=== PATIENT | female | born 1980 | race Caucasian/White ===

== ENCOUNTER 2020-04-16 12:03 | Outpatient (REF) | payer OTHER, SELFPAY ==
[2020-04-16 12:24] LABS: COVID-19 Test Negative (Negative)
== END 2020-04-16 12:04 | disposition home or self-care (01) ==
LOC: HO.LAB 12:03
PROVIDERS: Visit Provider Internal Medicine
DX: Z20.828 Contact with and (suspected) exposure to other viral communicable diseases (principal)
CPT/HCPCS: 87635; C9803

== ENCOUNTER 2020-04-22 08:41 | Outpatient (REF) | payer MEDICAID, SELFPAY ==
[2020-04-22 09:35] LABS: COVID-19 Test Negative (Negative)
== END 2020-04-22 08:42 | disposition home or self-care (01) ==
LOC: HO.LAB 08:41
PROVIDERS: Visit Provider Internal Medicine
DX: Z20.828 Contact with and (suspected) exposure to other viral communicable diseases (principal)
CPT/HCPCS: 87635; C9803

== ENCOUNTER 2020-05-10 17:14 | Outpatient (REF) | payer MEDICAID, SELFPAY ==
[2020-05-10 17:49] LABS: COVID-19 Test Negative (Negative); IDNOW Serial# 55D5AD1C
== END 2020-05-10 17:15 | disposition home or self-care (01) ==
LOC: HO.LAB 17:14
PROVIDERS: Visit Provider Internal Medicine
DX: Z20.828 Contact with and (suspected) exposure to other viral communicable diseases (principal)
CPT/HCPCS: 87635; C9803

== ENCOUNTER 2020-05-13 12:05 | Outpatient (REF) | payer MEDICAID, SELFPAY ==
[2020-05-13 12:57] LABS: COVID-19 Test Negative (Negative)
== END 2020-05-13 12:06 | disposition home or self-care (01) ==
LOC: HO.LAB 12:05
PROVIDERS: Visit Provider Internal Medicine
DX: Z20.828 Contact with and (suspected) exposure to other viral communicable diseases (principal)
CPT/HCPCS: 87635; C9803

== ENCOUNTER 2020-05-17 10:25 | Outpatient (REF) | payer OTHER, SELFPAY ==
[2020-05-17 10:46] LABS: COVID-19 Test Negative (Negative)
== END 2020-05-17 10:26 | disposition home or self-care (01) ==
LOC: HO.EMPCOV 10:25
PROVIDERS: PCP Internal Medicine; Visit Provider Internal Medicine
DX: Z20.828 Contact with and (suspected) exposure to other viral communicable diseases (principal)
CPT/HCPCS: 87635; C9803

== ENCOUNTER 2020-06-25 11:04 | Outpatient (REF) | payer OTHER, SELFPAY ==
[2020-06-25 11:21] LABS: COVID-19 Test Negative (Negative)
== END 2020-06-25 11:05 | disposition home or self-care (01) ==
LOC: HO.LAB 11:04
PROVIDERS: Visit Provider Internal Medicine
DX: Z20.822 Contact with and (suspected) exposure to COVID-19 (principal)
CPT/HCPCS: 36415; 87635; C9803

== ENCOUNTER → 2020-08-07 16:01 | Outpatient (BNVA) | payer OTHER, SELFPAY | PROVIDERS: PCP Internal Medicine; Visit Provider Student in an Organized Health Care Education/Training Program | DX: M22.2X9 Patellofemoral disorders, unspecified knee (principal) | CPT/HCPCS: 20610; 99212 ==

== ENCOUNTER → 2020-08-14 13:14 | Outpatient (BNVA) | payer OTHER, SELFPAY | PROVIDERS: PCP Internal Medicine; Visit Provider Student in an Organized Health Care Education/Training Program | DX: M22.2X9 Patellofemoral disorders, unspecified knee (principal); Z79.899 Other long term (current) drug therapy | CPT/HCPCS: 99212 ==

== ENCOUNTER 2020-11-12 15:05 | Outpatient (REF) | payer MEDICAID, SELFPAY ==
[2020-11-12 15:36] LABS: MANUAL DIFF FLAG NO
[2020-11-12 15:54] LABS: Basophils Percent Auto 0.3 % (0-2); Eosinophils Percent Auto 0.6 % (0-4); Hematocrit 40.6 % (37-47); Hemoglobin 13.3 g/dl (12.0-16.0); Imm Gran Abs Auto 0.01 X10*3/uL (0.00-0.03); Imm Gran Pct Auto 0.2 % (0.0-0.4); Lymphocytes Percent Auto 31.7 % (20-40); Mean Corpuscular HGB Conc 32.8 g/dl (31.0-35.0); Mean Corpuscular Hemoglobin 28.7 pg (27.0-33.0); Mean Corpuscular Volume 87.5 fL (80-98); Mean Platelet Volume 9.4 fL (9.4-12.3); Monocytes Absolute Auto 0.6 X10*3/uL (0.1-1.2); Monocytes Percent Auto 8.7 % (2-11); Neutrophils Absolute Auto 3.7 X10*3/uL (2.0-8.3); Neutrophils Percent Auto 58.5 % (45-73); Platelet Count 240 X10*3/uL (160-400); Red Blood Count 4.64 X10*6/uL (4.20-5.50); Red Cell Distribution Width 12.7 % (11.0-16.0); White Blood Count 6.3 X10*3/uL (4.8-10.8)
[2020-11-12 16:04] LABS: Anion Gap 11 (12-20); Blood Urea Nitrogen 13 mg/dL (9-16); Calcium 9.7 mg/dL (8.4-10.2); Carbon Dioxide 27 mmol/L (22-29); Chloride 106 mmol/L (96-108); Estimated Glomerular Filt Rate > 60; Glucose Random 75 mg/dL (60-115); Potassium 3.8 mmol/L (3.3-5.1); Sodium 140 mmol/L (135-145)
[2020-11-12 16:26] LABS: TSH reflex Free T4 1.45 uIU/mL (0.32-4.0)
== END 2020-11-12 15:06 | disposition home or self-care (01) ==
LOC: HO.LAB 15:05
PROVIDERS: Absent Provider Internal Medicine; PCP Internal Medicine; Visit Provider General Practice
DX: M22.2X1 Patellofemoral disorders, right knee (principal); R53.83 Other fatigue; R68.89 Other general symptoms and signs
CPT/HCPCS: 20610; 36415; 80048; 84443; 85025; 99212

== ENCOUNTER 2021-02-25 11:24 | Outpatient (REF) | payer MEDICAID, SELFPAY ==
[2021-02-25 12:41] LABS: COVID-19 Test Negative (Negative)
== END 2021-02-25 11:25 | disposition home or self-care (01) ==
LOC: HO.LAB 11:24
PROVIDERS: PCP Internal Medicine; Visit Provider Internal Medicine
DX: Z20.822 Contact with and (suspected) exposure to COVID-19 (principal)
CPT/HCPCS: 36415; 87635; C9803

== ENCOUNTER 2021-03-10 07:49 | Outpatient (REF) | payer MEDICAID, SELFPAY ==
[2021-03-10 08:54] LABS: COVID-19 Test Negative (Negative)
== END 2021-03-10 07:50 | disposition home or self-care (01) ==
LOC: HO.LAB 07:49
PROVIDERS: PCP Internal Medicine; Visit Provider Internal Medicine
DX: Z20.822 Contact with and (suspected) exposure to COVID-19 (principal)
CPT/HCPCS: 36415; 87635

== ENCOUNTER 2021-04-15 13:11 | Outpatient (REF) | payer MEDICAID, SELFPAY ==
[2021-04-15 15:12] LABS: COVID-19 Test Positive (Negative)
== END 2021-04-15 13:12 | disposition home or self-care (01) ==
LOC: HO.LAB 13:11
PROVIDERS: Visit Provider Internal Medicine
DX: Z20.822 Contact with and (suspected) exposure to COVID-19 (principal)
CPT/HCPCS: 36415; 87635; C9803

== ENCOUNTER 2021-04-17 12:55 | Emergency (ER) | payer MEDICAID, SELFPAY ==
--- NOTE | ~2021-04-17 | XR_ITS ---
EXAMINATION: XR CHEST CLINICAL INFORMATION: Upper respiratory symptoms. COMPARISON: Chest radiographs 01/23/2020, 05/06/2019 TECHNIQUE: Frontal view of the chest was obtained. FINDINGS: There is no lobar or segmental airspace consolidation or definite groundglass opacity. The costophrenic sulci are clear. The heart is normal in size. The vascularity is normal. The hilar and mediastinal contours are unremarkable. No acute bony abnormality. XR/XR chest 1V IMPRESSION: Unremarkable examination.
[2021-04-17 13:30] VITALS: BP 111/69; PULSE 90; RESP 17; TEMP 36.9; O2SAT 98; BMI 24.0
[2021-04-17 15:58] LABS: MANUAL DIFF FLAG NO
[2021-04-17 16:00] LABS: Hematocrit 45.3 % (37.0-47.0); Hemoglobin 15.4 g/dl (12.0-16.0); Lymphocytes Absolute Auto 1.2 X10*3/uL (1.2-4.9); Lymphocytes Percent Auto 39.8 % (20-40); Mean Corpuscular Hemoglobin 29.2 pg (27.0-33.0); Mean Platelet Volume 9.4 fL (9.4-12.3); Monocytes Absolute Auto 0.2 X10*3/uL (0.1-1.2); Monocytes Percent Auto 7.3 % (2-11); Neutrophils Absolute Auto 1.5 x10*3/uL (2.0-8.3); Neutrophils Percent Auto 52.9 % (45-73); Platelet Count 138 X10*3/uL (160-400); Red Blood Count 5.27 X10*6/uL (4.20-5.50); Red Cell Distribution Width 12.1 % (11.0-16.0); White Blood Count 2.9 X10*3/uL (4.8-10.8)
[2021-04-17 16:14] LABS: Anion Gap 15 (12-20); Blood Urea Nitrogen 7 mg/dL (9-16); Calcium 8.6 mg/dL (8.4-10.2); Carbon Dioxide 26 mmol/L (22-29); Chloride 101 mmol/L (96-108); Creatinine Clr Calc Pharmacy 81.5; Estimated Glomerular Filt Rate > 60; Glucose Random 96 mg/dL (60-115); Potassium 3.5 mmol/L (3.3-5.1); Sodium 138 mmol/L (135-145)
[2021-04-17 16:15] VITALS: BP 117/68; PULSE 79; RESP 18; TEMP 36.9; O2SAT 98
[2021-04-17] MEDS: 0.9 % Sodium Chloride 1,000 ML 999 ML IVCONT ×2 (16:20→17:44)
[2021-04-17] MEDS: ondansetron HCL 4 MG/2 ML VIAL IVPUSH (16:21)
[2021-04-17 16:23] LABS: Alanine Aminotransferase 71 U/L (0-31); Albumin Level 4.3 g/dL (3.5-5.0); Alkaline Phosphatase 46 U/L (39-117); Aspartate Amino Transferase 31 U/L (5-31); Bilirubin Direct 0.3 mg/dL (0.0-0.5); Bilirubin Total 0.9 mg/dL (0.0-1.0); Magnesium 2.3 mg/dL (1.6-2.6); Total Protein 7.3 g/dL (6.5-8.0)
[2021-04-17] MEDS: Ketorolac Tromethamine 15 MG/ML VIAL 30 MG IVPUSH (16:24)
--- NOTE | 2021-04-17 16:26 | ED.URI ---
HPI - URI/Sore Throat General Chief Complaint: Upper Respiratory Symptoms Stated Complaint: +covid, dehydrated Time Seen by Provider: 04/17/21 16:01 Source: patient Mode of arrival: ambulatory Limitations: no limitations History of Present Illness HPI Narrative: 41 y/o female with no medical history presents to the ER with low back pain, body aches, nausea, decreased PO intake, and chills in the setting of being diagnosed with COVID-19 two days ago. She reports her son tested positive 1 week ago. She started to develop symptoms on 04/13. She reports aches and pains in her entire back, both of her legs. She has been taking Tylenol with no relief. Patient also reports pain when she urinates. No burning or blood in her urine. Pain is mostly located in her low back, but admits it is constant. She denies SOB, [place], or chest pain. She has not had any fevers at home but has had chills every day. She has not eaten or drank much in the last 2 days. She thinks she is dehydrated. She reports dry heaving this morning but no vomitus came up. She has no abdominal pain. Denies chance of . MD elicited complaint: other (chills, body aches, ) Pertinent past history: other (COVID-19 positive ) Onset (ago): day(s) (5) Consistency: constant Severity: moderate Description of mucous: clear Able to tolerate fluids by mouth: Yes Exacerbating factors: exertion Relieving factors: rest Context: sick contacts Associated symptoms: chills, myalgias, nasal congestion, nausea and vomiting Treatments prior to arrival: acetaminophen Related Data Home Medications Medication Instructions Recorded Confirmed famotidine 20 mg tablet (Pepcid) 20 mg PO DAILY 08/07/20 11/12/20 fluoxetine 40 mg capsule 40 mg PO DAILY 08/07/20 11/12/20 Previous Rx's Medication Instructions Recorded ondansetron 4 mg disintegrating 4 mg PO Q8H PRN #7 tab 04/17/21 tablet Allergies Allergy/AdvReac Type Severity Reaction Status Date / Time No Known Allergies Allergy Verified 04/17/21 13:30 [No Known Allergies*] Review of Systems Review of Systems: Constitutional: No Fever, + Chills ENT/Mouth: No sore throat, No Rhinorrhea, No Swallowing Difficulty Eyes: No Eye Pain, No Swelling, No Redness Cardiovascular: No Chest Pain, No SOB, No Orthopnea, No Edema Respiratory: No Cough, No Sputum, No Wheezing, No dyspnea Gastrointestinal: + Nausea, + Vomiting, No Diarrhea, No abdominal Pain, No Hematochezia, No Melena Genitourinary: No Dysuria, No Urinary Frequency, No Hematuria Musculoskeletal: + joint pain, + Myalgias Skin: No Skin Lesions, No rash Neuro: + Weakness, No Numbness, No Dizziness, + Headache Psych: No Anxiety/Panic, No Depression Heme/Lymph: No Bruising, No Lymphadenopathy Endocrine: No Polyuria, No Polydipsia [facility] Past Medical History Attestation statement: The following information was validated with the patient. Medical History Anxiety Depression GERD (gastroesophageal reflux disease) Migraine Surgical History Hx of appendectomy Hx of cholecystectomy Family History Family History (Updated 08/07/20 @ 16:11 by Nini Islas CMA) Father Diabetes Mother Colon cancer Social History Social History (Updated 11/12/20 @ 15:30 by Royal Vences LPN) Alcohol intake: never Patient Tobacco Use Status: Former Tobacco user Cigarettes Per Day: 10 Years Smoked: 12 e-Cigarette/Vaping Use: Never Used Advance Directives: No Advance Directives Information Provided: No Patient : No Physical Exam Vital Signs: Vital Signs: Last Vital Signs Temp 98.1 F 04/17/21 19:18 Pulse 71 04/17/21 19:18 Resp 16 04/17/21 19:18 BP 96/54 L 04/17/21 19:18 Pulse Ox 98 04/17/21 19:18 Body Mass Index 24.0 Appearance: Alert. Oriented X3. No acute distress. Eyes: Pupils equal, round and reactive to light. ENT: Pharynx normal. Neck: Normal inspection. Neck supple, no LAD. CVS: Normal heart rate and rhythm. Pulses normal. Respiratory: No respiratory distress. Breath sounds normal. Abdomen: Soft and nontender. +BS x4 Back: mild tenderness throughout bilateral soft tissues of thoracic and lumbar areas Skin: Skin warm and dry. Normal skin color. Normal skin turgor. No rashes. Extremities: No lower extremity edema. No calf tenderness. Neuro: Oriented X 3. Grossly normal, nonfocal. Course Course Course Narrative: 41 y/o female who was recently diagnosed with COVID-19 presents to the ER with myalgias, N/V and chills x2 days along with decreased PO intake. She is nontoxic appearing and VS are normal. No abdominal tenderness. Basic labs ordered, will give IVF, Zofran and Toradol and reassess. Will also check UA and Upreg given pain with urination. Reevaluation(s) Reevaluation #1: Lab workup is largely unremarkable. UA still pending. IVF infusing. Reevaluation #2: Urinalysis negative for infection. Patient feeling better after Toradol. Vital signs remained stable, she is resting comfortably. At this time she is stable for discharge home with supportive care. Patient agrees with plan. MDM - URI/Sore Throat Lab Data Result diagrams: 04/17/21 15:53 04/17/21 15:53 Labs: Lab Results 04/17/21 04/17/21 04/17/21 Range/Units 15:53 15:53 18:32 WBC 2.9 L (4.8-10.8) X10*3/uL RBC 5.27 (4.20-5.50) X10*6/uL Hgb 15.4 (12.0-16.0) g/dl Hct 45.3 (37.0-47.0) % MCV 86.0 (80.0-98.0) fL MCH 29.2 (27.0-33.0) pg MCHC 34.0 (31.0-35.0) g/dl RDW 12.1 (11.0-16.0) % Plt Count 138 L (160-400) X10*3/uL MPV 9.4 (9.4-12.3) fL Immature Gran % (Auto) 0.0 (0.0-0.4) % Neut % (Auto) 52.9 (45-73) % Lymph % (Auto) 39.8 (20-40) % [place] % (Auto) 7.3 (2-11) % Eos % (Auto) 0.0 (0-4) % Baso % (Auto) 0.0 (0-2) % Lymph # (Auto) 1.2 (1.2-4.9) X10*3/uL [place] # (Auto) 0.2 (0.1-1.2) X10*3/uL Eos # (Auto) 0.0 (0.0-0.4) X10*3/uL Baso # (Auto) 0.0 (0.0-0.2) X10*3/uL Abs Immat Gran (auto) 0.00 (0.00-0.03) X10*3/uL Absolute Neuts (auto) 1.5 L (2.0-8.3) x10*3/uL Absolute Nucleated RBC 0.000 (0.0-0.012) X10*3/uL Nucleated RBC % (auto) 0.0 (0.0-0.2) /100WBC Sodium 138 (135-145) mmol/L Potassium 3.5 (3.3-5.1) mmol/L Chloride 101 (96-108) mmol/L Carbon Dioxide 26 (22-29) mmol/L Anion Gap 15 (12-20) BUN 7 L (9-16) mg/dL Creatinine 0.80 (0.5-1.4) mg/dL Estim Creat Clear Calc 81.5 Estimated GFR > 60 Random Glucose 96 (60-115) mg/dL Calcium 8.6 D (8.4-10.2) mg/dL Magnesium 2.3 (1.6-2.6) mg/dL Total Bilirubin 0.9 (0.0-1.0) mg/dL Direct Bilirubin 0.3 (0.0-0.5) mg/dL AST 31 (5-31) U/L ALT 71 H (0-31) U/L Alkaline Phosphatase 46 (39-117) U/L Total Protein 7.3 (6.5-8.0) g/dL Albumin 4.3 (3.5-5.0) g/dL Urine Color YELLOW Urine Appearance CLEAR Urine pH 6.0 (5.0-8.0) Ur Specific [place] 1.020 (1.005-1.025) Urine Protein NEG (NEG-TRACE) MG/DL Urine Glucose (UA) NEG (NEG) MG/DL Urine Ketones NEG (NEG) MG/DL Urine Blood 1+ H (NEG) Urine Nitrite NEG (NEG) Ur Leukocyte Esterase NEG (NEG) Urine RBC 1-4 (0) /HPF Urine WBC 0 (0-4) /HPF Ur Squamous Epith Cells 1+ /LPF Urine Bacteria 1+ /LPF Urine Test (NEGATIVE) 04/17/21 Range/Units 18:32 WBC (4.8-10.8) X10*3/uL RBC (4.20-5.50) X10*6/uL Hgb (12.0-16.0) g/dl Hct (37.0-47.0) % MCV (80.0-98.0) fL MCH (27.0-33.0) pg MCHC (31.0-35.0) g/dl RDW (11.0-16.0) % Plt Count (160-400) X10*3/uL MPV (9.4-12.3) fL Immature Gran % (Auto) (0.0-0.4) % Neut % (Auto) (45-73) % Lymph % (Auto) (20-40) % [place] % (Auto) (2-11) % Eos % (Auto) (0-4) % Baso % (Auto) (0-2) % Lymph # (Auto) (1.2-4.9) X10*3/uL [place] # (Auto) (0.1-1.2) X10*3/uL Eos # (Auto) (0.0-0.4) X10*3/uL Baso # (Auto) (0.0-0.2) X10*3/uL Abs Immat Gran (auto) (0.00-0.03) X10*3/uL Absolute Neuts (auto) (2.0-8.3) x10*3/uL Absolute Nucleated RBC (0.0-0.012) X10*3/uL Nucleated RBC % (auto) (0.0-0.2) /100WBC Sodium (135-145) mmol/L Potassium (3.3-5.1) mmol/L Chloride (96-108) mmol/L Carbon Dioxide (22-29) mmol/L Anion Gap (12-20) BUN (9-16) mg/dL Creatinine (0.5-1.4) mg/dL Estim Creat Clear Calc Estimated GFR Random Glucose (60-115) mg/dL Calcium (8.4-10.2) mg/dL Magnesium (1.6-2.6) mg/dL Total Bilirubin (0.0-1.0) mg/dL Direct Bilirubin (0.0-0.5) mg/dL AST (5-31) U/L ALT (0-31) U/L Alkaline Phosphatase (39-117) U/L Total Protein (6.5-8.0) g/dL Albumin (3.5-5.0) g/dL Urine Color Urine Appearance Urine pH (5.0-8.0) Ur Specific [place] (1.005-1.025) Urine Protein (NEG-TRACE) MG/DL Urine Glucose (UA) (NEG) MG/DL Urine Ketones (NEG) MG/DL Urine Blood (NEG) Urine Nitrite (NEG) Ur Leukocyte Esterase (NEG) Urine RBC (0) /HPF Urine WBC (0-4) /HPF Ur Squamous Epith Cells /LPF Urine Bacteria /LPF Urine Test NEGATIVE (NEGATIVE) Critical Care Time Critical Care Time Critical Care Time: No Discharge Plan Discharge Clinical Impression: COVID-19 Patient Disposition: Home, Self-Care Instructions: Covid-19 Viral Syndrome and Novel Coronavirus (ED) Hey/Ath Additional Instructions: Your lab workup today was unremarkable. Your chest x-ray and oxygen levels were normal. Rest. Drink plenty of fluids. Do not go out in public 10 days from your diagnosis on 04/15. Take over the counter cold/flu medications as needed for your symptoms. Take Tylenol and/or Motrin as needed for fevers and body aches. Follow up with your doctor this week. If you develop new or worsening symptoms call 911 or come back to the ER for further evaluation. Prescriptions: New ondansetron 4 mg tablet,disintegrating 4 mg PO Q8H PRN (Reason: nausea and vomiting) Qty: 7 RF: 0 No Action fluoxetine 40 mg capsule 40 mg PO DAILY RF: 0 famotidine [Pepcid] 20 mg tablet 20 mg PO DAILY RF: 0
[2021-04-17 18:38] LABS: Appearance Urine CLEAR; Color Urine YELLOW; Glucose Urine UA NEG (NEG); Leukocyte Esterase Urine NEG (NEG); Nitrite Urine NEG (NEG); UACC Culture Trigger NO; Urine Blood 1+ (NEG); Urine Ketones NEG (NEG); Urine Protein NEG (NEG-TRACE)
[2021-04-17 18:39] LABS: UPreg QC Valid YES; Urine Pregnancy NEGATIVE (NEGATIVE)
[2021-04-17 18:43] LABS: Bacteria Urine 1+ /LPF; Squamous Epithelial Cell Urine 1+ /LPF; WBC Urine 0 /HPF (0-4)
[2021-04-17 19:18] VITALS: BP 96/54; PULSE 71; RESP 16; TEMP 36.7; O2SAT 98
[2021-04-17 19:46] VITALS: BP 104/66; PULSE 58; RESP 16; TEMP 36.7
== END 2021-04-17 19:53 | disposition home or self-care (01) ==
PROVIDERS: Physician Assistant; Emergency Provider Emergency Medicine Emergency Medical Services; PCP Internal Medicine
DX: U07.1 COVID-19 (principal)
CPT/HCPCS: 36415; 71045; 80048; 80076; 81001; 81025; 83735; 85025; 96361; 96374; 96375; 99284; J1885; J2405

== ENCOUNTER 2021-07-23 15:27 | Outpatient (REF) | payer MEDICAID, SELFPAY ==
[2021-07-23 15:42] LABS: MANUAL DIFF FLAG NO
[2021-07-23 15:47] LABS: Basophils Percent Auto 0.3 % (0-2); Eosinophils Percent Auto 0.7 % (0-4); Hematocrit 40.9 % (37.0-47.0); Hemoglobin 13.6 g/dl (12.0-16.0); Lymphocytes Absolute Auto 2.2 X10*3/uL (1.2-4.9); Lymphocytes Percent Auto 37.6 % (20-40); Mean Corpuscular HGB Conc 33.3 g/dl (31.0-35.0); Mean Corpuscular Hemoglobin 29.3 pg (27.0-33.0); Mean Corpuscular Volume 88.1 fL (80.0-98.0); Mean Platelet Volume 9.2 fL (9.4-12.3); Monocytes Absolute Auto 0.3 X10*3/uL (0.1-1.2); Monocytes Percent Auto 5.9 % (2-11); Neutrophils Absolute Auto 3.2 x10*3/uL (2.0-8.3); Neutrophils Percent Auto 55.5 % (45-73); Platelet Count 260 X10*3/uL (160-400); Red Blood Count 4.64 X10*6/uL (4.20-5.50); Red Cell Distribution Width 13.2 % (11.0-16.0); White Blood Count 5.8 X10*3/uL (4.8-10.8)
[2021-07-23 16:11] LABS: Estimated Average Glucose 103 mg/dL; Hemoglobin A1c % 5.2 %
[2021-07-23 16:19] LABS: Alanine Aminotransferase 18 U/L (0-31); Albumin Level 4.3 g/dL (3.5-5.0); Alkaline Phosphatase 48 U/L (39-117); Anion Gap 10 (12-20); Aspartate Amino Transferase 19 U/L (5-31); Bilirubin Total 1.7 mg/dL (0.0-1.0); Blood Urea Nitrogen 9 mg/dL (9-16); Calcium 9.6 mg/dL (8.4-10.2); Carbon Dioxide 29 mmol/L (22-29); Chloride 104 mmol/L (96-108); Estimated Glomerular Filt Rate > 60; Glucose Random 94 mg/dL (60-115); Potassium 4.4 mmol/L (3.3-5.1); Sodium 139 mmol/L (135-145); Total Protein 7.3 g/dL (6.5-8.0)
[2021-07-23 16:39] LABS: Thyroid Stimulating Hormone 0.63 uIU/mL (0.32-4.0)
== END 2021-07-23 15:28 | disposition home or self-care (01) ==
LOC: HO.LAB 15:27
PROVIDERS: PCP Internal Medicine; Visit Provider Internal Medicine
DX: F41.9 Anxiety disorder, unspecified (principal); L65.9 Nonscarring hair loss, unspecified
CPT/HCPCS: 36415; 80053; 83036; 84443; 85025

== ENCOUNTER 2021-09-26 14:00 | Outpatient (REF) | payer MEDICAID, SELFPAY ==
--- NOTE | ~2021-09-26 | XR_ITS ---
EXAMINATION: BILATERAL KNEE X-RAY CLINICAL INFORMATION: Bilateral knee pain COMPARISON: Previous exam August 2018 TECHNIQUE: 2 views of each knee FINDINGS: Right: Bone alignment is normal. No fracture or dislocation is seen. The joint spaces are normal. There is no joint effusion. Left knee: Bone alignment is normal. No fracture or dislocation is seen. The joint spaces are normal. There is no joint effusion. XR/XR knee LT 2V IMPRESSION: Normal exam.
--- NOTE | ~2021-09-26 | XR_ITS ---
EXAMINATION: BILATERAL KNEE X-RAY CLINICAL INFORMATION: Bilateral knee pain COMPARISON: Previous exam August 2018 TECHNIQUE: 2 views of each knee FINDINGS: Right: Bone alignment is normal. No fracture or dislocation is seen. The joint spaces are normal. There is no joint effusion. Left knee: Bone alignment is normal. No fracture or dislocation is seen. The joint spaces are normal. There is no joint effusion. XR/XR knee RT 2V IMPRESSION: Normal exam.
== END 2021-09-26 14:01 | disposition home or self-care (01) ==
LOC: HO.XRAY 14:00
PROVIDERS: PCP Internal Medicine; Visit Provider Internal Medicine
DX: M25.561 Pain in right knee (principal); M25.562 Pain in left knee
CPT/HCPCS: 73560

== ENCOUNTER 2021-10-02 09:56 | Outpatient (REF) | payer MEDICAID, SELFPAY ==
[2021-10-02 10:45] LABS: COVID-19 Test Negative (Negative)
== END 2021-10-02 09:57 | disposition home or self-care (01) ==
LOC: HO.LAB 09:56
PROVIDERS: Visit Provider Internal Medicine
DX: Z20.822 Contact with and (suspected) exposure to COVID-19 (principal)
CPT/HCPCS: 87635; C9803

== ENCOUNTER 2021-11-04 13:05 | Outpatient (REF) | payer MEDICAID, SELFPAY ==
[2021-11-04 14:05] LABS: COVID-19 Test Negative (Negative); IDNOW Serial# 08D9AD1C
== END 2021-11-04 13:06 | disposition home or self-care (01) ==
LOC: HO.LAB 13:05
PROVIDERS: Visit Provider Internal Medicine
DX: Z20.822 Contact with and (suspected) exposure to COVID-19 (principal)
CPT/HCPCS: 87635; C9803

== ENCOUNTER 2021-11-06 08:06 | Outpatient (REF) | payer MEDICAID, SELFPAY ==
[2021-11-06 08:35] LABS: COVID-19 Test Negative (Negative)
== END 2021-11-06 08:07 | disposition home or self-care (01) ==
LOC: HO.LAB 08:06
PROVIDERS: Visit Provider Internal Medicine
DX: Z20.822 Contact with and (suspected) exposure to COVID-19 (principal)
CPT/HCPCS: 87635; C9803

== ENCOUNTER 2022-01-01 14:53 | Outpatient (REF) | payer MEDICAID, SELFPAY ==
[2022-01-01 15:37] LABS: COVID-19 Test Negative (Negative)
== END 2022-01-01 14:54 | disposition home or self-care (01) ==
LOC: HO.LAB 14:53
PROVIDERS: Visit Provider Internal Medicine
DX: Z20.822 Contact with and (suspected) exposure to COVID-19 (principal)
CPT/HCPCS: 87635; C9803

== ENCOUNTER 2022-01-06 13:29 | Emergency (ER) | payer MEDICAID, SELFPAY ==
--- NOTE | ~2022-01-06 | XR_ITS ---
EXAMINATION: XR CHEST CLINICAL INFORMATION: Chest pain COMPARISON: Previous chest x-ray most recent April 2021 TECHNIQUE: Frontal view of the chest was obtained. FINDINGS: No significant abnormality is noted involving the heart, lungs, mediastinum, bony thorax or soft tissues. XR/XR chest 1V IMPRESSION: Unremarkable examination.
[2022-01-06 13:35] VITALS: BP 118/65; PULSE 82; RESP 18; TEMP 36.2; O2SAT 97; BMI 21.6
--- NOTE | 2022-01-06 13:37 | ECG_ITS ---
Test Reason : cp Blood Pressure : / mmHG Vent. Rate : 070 BPM Atrial Rate : 070 BPM P-R Int : 126 ms QRS Dur : 084 ms QT Int : 392 ms P-R-T Axes : 073 067 071 degrees QTc Int : 423 ms Normal sinus rhythm Normal ECG When compared with ECG of 06-MAY-2019 21:53, No significant change was found Referred By: Generic ED Physician Electronically Signed By:LORI RAO MD
[2022-01-06 14:14] LABS: MANUAL DIFF FLAG NO
[2022-01-06 14:17] LABS: Basophils Percent Auto 0.5 % (0-2); Eosinophils Absolute Auto 0.1 X10*3/uL (0.0-0.4); Eosinophils Percent Auto 0.8 % (0-4); Hematocrit 41.9 % (37.0-47.0); Hemoglobin 13.8 g/dl (12.0-16.0); Imm Gran Abs Auto 0.02 X10*3/uL (0.00-0.03); Imm Gran Pct Auto 0.3 % (0.0-0.4); Lymphocytes Absolute Auto 2.3 X10*3/uL (1.2-4.9); Lymphocytes Percent Auto 36.6 % (20-40); Mean Corpuscular HGB Conc 32.9 g/dl (31.0-35.0); Mean Corpuscular Hemoglobin 29.8 pg (27.0-33.0); Mean Corpuscular Volume 90.5 fL (80.0-98.0); Mean Platelet Volume 8.7 fL (9.4-12.3); Monocytes Absolute Auto 0.4 X10*3/uL (0.1-1.2); Neutrophils Absolute Auto 3.5 x10*3/uL (2.0-8.3); Neutrophils Percent Auto 55.8 % (45-73); Platelet Count 254 X10*3/uL (160-400); Red Blood Count 4.63 X10*6/uL (4.20-5.50); Red Cell Distribution Width 11.9 % (11.0-16.0); White Blood Count 6.3 X10*3/uL (4.8-10.8)
[2022-01-06 14:28] LABS: Anion Gap 14 (12-20); Blood Urea Nitrogen 10 mg/dL (9-16); Calcium 8.9 mg/dL (8.4-10.2); Carbon Dioxide 27 mmol/L (22-29); Chloride 101 mmol/L (96-108); Estimated Glomerular Filt Rate > 60; Glucose Random 99 mg/dL (60-115); Potassium 3.8 mmol/L (3.3-5.1); Sodium 138 mmol/L (135-145)
[2022-01-06 14:35] LABS: Troponin-I High Sensitivity < 3.5 ng/L (<3.5-17.0)
--- NOTE | 2022-01-06 17:18 | ED_ITS ---
HPI - Chest Pain General Chief Complaint: Chest Pain Stated Complaint: Chest pain Time Seen by Provider: 01/06/22 15:01 Source: patient Mode of arrival: ambulatory History of Present Illness HPI narrative: 41-year-old female with a past medical history of anxiety, depression, GERD, migraines, presenting to the ED complaining of episode of chest discomfort, increased anxiety, palpitations and mild SOB lasting 2 hours [employer]. Reports symptoms are improved/resolved at present. States mild worsening of pain with deep inspiration. Denies fever, chills, cough, pedal edema, calf pain, recent travel, history of clots, OCPs MD complaint: chest discomfort Onset (ago): hour(s) Related Data Home Medications Medication Instructions Recorded Confirmed famotidine 20 mg tablet (Pepcid) 20 mg PO DAILY 08/07/20 11/12/20 fluoxetine 40 mg capsule 40 mg PO DAILY 08/07/20 11/12/20 Previous Rx's Medication Instructions Recorded ondansetron 4 mg disintegrating 4 mg PO Q8H PRN nausea and 04/17/21 tablet vomiting #7 tabs Allergies Allergy/AdvReac Type Severity Reaction Status Date / Time No Known Allergies Allergy Verified 01/06/22 13:35 [No Known Allergies*] Review of Systems Review of Systems: Constitutional: No Fever, No Chills, No Fatigue, No Malaise ENT/Mouth: No Ear Pain, No Nasal Congestion, No sore throat, No Rhinorrhea, No Swallowing Difficulty Eyes: No Eye Pain, No Swelling, No Redness, No Vision Changes Cardiovascular: + Chest Pain, No SOB, No Dyspnea on Exertion, No Orthopnea, No Edema, + Palpitations Respiratory: No Cough, No Sputum, No Dyspnea Gastrointestinal: No Nausea, No Vomiting, No Diarrhea, No Constipation, No Abdominal pain Genitourinary: No Dysuria, No Urinary Frequency, No Hematuria, No Flank Pain, No Urinary Flow Changes, No Hesitancy Musculoskeletal: No joint pain, No Myalgias, No Joint Swelling Skin: No Skin Lesions, No rash Neuro: No Weakness, No Dizziness, No Headache Psych: +increased anxiety Yes all other systems are reviewed and are negative Constitutional: Constitutional: Reports as per [facility] Past Medical History Attestation statement: The following information was validated with the patient. Medical History Anxiety Depression GERD (gastroesophageal reflux disease) Migraine Surgical History Hx of appendectomy Hx of cholecystectomy Family History Family History Father Diabetes Mother Colon cancer Social History Social History Alcohol intake: never Patient Tobacco Use Status: Former Tobacco user Cigarettes Per Day: 10 Years Smoked: 12 e-Cigarette/Vaping Use: Never Used Advance Directives: No Advance Directives Information Provided: No Patient : No Physical Exam Vital Signs: Vital Signs: Last Vital Signs Temp 97.2 F 01/06/22 13:35 Pulse 82 01/06/22 13:35 Resp 18 01/06/22 13:35 BP 118/65 01/06/22 13:35 Pulse Ox 97 01/06/22 13:35 O2 Del Method 01/06/22 13:35 BMI result Body Mass Index 21.6 Const: General: cooperative, healthy appearing, no acute distress, alert, awake and Physically active Orientation/consciousness: patient oriented x3 Limitations: no limitations HEENT: Head: Yes normal to inspection and Yes atraumatic Ears: hearing grossly normal bilaterally General nose exam: Normal external nose present Face and sinus: Yes normal facial exam Eyes: General: appearance normal, both eyes and all related structures EOM: EOMs intact bilaterally Neck: Neck: Yes normal visual inspection and Yes no meningeal signs Resp: Effort & Inspection: normal respiratory effort and no respiratory distress Auscultation: clear to auscultation bilaterally, no crackles, no rales and no rhonchi Cardio: Rate: regular rate Heart sounds: S1 normal heart sound present and S2 normal heart sound present Skin: Rashes: no rashes Wounds: no wounds Neuro: General: patient oriented x3, tone normal and no meningeal signs Gait exam (Neuro): Normal gait present Extrem: General: Yes normal to inspection, Yes no pedal edema and Yes no calf tenderness Course Course Course Narrative: -labs unremarkable. Initial troponin negative > will obtain 3 hour repeat XR chest 1V IMPRESSION: Unremarkable examination. -TSH WNL -[id number]--patient would like to leave prior to repeat troponin results. Will call patient if result is abnormal MDM - Chest Pain MDM Narrative Medical decision making narrative: 41-year-old female with a past medical history of anxiety, depression, GERD, migraines, presenting to the ED complaining of episode of chest discomfort, increased anxiety, palpitations and mild SOB lasting 2 hours [employer]. On exam vital signs stable, in the ED, reports symptomatic improvement present, lungs CTA, no pedal edema or calf tenderness on exam. Concern for anxiety reaction vs ACS. Symptoms atypical for PE, pneumonia or viral illness Plan: EKG, labs, CXR Differential Diagnosis Differential diagnosis: Likely atypical chest pain and chest pain Medical Records Data Attestation: I reviewed the patient's medical records. Lab Data Attestation: I reviewed the patient's lab results. Result diagrams: 01/06/22 14:08 01/06/22 14:08 Labs: Lab Results 01/06/22 01/06/22 01/06/22 Range/Units 14:08 14:08 14:08 WBC 6.3 (4.8-10.8) X10*3/uL RBC 4.63 (4.20-5.50) X10*6/uL Hgb 13.8 (12.0-16.0) g/dl Hct 41.9 (37.0-47.0) % MCV 90.5 (80.0-98.0) fL MCH 29.8 (27.0-33.0) pg MCHC 32.9 (31.0-35.0) g/dl RDW 11.9 (11.0-16.0) % Plt Count 254 (160-400) X10*3/uL MPV 8.7 L (9.4-12.3) fL Immature Gran % (Auto) 0.3 (0.0-0.4) % Neut % (Auto) 55.8 (45-73) % Lymph % (Auto) 36.6 (20-40) % [place] % (Auto) 6.0 (2-11) % Eos % (Auto) 0.8 (0-4) % Baso % (Auto) 0.5 (0-2) % Lymph # (Auto) 2.3 (1.2-4.9) X10*3/uL [place] # (Auto) 0.4 (0.1-1.2) X10*3/uL Eos # (Auto) 0.1 (0.0-0.4) X10*3/uL Baso # (Auto) 0.0 (0.0-0.2) X10*3/uL Abs Immat Gran (auto) 0.02 (0.00-0.03) X10*3/uL Absolute Neuts (auto) 3.5 (2.0-8.3) x10*3/uL Absolute Nucleated RBC 0.000 (0.0-0.012) X10*3/uL Nucleated RBC % (auto) 0.0 (0.0-0.2) /100WBC Sodium 138 (135-145) mmol/L Potassium 3.8 (3.3-5.1) mmol/L Chloride 101 (96-108) mmol/L Carbon Dioxide 27 (22-29) mmol/L Anion Gap 14 (12-20) BUN 10 (9-16) mg/dL Creatinine 0.86 (0.5-1.4) mg/dL Estim Creat Clear Calc 79.0 Estimated GFR > 60 Random Glucose 99 (60-115) mg/dL Calcium 8.9 D (8.4-10.2) mg/dL Troponin I High Sens < 3.5 (<3.5-17.0) ng/L TSH 1.95 (0.32-4.0) uIU/mL Discharge Plan Discharge Clinical Impression: Atypical chest pain Patient Disposition: Home, Self-Care Instructions: Noncardiac Chest Pain (ED) Additional Instructions: your blood work was reassuring you will be contacted if your results are abnormal your x-ray was within normal limits If pain persists or worsens/becomes unbearable, fever or shortness of breath return to the emergency department Prescriptions: No Action ondansetron 4 mg tablet,disintegrating 4 mg PO Q8H PRN (Reason: nausea and vomiting) Qty: 7 0RF fluoxetine 40 mg capsule 40 mg PO DAILY famotidine [Pepcid] 20 mg tablet 20 mg PO DAILY Referrals: Kristina Anne MD [Primary Care Provider] - 3 days
[2022-01-06 17:52] LABS: TSH reflex Free T4 1.95 uIU/mL (0.32-4.0)
== END 2022-01-06 18:07 | disposition home or self-care (01) ==
PROVIDERS: Physician Assistant; Emergency Provider Emergency Medicine; PCP Internal Medicine
DX: R07.89 Other chest pain (principal)
CPT/HCPCS: 36415; 71045; 80048; 84443; 84484; 85025; 93005; 99283; 99284

== ENCOUNTER 2022-07-13 08:39 | Outpatient (REF) | payer MEDICAID, SELFPAY ==
--- NOTE | ~2022-07-13 | CT_ITS ---
EXAMINATION: CT LUMBAR SPINE WITHOUT CONTRAST CLINICAL INFORMATION: Low back pain. COMPARISON: None TECHNIQUE: Multidetector helical imaging acquired in the axial plane with generation of reformatted acquisitions. This CT examination was performed using dose optimization techniques as appropriate, variously including the following: *Automated exposure control *Adjustment of mA and/or kV according to patient size (this includes techniques or standardized protocols for targeted exams where dose is matched to indication/reason for exam; i.e. extremities or head) *Use of iterative reconstruction technique DLP; 348 mGy-cm FINDINGS: There is a mild leftward curvature of the lumbar spine. The patient is status post previous anterior lumbar interbody fusion with a solid arthrodesis demonstrated at the L5-S1 level. No hardware fracture or periprosthetic lucency is seen. No acute fracture is seen. There is no central canal stenosis or foraminal narrowing. The disc spaces are well preserved. The paraspinal soft tissues and imaged bony pelvis appear normal. Postsurgical changes noted in the right lower quadrant of the abdomen with surgical clips partially visualized. The patient has also had a prior cholecystectomy. CT/CT lumbar spine wo IV con IMPRESSION: No acute abnormality. Prior anterior lumbar interbody fusion with a solid arthrodesis at the L5-S1 level. Mild leftward curvature of the lumbar spine.
== END 2022-07-13 08:40 | disposition home or self-care (01) ==
LOC: HO.CT 08:39
PROVIDERS: PCP Family Medicine; Visit Provider Family Medicine
DX: M54.41 Lumbago with sciatica, right side (principal)
CPT/HCPCS: 72131

== ENCOUNTER 2022-11-24 15:00 | Outpatient (RCR) | payer MEDICAID, SELFPAY | END 2022-11-24 15:40 | disposition home or self-care (01) | LOC: HO.PT 15:00 | PROVIDERS: PCP Internal Medicine; Visit Provider Family Medicine | DX: M54.41 Lumbago with sciatica, right side (principal) | CPT/HCPCS: 97110; 97112; 97140; 97162; 97530 ==

== ENCOUNTER 2023-05-17 13:03 | Outpatient (REF) | payer MEDICAID, SELFPAY ==
--- NOTE | ~2023-05-17 | MM_ITS ---
EXAMINATION: MM SCREENING DIGITAL BREAST TOMOSYNTHESIS, BILATERAL CLINICAL INFORMATION: Screening. Asymptomatic. COMPARISON: Mammography: This study is compared with prior exams dating back to 2018. TECHNIQUE: Digital breast tomosynthesis is performed in both the craniocaudal and mediolateral oblique views along with computer-aided detection (CAD). Synthesized 2D images are generated from the tomosynthesis. FINDINGS: There are scattered areas of fibroglandular density (ACR BI-RADS breast composition Category b). Just inferolateral to the posterior nipple line of the left breast, there is a focal asymmetry which warrants additional mammographic and targeted sonographic evaluation In the right breast, there are no significant masses, abnormal calcifications, or other abnormalities. There are bilateral nipple rings. MM/MM tomosynthesis screening BI IMPRESSION: Focal asymmetry of the left breast warrants additional mammographic and targeted sonographic evaluation. No mammographic signs of malignancy right breast. ASSESSMENT: BI-RADS BI-RADS 0 - Incomplete: Needs additional Imaging. RECOMMENDATION: 1. Additional views of the left breast 2. Targeted ultrasound if warranted after review of the additional views. 3. Radiology department staff will contact the patient for additional imaging. Additional Imaging required This examination should not preclude the clinical evaluation of a suspicious palpable abnormality. This patient's information was entered into a reminder system with a target due date for their next mammogram.
== END 2023-05-17 13:04 | disposition home or self-care (01) ==
LOC: HO.MAMMO 13:03
PROVIDERS: PCP Internal Medicine; Visit Provider Internal Medicine
DX: Z12.31 Encounter for screening mammogram for malignant neoplasm of breast (principal)
CPT/HCPCS: 77063; 77067

== ENCOUNTER → 2023-05-17 13:15 | Outpatient (BNV) | payer MEDICAID, SELFPAY | PROVIDERS: PCP Internal Medicine; Visit Provider Radiology Diagnostic Radiology | DX: Z12.31 Encounter for screening mammogram for malignant neoplasm of breast (principal) | CPT/HCPCS: 77063; 77067 ==

== ENCOUNTER → 2023-05-21 20:30 | Outpatient (REF) | payer MEDICAID, SELFPAY | LOC: HO.SL 20:30 | PROVIDERS: PCP Internal Medicine; Visit Provider Internal Medicine | DX: Z13.89 Encounter for screening for other disorder (principal) ==

== ENCOUNTER 2023-07-28 08:49 | Outpatient (REF) | payer OTHER, SELFPAY ==
[2023-07-28 09:17] LABS: MANUAL DIFF FLAG NO
[2023-07-28 09:35] LABS: Appearance Urine Cloudy; Color Urine Yellow; Glucose Urine UA Negative (Negative); Leukocyte Esterase Urine Moderate (2+) (Negative); Nitrite Urine Negative (Negative); PH 5.5 (5.0-9.0); UMIC TRIGGER UA YES; Urine Blood Negative (Negative); Urine Ketones Negative (Negative); Urine Protein Negative (Neg-Trace)
[2023-07-28 09:37] LABS: Basophils Percent Auto 0.5 % (0-2); Eosinophils Percent Auto 0.6 % (0-4); Hematocrit 42.9 % (37.0-47.0); Hemoglobin 14.5 g/dl (12.0-16.0); Imm Gran Abs Auto 0.02 X10*3/uL (0.00-0.03); Imm Gran Pct Auto 0.3 % (0.0-0.4); Lymphocytes Absolute Auto 1.9 X10*3/uL (1.2-4.9); Lymphocytes Percent Auto 28.9 % (20-40); Mean Corpuscular HGB Conc 33.8 g/dl (31.0-35.0); Mean Corpuscular Volume 88.6 fL (80.0-98.0); Monocytes Absolute Auto 0.5 X10*3/uL (0.1-1.2); Monocytes Percent Auto 7.6 % (2-11); Neutrophils Percent Auto 62.1 % (45-73); Platelet Count 247 X10*3/uL (160-400); Red Blood Count 4.84 X10*6/uL (4.20-5.50); Red Cell Distribution Width 11.9 % (11.0-16.0); White Blood Count 6.5 X10*3/uL (4.8-10.8)
[2023-07-28 09:38] LABS: Bacteria Urine 2+ (None Seen); Hyaline Casts Urine 0-2 /LPF (0-2); RBC Urine 0-2 /HPF (0-2); WBC Urine 21-50 /HPF (0-5)
[2023-07-28 09:54] LABS: Alanine Aminotransferase 14 U/L (0-31); Albumin Level 4.4 g/dL (3.5-5.0); Alkaline Phosphatase 43 U/L (39-117); Anion Gap 15 (12-20); Aspartate Amino Transferase 23 U/L (5-31); Bilirubin Total 1.8 mg/dL (0.0-1.0); Blood Urea Nitrogen 8 mg/dL (9-16); Calcium 9.1 mg/dL (8.4-10.2); Carbon Dioxide 25 mmol/L (22-29); Chloride 105 mmol/L (96-108); Cholesterol 185 mg/dL (<200); Estimated Glomerular Filt Rate > 60; Glucose Random 90 mg/dL (60-115); HDL Cholesterol 64 mg/dL (>40); LDL Cholesterol Calculated 103 mg/dL (<100); Potassium 4.1 mmol/L (3.3-5.1); Sodium 141 mmol/L (135-145); Total Protein 7.7 g/dL (6.5-8.0); Triglycerides 93 mg/dL (<150)
== END 2023-07-28 08:50 | disposition home or self-care (01) ==
LOC: HO.LAB 08:49
PROVIDERS: PCP Internal Medicine; Visit Provider Internal Medicine
DX: N64.89 Other specified disorders of breast (principal); R06.83 Snoring; D36.9 Benign neoplasm, unspecified site; R10.2 Pelvic and perineal pain; G47.19 Other hypersomnia
CPT/HCPCS: 36415; 80053; 80061; 81001; 85025

== ENCOUNTER 2023-08-04 14:54 | Outpatient (REF) | payer OTHER, SELFPAY ==
--- NOTE | ~2023-08-04 | MM_ITS ---
EXAMINATION: MM DIAGNOSTIC DIGITAL BREAST TOMOSYNTHESIS, LEFT CLINICAL INFORMATION: Diagnostic left mammography for follow-up focal asymmetry left breast just inferior lateral to the posterior nipple line. COMPARISON: Mammography: Screening mammography 05/17/2023, 09/27/2015, TECHNIQUE: Digital breast tomosynthesis is performed in the following views, full-field 3-D digital left mediolateral view, and 3-D spot compression left ML and left CC views. FINDINGS: There are scattered areas of fibroglandular density (ACR BI-RADS breast composition Category b). Diagnostic views demonstrate the focal asymmetry in the 6:00 axis left breast, middle one third, does not persist and is consistent with summation artifact/superimposition of normal breast tissues. There is no persistent mass, region of architectural distortion, or suspicious calcifications. No skin or axillary abnormality. MM/MM tomosynthesis diagnostic LT IMPRESSION: There are no persistent findings suspicious for malignancy left breast. Recommend the patient return to routine annual screening mammography. ASSESSMENT: BI-RADS BI-RADS 1 - Negative RECOMMENDATION: 1 year F/U Results were provided to the patient at time of visit by the technologist. This patient's information was entered into a reminder system with a target due date for their next mammogram.
== END 2023-08-04 14:55 | disposition home or self-care (01) ==
LOC: HO.MAMMO 14:54
PROVIDERS: PCP Internal Medicine; Visit Provider Internal Medicine
DX: N64.89 Other specified disorders of breast (principal)
CPT/HCPCS: 77061; 77065

== ENCOUNTER → 2023-08-04 15:00 | Outpatient (BNV) | payer OTHER, SELFPAY | PROVIDERS: PCP Internal Medicine; Visit Provider Radiology Diagnostic Radiology | DX: R92.8 Other abnormal and inconclusive findings on diagnostic imaging of breast (principal) | CPT/HCPCS: 77061; 77065 ==

== ENCOUNTER 2024-06-09 14:28 | Outpatient (AMB) | payer OTHER, SELFPAY ==
[2024-06-09 14:34] VITALS: BP 104/54; PULSE 73; BMI 26.4
--- NOTE | 2024-06-09 14:34 | A.OFFVIS_ITS ---
Vital Signs 3 06/09/24 14:34 Height 5 ft 5 in Weight 158 lb 11.725 oz BMI 26.4 BP 104/54 L Blood Pressure Location Lt brachial Position Sitting Pulse 73 Intake Visit Reasons: Dysphagia/ colonoscopy screening Intake Note: Ashley presents in office today as a new patient for colonoscopy screening. CC: Patient c/o having a lot of acid reflux and throwing up since for ever . Patient states that she needs to have colonoscopy done because her mom has colon cancer, and last time she had hers done pre cancerous polyps were found. Per patient she has diarrhea all the time. City Supervisor Required: No Accompanied by: Self / Same As Patient Allergies No Known Allergies [No Known Allergies*] Allergy (Verified 06/09/24 14:56) HPI HPI Dysphagia/ colonoscopy screening: Details: 44-YEAR-OLD FEMALE here for preprocedural meeting to discuss a screening colonoscopy and for an evaluation of dysphagia. She is referred by [facility]. PMX Migraines GERD Depression with anxiety Arthritis of the knee History of tubular adenoma? ? * SURGICAL HISTORY Appendectomy Cholecystectomy EGD/colonoscopy-[id number] EGD equal chronic gastric erosions, colonoscopy= 1 tubular adenoma with negative random biopsies * ALLERGIES: NKDA * [facility] LABS: Laboratory Tests 07/28/23 09:17 WBC 6.5 Hgb 14.5 Hct 42.9 Plt Count 247 Estimated GFR > 60 Total Bilirubin 1.8 H AST 23 ALT 14 Alkaline Phosphatase 43 TODAY'S VISIT Severe GERD and feeling of pressure and vomiting, not as much nausea. Since age 21. Also since cholecystectomy age 22ish severe multiple times a day diarrhea. Most likely bile gastritis, gerd and diarrhea. Never on cholestyramine or Carafate, also only taking pepcid prn (was unaware of the erosioins!!). Will start pantoprazole qd and she can continue pepcid as needed for breakthrough. She was educated about her past findings and that she really should be on something every day until we can discover the underlying cause. If it is in fact bile mediated gastritis and if there seems to be good healing we can consider discontinuing the pantoprazole once the cholestyramine finds up the bile. There are no prior problems with anesthesia or sedation. She denies any cardiac or respiratory problems. There are no infectious disease problems. She had a TA in 2019 and her mother had CRC age 60's. [facility] Medical History COVID-19 Migraine GERD (gastroesophageal reflux disease) Surgical History H/O esophagogastroduodenoscopy H/O colonoscopy Hx of appendectomy Hx of cholecystectomy Family History Father Diabetes Mother Colon cancer Social History Alcohol intake: never Patient Tobacco Use Status: Former Tobacco user Cigarettes Per Day: 10 Years Smoked: 12 e-Cigarette/Vaping Use: Never Used Review of Systems Const Denies fatigue, Denies fever(s), Denies night sweats, Denies poor appetite and Denies weight loss ENT Reports Normal hearing present, Denies dental pain, Denies dysphagia, Denies hearing loss, Denies mouth pain, Denies odynophagia, Denies throat swelling, Denies tongue swelling and Reports other (Dentition adequate) Card Reports no additional complaints Resp Reports no additional complaints GI Details: Reports abdominal pain, Denies melena, Denies bloating, Denies hematochezia, Denies constipation, Denies GI cramping, Denies dysphagia, Denies excessive flatus, Denies early satiety, Reports heartburn, Reports diarrhea, Reports nausea, Denies odynophagia, Reports vomiting and Denies hematemesis Skin/Breast Denies pruritus, Denies lesions, Denies rash and Denies jaundice Neuro Reports Normal hearing present and Denies Abnormal speech present Endo Denies fatigue Aller/Immun Denies throat swelling and Denies tongue swelling Physical Exam Vital Signs: Last Vital Signs Pulse 73 06/09/24 14:34 BP 104/54 L 06/09/24 14:34 BMI result Body Mass Index 26.4 Const General: cooperative, no acute distress, well developed and well groomed Nutritional Appearance: average body habitus and well nourished Orientation/consciousness: oriented to person, oriented to place and oriented to time Limitations: No language barrier HEENT Head: Yes normocephalic and Yes atraumatic Eyes General: appearance normal, both eyes and all related structures Pupils: Equal, round and reactive pupils present Neck Neck: Yes normal visual inspection and Yes no lymphadenopathy Thyroid: Thyroid normal Resp Effort & Inspection: normal respiratory effort and able to speak in complete sentences Auscultation: clear to auscultation bilaterally Cardio Rate: regular rate Rhythm: regular rhythm Heart sounds: Normal, physiologic split S2 sound present Peripheral pulses: radial pulses present and posterior tibial pulses present GI Inspection: No distended and No Abdominal panniculus present Palpation (GI): Soft to palpation, Tenderness to palpation present (GI) in the epigastrum, no guarding, not rigid and No hepatosplenomegaly present Percussion: Yes normal to percussion Auscultation: Hyperactive bowel sounds present Rectal Exam - Female: deferred Abdomen image: 2 1. surgical scars Skin General skin exam: no rashes or lesions noted, turgor normal, skin not dry, no jaundice, No spider nevi and no striae Rashes: no rashes Nails: normal Neuro General: oriented to person, oriented to place and oriented to time Cranial nerves: Yes Equal, round and reactive pupils present and Yes Normal hearing present Speech: No Abnormal speech present Extrem General: Yes normal to inspection, No clubbing, No cyanosis and No edema Psych Appearance: grossly normal and well kempt Mental Status: mental status grossly normal Speech and movement: Normal speech and movement present Affect: normal affect Attitude: cooperative Thought process: Normal thought process present and not confabulating Thought content: Normal thought content present Insight: Fair insight present (Psych) Judgement: Fair judgement present (Psych) Assessment & Plan Assessment & Plan (1) Pre-op examination: Code(s): Z01.818 - Encounter for other preprocedural examination Category: Medical (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 Since age 21. Also since cholecystectomy age 22ish severe multiple times a day diarrhea. Most likely bile gastritis, gerd and diarrhea. Never on cholestyramine or Carafate, also only taking pepcid prn (was unaware of the erosioins!!). Will start pantoprazole qd and she can continue pepcid as needed for breakthrough. She was educated about her past findings and that she really should be on something every day until we can discover the underlying cause. If it is in fact bile mediated gastritis and if there seems to be good healing we can consider discontinuing the pantoprazole once the cholestyramine finds up the bile. There are no prior problems with anesthesia or sedation. She denies any cardiac or respiratory problems. There are no infectious disease problems. She had a TA in 2019 and her mother had CRC age 60's. Orders: Orders 2 EGD/[place] Combo - GI Use Only Today D12.6 - Benign neoplasm of colon, unspecified, K25.9 - Gastric ulcer, unspecified as acute or chronic, without hemorrhage or perforation Medications: New 2 sodium,potassium,mag sulfates 17.5-3.13-1.6 gram (Suprep Bowel Prep Kit) 480 mL orally; FOR COLONOSCOPY PREP 354 mL 0RF bisacodyl (Dulcolax (bisacodyl)) 10 mg (2 x 5 mg) PO BEDTIME 4 tabs 0RF 2 days pantoprazole (Protonix) 40 mg PO DAILY 30 tabs 3RF 30 days K25.9 - Gastric ulcer, unspecified as acute or chronic, without hemorrhage or perforation cholestyramine-aspartame 4 gram no meds 1 hr before/4-6 hr after dose 4 grams PO BID 60 ea 6RF K91.5 - Postcholecystectomy syndrome, R19.7 - Diarrhea, unspecified Coding Level of Care Code New Pt Level 3 (14898) Diagnoses Pre-op examination Z01.818 Post-cholecystectomy syndrome K91.5 Gastric erosions K25.9 Tubular adenoma of colon D12.6 GERD (gastroesophageal reflux disease) K21.9 Diarrhea R19.7
== END 2024-06-09 15:44 | disposition home or self-care (01) ==
PROVIDERS: PCP Internal Medicine; Visit Provider Nurse Practitioner
DX: K21.9 Gastro-esophageal reflux disease without esophagitis (principal); R19.7 Diarrhea, unspecified; K91.5 Postcholecystectomy syndrome; Z12.11 Encounter for screening for malignant neoplasm of colon
CPT/HCPCS: 99203

== ENCOUNTER → 2024-06-09 14:28 | Outpatient (BNVA) | payer OTHER, SELFPAY | PROVIDERS: PCP Internal Medicine; Visit Provider Nurse Practitioner | DX: Z01.818 Encounter for other preprocedural examination (principal); K91.5 Postcholecystectomy syndrome; K25.9 Gastric ulcer, unspecified as acute or chronic, without hemorrhage or perforation; K21.9 Gastro-esophageal reflux disease without esophagitis; D12.6 Benign neoplasm of colon, unspecified; R19.7 Diarrhea, unspecified | CPT/HCPCS: 99202 ==

== ENCOUNTER 2024-10-19 11:58 | Outpatient (AMB) | payer OTHER, SELFPAY ==
[2024-10-19 12:03] VITALS: BP 118/50; PULSE 94; O2SAT 100; BMI 26.6
--- NOTE | 2024-10-19 12:03 | A.OFFVIS_ITS ---
Vital Signs 10/19/24 12:03 Height 5 ft 5 in Weight 160 lb BMI 26.6 BP 118/50 L Blood Pressure Location Lt brachial Position Sitting Pulse 94 Pulse Source Pulse Oximeter Pulse Oximetry (%) 100 Oxygen Delivery Method Room Air Intake Visit Reasons: Follow up dysphagia Intake Note: ESTABLISHED PATIENT for mgmt of post yuliet, dysphagia, gerd CC; C/O N+V, reflux, and IBS exacerbation. Pt has stopped cholestyramine as it was making her nauseous. Pt also reports that the PPI was not covered by insurance and the pharmacy never reached out to seek alt or PA. Pt was not contacted regarding colo/egd. Pt would like to have this CALLUM per FMHx of CRC (mother). 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 Since age 21. Also since cholecystectomy age 22ish severe multiple times a day diarrhea. Most likely bile gastritis, gerd and diarrhea. Never on cholestyramine or Carafate, also only taking pepcid prn (was unaware of the erosioins!!). Will start pantoprazole qd and she can continue pepcid as needed for breakthrough. She was educated about her past findings and that she really should be on something every day until we can discover the underlying cause. If it is in fact bile mediated gastritis and if there seems to be good healing we can consider discontinuing the pantoprazole once the cholestyramine binds up the bile. There are no prior problems with anesthesia or sedation. She denies any cardiac or respiratory problems. There are no infectious disease problems. She had a TA in 2019 and her mother had CRC age 60's. Orders: Orders EGD/[place] Combo - GI Use Only Today D12.6 - Benign neoplasm of colon, unspecified, K25.9 - Gastric ulcer, unspecified as acute or chronic, without hemorrhage or perforation Medications: New sodium,potassium,mag sulfates 17.5-3.13-1.6 gram (Suprep Bowel Prep Kit) 480 mL orally; FOR COLONOSCOPY PREP 354 mL 0RF bisacodyl (Dulcolax (bisacodyl)) 10 mg (2 x 5 mg) PO BEDTIME 4 tabs 0RF 2 days pantoprazole (Protonix) 40 mg PO DAILY 30 tabs 3RF 30 days K25.9 - Gastric ulcer, unspecified as acute or chronic, without hemorrhage or perforation cholestyramine-aspartame 4 gram no meds 1 hr before/4-6 hr after dose 4 grams PO BID 60 ea 6RF K91.5 - Postcholecystectomy syndrome, R19.7 - Diarrhea, unspecified EGD/COLONOSCOPY BIOPSY TODAYS VISIT She is currently on pantoprazole, pepecid and cholestyramine. The cholestyramine made her nauseated, and she never received the pantoprazole r/t insurance problems. She had her insurance canceled r/t lack of payments; yet she was able to show proof of payment and she is unsure if it has been re instated. She is working on this. She has not yet heard re: EGD/colonoscopy. She would like it sooner, but we have a big scheduling backlog so I will ask to put her on a cancellation list. She never received PEG, but will send Suprep instead. Her diarrhea continues. ROV 6 week. [facility] Medical History COVID-19 Migraine GERD (gastroesophageal reflux disease) Surgical History H/O esophagogastroduodenoscopy H/O colonoscopy Hx of appendectomy Hx of cholecystectomy Family History Father Diabetes Mother Colon cancer Social History Alcohol intake: never Patient Tobacco Use Status: Former Tobacco user Cigarettes Per Day: 10 Years Smoked: 12 e-Cigarette/Vaping Use: Never Used Review of Systems Const Denies fatigue, Denies fever(s), Denies night sweats, Denies poor appetite and Denies weight loss Eyes Reports requires corrective lenses ENT Reports Normal hearing present, Denies dental pain, Denies dysphagia, Denies hearing loss, Denies mouth pain, Denies odynophagia, Denies throat swelling, Denies tongue swelling and Reports other (Dentition adequate) GI Details: Denies abdominal pain, Denies melena, Denies bloating, Denies hematochezia, Denies constipation, Denies GI cramping, Denies dysphagia, Denies excessive flatus, Denies early satiety, Denies heartburn, Denies diarrhea, Denies nausea, Denies odynophagia, Denies vomiting and Denies hematemesis Skin/Breast Denies pruritus, Denies lesions, Denies rash and Denies jaundice Neuro Reports Normal hearing present and Denies Abnormal speech present Endo Denies fatigue Aller/Immun Denies throat swelling and Denies tongue swelling Physical Exam Vital Signs: Last Vital Signs Pulse 94 10/19/24 12:03 BP 118/50 L 10/19/24 12:03 Pulse Ox 100 10/19/24 12:03 Oxygen Delivery Method Room Air 10/19/24 12:03 BMI result Body Mass Index 26.6 Const General: cooperative, no acute distress, well developed and well groomed Nutritional Appearance: well nourished, obese and overweight Orientation/consciousness: oriented to person, oriented to place and oriented to time Limitations: No language barrier, ambulation with cane, ambulation with walker and wheelchair HEENT Head: Yes normocephalic and Yes atraumatic Eyes General: appearance normal, both eyes and all related structures Pupils: Equal, round and reactive pupils present Neck Neck: Yes normal visual inspection and Yes no lymphadenopathy Thyroid: Thyroid normal Resp Effort & Inspection: normal respiratory effort and able to speak in complete sentences Auscultation: clear to auscultation bilaterally Cardio Rate: regular rate Rhythm: regular rhythm Heart sounds: Normal, physiologic split S2 sound present Peripheral pulses: radial pulses present and posterior tibial pulses present GI Inspection: No distended and No Abdominal panniculus present Palpation (GI): Soft to palpation, nontender, no guarding, not rigid, No hepatosplenomegaly present and Hepatosplenomegaly present Percussion: Yes normal to percussion Auscultation: normal bowel sounds Rectal Exam - Female: deferred Skin General skin exam: no rashes or lesions noted, turgor normal, skin not dry, no jaundice, No spider nevi and no striae Rashes: no rashes Nails: normal Neuro General: oriented to person, oriented to place and oriented to time Cranial nerves: Yes Equal, round and reactive pupils present and Yes Normal hearing present Speech: No Abnormal speech present Extrem General: Yes normal to inspection, No clubbing, No cyanosis and No edema Psych Thought process: Normal thought process present and not confabulating Thought content: Normal thought content present Insight: Good insight present (Psych) Judgement: Good judgement present (Psych) Assessment & Plan Assessment & Plan (1) Post-cholecystectomy syndrome: Code(s): K91.5 - Postcholecystectomy syndrome Category: Medical (2) Gastric erosions: Code(s): K25.9 - Gastric ulcer, unspecified as acute or chronic, without hemorrhage or perforation Category: Medical (3) GERD (gastroesophageal reflux disease): Code(s): K21.9 - Gastro-esophageal reflux disease without esophagitis Category: Medical (4) Diarrhea: Code(s): R19.7 - Diarrhea, unspecified Category: Medical Plan She is currently on pantoprazole, pepecid and cholestyramine. The cholestyramine made her nauseated, and she never received the pantoprazole r/t insurance problems. She had her insurance canceled r/t lack of payments; yet she was able to show proof of payment and she is unsure if it has been re instated. She is working on this. She has not yet heard re: EGD/colonoscopy. She would like it sooner, but we have a big scheduling backlog so I will ask to put her on a cancellation list. She never received PEG, but will send Suprep instead. Her diarrhea continues. ROV 6 week. EGD/COLONOSCOPY BIOPSY Medications: New sodium,potassium,mag sulfates 17.5-3.13-1.6 gram (Suprep Bowel Prep Kit) 480 mL orally; FOR COLONOSCOPY PREP 354 mL 0RF sucralfate (Carafate) 2 grams (2 x 1 gram) PO BID 60 tabs 6RF K25.9 - Gastric ulcer, unspecified as acute or chronic, without hemorrhage or perforation, K91.5 - Postcholecystectomy syndrome, R19.7 - Diarrhea, unspecified Refilled pantoprazole 40 mg PO DAILY 90 tabs 1RF K25.9 - Gastric ulcer, unspecified as acute or chronic, without hemorrhage or perforation Coding Level of Care Code Est Pt Level 3 (53009) Diagnoses Post-cholecystectomy syndrome K91.5 Gastric erosions K25.9 GERD (gastroesophageal reflux disease) K21.9 Diarrhea R19.7
--- OUTSIDE RECORDS SUMMARY | 2024-10-19 12:58 | XMS_ITS | Clinical Summary ---
Author Organization [facility] ity Address [address] [place] [address] Care Team Providers Care Director Of Pulmonary Unit Name Role Phone Kristina Anne MD Primary Care Provider [phone] Surgical History Surgery Date Site/Laterality Comments APPENDECTOMY 2004 PROCEDURE: LA APPENDECTOMY CHOLECYSTECTOMY 2009 PROCEDURE: LAPAROSCOPY, CHOLECYSTECTOMY WISDOM TOOTH EXTRACTION Left PROCEDURE: HISTORICAL WISDOM TEETH EXTRACTION; COMMENT: only 1 removed, top left Medical History Medical History Date Comments History of chronic back pain DX: History of chronic back pain; COMMENT: takes oxycodone 5mg two tabs daily - stopped with +Hcg History of delivery 2002, 2007 DX:H istory of delivery Anxiety and depression 2004 DX:Anxiet y and depression Stomach ulcer DX:Stomach ulcer Family History Medical History Relation Name Comments Depression Brother 1 No Known Problems Brother 2 Depression Father Diabetes Father Hypertension Father Liver disease Father Lung cancer Maternal Grandmother Other: Other Maternal Grandmother Dialysi s for kidney disease Colon cancer Mother Lung cancer Paternal Grandfather COPD Sister smoker Breast cancer Neg Hx Cervical cancer Neg Hx Ovarian cancer Neg Hx Uterine cancer Neg Hx Relation Name Status Comments Brother 1 Alive Brother 2 Alive Father Maternal Grandfather Maternal Grandmother Mother Alive Paternal Grandfather Paternal Grandmother Sister Alive Social History Tobacco Use Types Packs/Day Years Used Date Smoking Tobacco: Former Cigarettes Q uit: 12/05/2017 Smokeless Tobacco: Never Alcohol Use Standard Drinks/Week Comments Yes 0 (1 standard drink = 0.6 oz pur e alcohol) Comments Unknown Sex and Gender Information Value Date Recorded Sex Assigned at Not on file Legal Sex Female 9:54 PM EST Gender Identity Not on file Sexual Orientation Not on file Obstetrics History Last Filed Vital Signs Vital Sign Reading Time Taken Comments Blood Pressure - - Pulse - - Temperature - - Respiratory Rate - - Oxygen Saturation - - Inhaled Oxygen Concentration - - Weight 61.2 kg (135 lb) 04/28/2022 1:58 PM EST Height 162.6 cm (5' 4 ) 03/20/2022 2:04 PM EDT Body Mass Index 23.17 03/20/2022 2:04 PM EDT Plan of Treatment Health Maintenance Due Date Last Done Comments Breast Cancer Screening 1982 Hepatitis B Vaccines (1 of 3 - 19+ 3-dose series) 2001 Cervical Cancer Screening: P ap Smear 2003 Depression Screening 05/09/2022 HIV Screening 05/09/2022 Hepatitis C Screening 05/09/2022 Social Influencers of Health Screening 05/09/2022 COVID-19 Vaccine ( - 2023-2 5 season) 2024 Influenza Vaccine (Season Ended) 2025 02/13/2020, 03/15/2019 DTaP,Tdap,and Td Vaccines (2 - Td or Tdap) 05/29/2030 05/29/2020 HIB Vaccines Aged Out No longer eligi ble based on patient's age to complete this topic HPV Vaccines Aged Out No longer eligi ble based on patient's age to complete this topic Hepatitis A Vaccines Aged Out No long er eligible based on patient's age to complete this topic IPV Vaccines Aged Out No longer eligi ble based on patient's age to complete this topic MMR Vaccines Aged Out No longer eligi ble based on patient's age to complete this topic Meningococcal ACWY Vaccine Aged Out N o longer eligible based on patient's age to complete this topic Meningococcal B Vaccine Aged Out No l onger eligible based on patient's age to complete this topic Pneumococcal Vaccine: Pediatrics (0 to 5 Years) and At-Risk Patients (6 to 64 Years) Aged Out No longer eligible b ased on patient's age to complete this topic RSV Immunization Patients Under 20 months Aged Out No longer eligible b ased on patient's age to complete this topic Varicella Vaccines Aged Out No longer eligible based on patient's age to complete this topic Care Teams Director Of Pulmonary Unit Relationship Specialty Start Date End Date Kristina Anne MD [address] [place], [place] PCP - General Internal Medicine 10/20/21
--- OUTSIDE RECORDS SUMMARY | 2024-10-19 12:58 | XMS_ITS | Encounter Summary ---
Author Organization [employer] Address [address] [place] [address] Care Team Providers Care Automobile Service Writer Name Role Phone Kristina Anne MD Primary Care Provider [phone] Reason for Visit * Reason Onset Date Comments Med Refill 09/29/2022 Encounter Details Date Type Department Care Team ([facility] st Contact Info) Description 09/29/2022 Telephone [facility] [address] [place] [address] Kristina Anne MD [address] [place] [address] Med Refill Social History Tobacco Use Types Packs/Day Years Used Date Smoking Tobacco: Former Cigarettes Passive Smoke Exposure: Never Smokeless Tobacco: Never Alcohol Use Standard Drinks/Week Comments Yes 0 (1 standard drink = 0.6 oz pur e alcohol) once or twice a year Depression Answer Date Recorded Patient Health Questionnaire-9 Score 2 07/10/2022 Depression Answer Date Recorded Patient Health Questionnaire-2 Score 1 07/10/2022 Comments Unknown Sex and Gender Information Value Date Recorded Sex Assigned at Female 04/06/2022 10:24 AM EDT Legal Sex Female 10:24 AM EDT Gender Identity Female 04/06/2022 10:24 AM EDT Sexual Orientation Straight 04/06/2022 10 :24 AM EDT COVID-19 Exposure Response Date Recorded In the last 10 days, have yo u been in contact with someone who was confirmed or suspected to have Coronavirus/COVID-19? No / Unsure 09/11/2022 10:50 AM EDT documented as of this encounter Miscellaneous Notes * Telephone Encounter - Fredy Camargo - 09/29/2022 10:16 AM EDT Tc from pt requesting med refill Oxycodone 5 mg documented in this encounter Plan of Treatment Upcoming Encounters Date Type Department Care Team (Late st Contact Info) Description 11/01/2024 9:00 AM EDT Clinical Support [facility] [address] [place] [address] Alayna Ambrosio, KARLI [address] [place] [address] 11/29/2024 10:00 AM EDT Office Visit [facility] [address] [place] [address] Kristina Anne MD [address] [place] [address] documented as of this encounter Visit Diagnoses Not on filedocumented in this encounter Additional Health Concerns Assessment Noted Time PHQ-9 Depression Total Score: 2 07/10/19 23 11:06 AM EST documented as of this encounter Care Teams Automobile Service Writer Relationship Specialty Start Date End Date Kristina Anne MD [address] [place] [address] PCP - General Internal Medicine 06/26/15 documented as of this encounter
--- OUTSIDE RECORDS SUMMARY | 2024-10-19 12:59 | XMS_ITS | Clinical Summary ---
Author Organization [employer] Address [address] [facility] 7t [place] [address] Care Team Providers Care Flight Security Specialist Name Role Phone Kristina Anne MD Primary Care Provider Allergies No known active allergies Medications valACYclovir (Valtrex) 500 MG tablet Take 1 tablet by mouth in the morning. 11/18/19 22 Active traZODone (Desyrel) 50 MG tablet TAKE 1 TABLET BY MOUTH EVERY DAY AT BEDTIME AFTER MEAL 09/29/19 22 Active omeprazole (PriLOSEC) [address] capsule Take 20 mg by mouth. 11/26/19 22 Active naloxone (Narcan) 4 mg/0.1 mL nasal spray Administer 0.1 mL into affected nostril(s). 09/07/19 21 Active lidocaine (Lidoderm) 5 % patch Place 1 patch on the skin at bed time. 03/31/20 19 Active hydrOXYzine HCl (Atarax) 25 MG tablet Take 50 mg by mouth. 08/27/19 22 Active famotidine (Pepcid) 20 MG tablet Take 20 mg by mouth. 04/14/20 20 Active etonogestrel-e thinyl estradiol (Nuvaring) 0.12-0.015 MG/24HR vaginal ring Insert 1 each into the vagina. Active Docusate Sodium (DSS) 100 MG capsule Take 1 capsule by mouth 2 times daily. 03/11/20 22 Active acetaminophen (Tylenol) 325 MG tablet Take 650 mg by mouth every 6 (six) hours if needed. Active cyclobenzaprin e (Flexeril) 10 MG tabletIndicati ons:Acute right-sided low back pain with right-sided sciatica Take 1 tablet (10 mg) by mouth 3 times daily for 10 days. 30 tablet 07/10/19 23 Active metoclopramide (Reglan) 10 MG tablet Take 1 tablet (10 mg) by mouth 4 times daily for 5 days. 20 tablet 03/19/20 23 Active topiramate (Topamax) 25 MG tabletIndicati ons:Intractabl e headache, unspecified chronicity pattern, unspecified headache type Take 1 tablet (25 mg) by mouth every 12 (twelve) hours. 60 tablet 11 08/16/19 24 Active gabapentin (Neurontin) 100 MG capsuleIndicat ions:Chronic bilateral low back pain with bilateral sciatica TAKE 1 TO 2 CAPSULES BY MOUTH AT BEDTIME 60 capsule 08/01/19 25 Active FLUoxetine (PROzac) 40 MG capsuleIndicat ions:Depressiv e disorder Take 1 capsule (40 mg) by mouth Once per day. 90 capsule 2 08/18/19 25 Active oxyCODONE-acet aminophen (Percocet) 5-325 MG tabletIndicati ons:Chronic pain syndrome Take 1 tablet by mouth if needed in the morning and at bedtime for moderate pain for up to 14 days. 28 tablet 10/13/19 25 025 Active SUMAtriptan (Imitrex) 100 MG tablet Take 1 tablet (100 mg) by mouth 1 (one) time if needed for migraine. 9 tablet 10/13/19 25 Active SUMAtriptan (Imitrex) 100 MG tablet Take 1 tablet (100 mg) by mouth 1 (one) time if needed for migraine. 9 tablet 01/25/20 24 025 Discontinued(Re order (will not trigger notification to Pharmacy)) oxyCODONE-acet aminophen (Percocet) 5-325 MG tabletIndicati ons:Chronic pain syndrome Take 1 tablet by mouth if needed in the morning and at bedtime for moderate pain for up to 14 days. 28 tablet 09/13/19 25 025 Discontinued(Re order (will not trigger notification to Pharmacy)) oxyCODONE-acet aminophen (Percocet) 5-325 MG tabletIndicati ons:Chronic pain syndrome Take 1 tablet by mouth if needed in the morning and at bedtime for moderate pain for up to 14 days. 28 tablet 09/27/19 25 025 Discontinued(Re order (will not trigger notification to Pharmacy)) Active Problems Problem Noted Date Diagnosed Date Long-term current use of opiate analgesic 2024 Intractable headache 03/19/2023 Assessment & Plan (03/19/2023 11:18 AM EDT): -Patient with concerns of intractable headaches will be prescribed Reglan and Imitrex to treat pain. -Advised patient to visit ED if symptoms persist or exacerbate. Acute right-sided low back pain with right-sided sciatica 07/13/2022 Assessment & Plan (07/13/2022 5:53 PM EST): Acute on chronic LBP, concern of displacement of hardware with her falls, send STAT imaging. Will send flexeril. She does have problems with ambulation on examination. She never actually got PT after surgery will benefit of assessment and treatment, referral placed. Chronic low back pain 06/24/2022 Degeneration of lumbar intervertebral disc 02/17 Fatigue 11/12/2017 Generalized abdominal pain 09/28/2016 Migraine 10/26/2014 Depressive disorder 09/04/2014 Diarrhea 09/04/2014 Gastroesophageal reflux disease 09/04/2014 Sinusitis 09/04/2014 Anxiety 09/04/2014 Encounters Date Type Department Care Team Description 10/12/2024 Telephone [facility] [address] [place] [address] Alayna Ambrosio, RN business banking sales assistant 10/11/2024 Refill [facility] PEDS [address] [place] [address] Kristina Anne MD 10/10/2024 Refill [facility] [address] [place] [address] Kristina Anne MD Chronic pain syndrome 09/26/2024 Refill [facility] [address] [place] [address] Kristina Anne MD Chronic pain syndrome 09/12/2024 Refill [facility] [address] [place] [address] Kristina Anne MD Chronic pain syndrome 08/29/2024 Refill [facility] [address] [place] [address] Kristina Anne MD Chronic pain syndrome 08/17/2024 9:30 AM EDT Clinical Support [facility] [address] [place] [address] Alayna Ambrosio RN Long-term current use of opiate analgesic; Chronic low back pain, unspecified back pain laterality, unspecified whether sciatica present 08/17/2024 Travel 08/16/2024 Travel 08/14/2024 Refill [facility] [address] [place] [address] Kristina Anne MD Depressive disorder; Chronic pain syndrome 08/07/2024 Travel 08/07/2024 Telephone [facility] [address] [place] [address] Alayna Ambrosio, RN business banking sales assistant 08/04/2024 Telephone [facility] MEDICINE [address] [place] [address] Kristina Anne MD Appointment Request 07/31/2024 Refill [facility] [address] [place] [address] Kristina Anne MD Chronic bilateral low back pain with bilateral sciatica; Chronic pain syndrome from Last 3 Months Immunizations Immunization Administration Dates Next Due Influenza Injectable Quadriv alant Preservative Free IIV4 MDCK 02/13/2020 Influenza injectable quadrivalent preservative f ree 03/15/2019 Tdap 05/29/2020 Social History Tobacco Use Types Packs/Day Years Used Date Smoking Tobacco: Former Cigarettes Passive Smoke Exposure: Never Smokeless Tobacco: Never Tobacco Cessation:Counseling Given: Not Answered Alcohol Use Standard Drinks/Week Comments Yes 0 [...] Orientation Straight 04/06/2022 10 :24 AM EDT Last Filed Vital Signs Vital Sign Reading Time Taken Comments Blood Pressure 108/70 07/18/2024 6:17 PM EST Pulse 103 07/18/2024 6:17 PM EST Temperature 36.8 ??C (98.2 ??F) 07/18/2024 6:17 PM ES T Respiratory Rate 18 07/18/2024 6:17 PM EST Oxygen Saturation 98% 07/18/2024 6:17 PM EST Inhaled Oxygen Concentration - - Weight 67.2 kg (148 lb 2 oz) 07/18/2024 6:17 PM EST Height 162.6 cm (5' 4 ) 07/18/2024 6:17 PM EST Body Mass Index 25.43 07/18/2024 6:17 PM EST Plan of Treatment Upcoming Encounters Date Type Department Care Team (Late st Contact Info) Description 11/01/2024 9:00 AM EDT Clinical Support [facility] [address] [place] [address] Alayna Ambrosio, KARLI [address] [place] [address] 11/29/2024 10:00 AM EDT Office Visit [facility] [address] [place] [address] Kristina Anne MD [address] [place] [address] Health Maintenance Due Date Last Done Comments HIV Screening 1982 SDOH Screening 1982 Alcohol/Substance Use Screening 1994 Family Planning (PISQ) 1997 Hepatitis C Screening 2000 Hepatitis B Vaccines (1 of 3 - 19+ 3-dose series) 2001 Pap Smear 2003 Cervical Cancer Screening 04/05/2023 HPV/Cotest 04/05/2023 04/05/2018 Depression Screening 07/10/2023 07/10/2022, 07/10/2022 COVID-19 Vaccine (1 - 2023-2 5 season) 2024 Influenza Vaccine (#1) 2024 0, 03/15/2019 Tobacco Screening 07/27/2024 07/27/2023 Mammogram 08/04/2025 08/04/2023, 05/17/2023 DTaP/Tdap/Td Vaccines (2 - T d or Tdap) 05/29/2030 05/29/2020 Zoster Vaccines (1 of 2) 2032 RSV Patients and Patients Aged 60 years or older (1 - 1-dose 75+ series) 2057 HIB Vaccines Aged Out No longer eligi [...] patient's age to complete this topic Meningococcal Vaccine Aged Out No lesly jhoana eligible based on patient's age to complete this topic Pneumococcal Vaccine: Pediatrics (0 to 5 Years) and At-Risk Patients (6 to 49) Years) Aged Out No longer eligible b ased on patient's age to complete this topic RSV under 20 months Aged Out No longe r eligible based on patient's age to complete this topic Rotavirus Vaccines Aged Out No longer eligible based on patient's age to complete this topic Procedures Procedure Name Priority Date/Time Associated Diagnosis Comments POCT PK-14 URINE DRUG SCREEN Routine 08/17/2024 9:12 AM EDT Long-term current use of opiate analgesic Chronic low back pain, unspecified back pain laterality, unspecified whether sciatica present BI MAMMOGRAM DIAGNOSTIC TOMOSYNTHESIS LEFT Routine 08/04/2023 3:30 PM EST ZZZ HISTORICAL HPV MRNA E6/E7 Routine 04/05/2018 4:37 PM EDT from Last 3 Months or Most Recently Relevant to Health Maintenance Results * POCT PK-14 Urine Drug Screen (08/17/2024 9:12 AM EDT) Urine Urine specimen obtained by clean catch procedure / Unknown 08/17/2024 9:12 AM EDT Narrative Alayna Ambrosio RN - 08/17/2024 9:12 AM EDT negative AMP, BAR, BUP, BZO, BLAKE, FTY, MDMA, MET, MOP, MTD, OXY, PCP, TCA, THC. Lot# [id number] Exp: 01-24-26 us Kristina Anne MD POINT OF CARE TEST ENTER/ED IT ORDERABLES Final Result * BI Mammogram Diagnostic Tomosynthesis Left (08/04/2023 3:30 PM EST) Anatomical Region Laterality Modality Breast Left Mammography 08/04/2023 3:30 PM EST Narrative 08/18/2023 9:48 AM EDT ? [facility] ? [address] ?[place] [address] ? Mammography Report ? Signed ? Patient: Nic,Ashley ?MR#: [id number] ?? [id number] ? : 1980 ?Acct:[id number] ? Age/Sex: 43 / F ?ADM Date: 08/04/24 ? Loc: HO.MAMMO ? Attending Dr: Kristina Anne MD ? Ordering Physician: Kristina Anne MD ?Results: 1 ?? Negative ? Date of Service: 08/04/24 ?Follow Up: 1 Year From Orig ?? inal Mammogram ? Procedure(s): MM tomosynthesis diagnostic LT ?? Accession Number(s): [id number] ? cc: Kristina Anne MD ? EXAMINATION: ?? MM DIAGNOSTIC DIGITAL BREAST TOMOSYNTHESIS, LEFT ? CLINICAL INFORMATION: ? Diagnostic left mammography for follow-up focal asymmetry left breast ?? just inferior lateral to the posterior nipple line. ? COMPARISON: ?? Mammography: Screening mammography 05/17/2023, 09/27/2015, ? TECHNIQUE: ?? Digital breast tomosynthesis is performed in the following views, ?? full-field 3-D digital left mediolateral view, and 3-D spot compression ?? left ML and left CC views. ? FINDINGS: ?? There are scattered areas of fibroglandular density (ACR BI-RADS breast ?? composition Category b). ? Diagnostic views demonstrate the focal asymmetry in the 6:00 axis left ?? breast, middle one third, does not persist and is consistent with ?? summation artifact/superimposition of normal breast tissues. There is ?? no persistent mass, region of architectural distortion, or suspicious ?? calcifications. No skin or axillary abnormality. ? MM/MM tomosynthesis diagnostic LT ?? IMPRESSION: ?? There are no persistent findings suspicious for malignancy left breast. ? Recommend the patient return to routine annual screening mammography. ? ASSESSMENT: ? BI-RADS BI-RADS 1 - Negative ? RECOMMENDATION: ?? 1 year F/U ? Results were provided to the patient at time of visit by the ?? technologist. ? This patient's information was entered into a reminder system with a ?? target due date for their next mammogram. ? Dictated By: ?Yeison Smith MD ? Signed By: ?<Electronically signed by Yeison Smith MD in OV> ?08/18/23 09 ? DD/ 29 ? TD/TT: ? Parking Ramp Attendant: ? Procedure Note Trista, Image - 08/18/2023 [facility] [address] [place], [place] [address] Mammography Report Signed Patient: Ashley LuceroMR#: [id number] : 1980Acct:[id number] Age/Sex: 43 / FADM Date: 08/04/23 Loc: HO.MAMMO Attending Dr: Kristina Anne MD Ordering Physician: Kristina Anne MDResults: 1 Negative Date of Service: 08/04/23Follow Up: 1 Year From Orig ina Mammogram Procedure(s): MM tomosynthesis diagnostic LT Accession Number(s): [id number] cc: Kristina Anne MD EXAMINATION: MM DIAGNOSTIC DIGITAL BREAST TOMOSYNTHESIS, LEFT CLINICAL INFORMATION: Diagnostic left mammography for follow-up focal asymmetry left breast just inferior lateral to the posterior nipple line. COMPARISON: Mammography: Screening mammography 05/17/2023, 09/27/2015, TECHNIQUE: Digital breast tomosynthesis is performed in the following views, full-field 3-D digital left mediolateral view, and 3-D spot compression left ML and left CC views. FINDINGS: There are scattered areas of fibroglandular density (ACR BI-RADS breast composition Category b). Diagnostic views demonstrate the focal asymmetry in the 6:00 axis left breast, middle one third, does not persist and is consistent with summation artifact/superimposition of normal breast tissues. There is no persistent mass, region of architectural distortion, or suspicious calcifications. No skin or axillary abnormality. MM/MM tomosynthesis diagnostic LT IMPRESSION: There are no persistent findings suspicious for malignancy left breast. Recommend the patient return to routine annual screening mammography. ASSESSMENT: BI-RADS BI-RADS 1 - Negative RECOMMENDATION: 1 year F/U Results were provided to the patient at time of visit by the technologist. This patient's information was entered into a reminder system with a target due date for their next mammogram. Dictated By: Yeison Smith MD Signed By: <Electronically signed by Yeison Smith MD in OV> 08/18/23 0944 DD/ 1530 TD/TT: Parking Ramp Attendant: us Thevenin Beauzile MD IMG BI PROCEDURES Final Res ult * HPV mRNA E6/E7 (04/05/2018 4:37 PM EDT) HPV mRNA E6/E7 Not Detected NOT DETECTED [facility] Comment: This test was performed using the APTIMA(R) HPV Assay ([employer] This assay detects E6/E7 viral messenger RNA (mRNA) from 14 high-risk HPV types (16,18,31,33,35,39,45,51, 52,56,58,59,66,68). For additional information please refer to: http://education.[employer]/faq/EYM819r4 (This link is being provided for informational/ educational purposes only.) The analytical performance characteristics of this assay have been determined by [employer] [place], [place]. The modifications have not been cleared or approved by the FDA. This assay has been validated pursuant to the CLIA regulations and is used for clinical purposes. Test Performed by [employer] [facility], [address] [place] [address] Marcus Farmer M.D., Ph.D., Director of Laboratories , CLIA [id number] Please note: ??Effective 02/17/2016, HPV testing will be performed using [employer]'s APTIMA test which targets mRNA. Detecting mRNA instead of DNA, as in older methods, offers significant improvements in specificity. 04/05/2018 4:37 PM EDT us Gely Feliciano CNM HISTORICAL/NON ORDERABLE LABS Final Result [facility] [address] from Last 3 Months or Most Recently Relevant to Health Maintenance Insurance [employer] Care Teams Flight Security Specialist Relationship Specialty Start Date End Date Kristina Anne MD [address] [place] [id number] PCP - General Internal Medicine 06/26/15
--- OUTSIDE RECORDS SUMMARY | 2024-10-19 12:59 | XMS_ITS | Encounter Summary ---
Author Organization [employer] Address [address] [address] Care Team Providers Care Senior Hr Manager Name Role Phone Kristina Anne MD Primary Care Provider [phone]- [phone] Reason for Visit * Reason Onset Date Comments Med Refill 12/07/2023 Encounter Details Date Type Department Care Team (Late st Contact Info) Description 12/07/2023 Telephone [facility] MED[facility] [address] [place] [address] Kristina Anne MD [address] [place] [address] Med Refill Social History Tobacco Use Types [...] Orientation Straight 04/06/2022 10 :24 AM EDT documented as of this encounter Miscellaneous Notes * Telephone Encounter - Willy Golden - 12/07/2023 1:09 PM EDT TC from pt requesting medication refill. Medications needing refill: oxyCODONE-acetaminophen (Percocet) 5-325 MG tablet To be sent to: [facility]/pharmacy #[id number] [place] - [address] [facility] documented in this encounter Plan of Treatment Upcoming Encounters Date Type Department Care Team ([facility] st Contact Info) Description 11/01/2024 9:00 AM EDT Clinical Support [facility] [address] [place] [address] Alayna Ambrosio, RN [address] [place] [address] 11/29/2024 10:00 AM EDT Office Visit [facility] [address] [place] [address] Kristina Anne MD [address] [place] [address] documented as of this encounter Visit Diagnoses Not on filedocumented in this encounter Additional Health Concerns Assessment Noted Time PHQ-9 Depression Total Score: 2 07/10/19 23 11:06 AM EST documented as of this encounter Care Teams Senior Hr Manager Relationship Specialty Start Date End Date Kristina Anne MD [address] [place] [address] PCP - General Internal Medicine 06/26/15 documented as of this encounter
--- OUTSIDE RECORDS SUMMARY | 2024-10-19 12:59 | XMS_ITS | Encounter Summary ---
Author Organization [employer] Address [address] [place] [address] [address] [place] [address] Care Team Providers Care Core Cutter Name Role Phone Kristina Anne MD Primary Care Provider [phone]- [phone] Reason for Referral * Consultation (Routine) - Closed Specialty Diagnoses / Procedures Referred By Contac t Referred To Contact Gastroenterology Diagnoses Encounter for screening colonoscopy Kristina Anne MD [address] [place] [address] Phone: tel: fax: Perri Gregorio MD [address] [place] [address] Phone: tel: fax: Referral ID Status Reason Start Date Expiration Date V isits Requested Visits Authorized [id number] Closed Specialty Services Required 12/20/2023 12/19/2024 1 1 Encounter Details Date Type Department Care Team (Late st Contact Info) Description 12/20/2023 Orders Only [facility] & PEDS [address] [place], [place] [phone] Kristina Anne MD [address] [place] [address] Encounter for screening colonoscopy (Primary Dx) Social History Tobacco Use Types Packs/Day Years [...] AM EDT documented as of this encounter Plan of Treatment Upcoming Encounters Date Type Department Care Team (Late st Contact Info) Description 11/01/2024 9:00 AM EDT Clinical Support [facility] MED [facility] PEDS [address] [place] [address] Alayna Ambrosio RN [address] [place] [address] 11/29/2024 10:00 AM EDT Office Visit [facility] PED[facility] [address] [place] [address] Kristina Anne MD [address] [place] [address] Scheduled Referrals Name Type Priority Associated Diagnoses Order Schedule Referral to Gastroenterology Outpatient Referral Routine Encounter for screening colonoscopy Expected: 12/20/2023 (Approximate), Expires: 12/19/2024 documented as of this encounter Visit Diagnoses Diagnosis Encounter for screening colonoscopy- Primary documented in this encounter Additional Health Concerns Assessment Noted Time PHQ-9 Depression Total Score: 2 07/10/19 23 11:06 AM EST documented as of this encounter Care Teams Core Cutter Relationship Specialty Start Date End Date Kristina Anne MD [address] [place] [address] PCP - General Internal Medicine 06/26/15 documented as of this encounter
--- OUTSIDE RECORDS SUMMARY | 2024-10-19 12:59 | XMS_ITS | Encounter Summary ---
Author Organization [employer] Address [address] [facility] 7 [place] [address] Care Team Providers Care Solutions Market Consultant Name Role Phone Kristina Anne MD Primary Care Provider Reason for Visit * Reason Onset Date Comments Med Refill 04/24/2024 Encounter Details Date Type Department Care Team (Late Contact Info) Description 04/24/2024 Refill [facility] MEDIC[facility] [address] [place] [address] Kristina Anne MD [address] [place] [address] Chronic bilateral low back pain with bilateral sciatica Social History Tobacco Use Types Packs/Day Years [...] Encounters Date Type Department Care Team (Late Contact Info) Description 11/01/2024 9:00 AM EDT Clinical Support [facility] [address] [place] [address] Alayna Ambrosio, RN [address] [place] [address] 11/29/2024 10:00 AM EDT Office Visit [facility] [address] [place] [address] Kristina Anne MD [address] [place] [address] documented as of this encounter Visit Diagnoses Diagnosis Chronic bilateral low back pain with bilateral sciatica documented in this encounter Additional Health Concerns Assessment Noted Time PHQ-9 Depression Total Score: 2 07/10/19 23 11:06 AM EST documented as of this encounter Care Teams Solutions Market Consultant Relationship Specialty Start Date End Date Kristina Anne MD [address] [place] [address] PCP - General Internal Medicine 06/26/15 documented as of this encounter
--- OUTSIDE RECORDS SUMMARY | 2024-10-19 12:59 | XMS_ITS | Encounter Summary ---
Author Organization [employer] Address [address] [place] [address] [place] [address] Care Team Providers Care Head Tennis Coach Name Role Phone Kristina Anne MD Primary Care Provider [phone]- [phone] Reason for Visit * Reason Comments Med Refill Encounter Details Date Type Department Care Team ([facility] Contact Info) Description 07/04/2024 Refill [facility] MED [facility] PEDS [address] [place] [address] Kristina Anne MD [address] [place] [address] Social History Tobacco Use Types Packs/Day Years [...] Upcoming Encounters Date Type Department Care Team ([facility] Contact Info) Description 11/01/2024 9:00 AM EDT Clinical Support [facility] MED [facility] PED[facility] [address] [place] [address] Alayna Ambrosio, RN [address] [place] [address] 11/29/2024 10:00 AM EDT Office Visit [facility] MED [facility] PEDS [address] [place] [address] Kristina Anne MD [address] [place] [address] documented as of this encounter Visit Diagnoses Not on filedocumented in this encounter Additional Health Concerns Assessment Noted Time PHQ-9 Depression Total Score: 2 07/10/19 23 11:06 AM EST documented as of this encounter Care Teams Head Tennis Coach Relationship Specialty Start Date End Date Kristina Anne MD [address] [place] [address] PCP - General Internal Medicine 06/26/15 documented as of this encounter
--- OUTSIDE RECORDS SUMMARY | 2024-10-19 12:59 | XMS_ITS | Encounter Summary ---
Author Organization [employer] Address [address] [place] [address] Care Team Providers Care Computer Video Game Designer Name Role Phone Kristina Anne MD Primary Care Provider +1- [phone] Reason for Visit * Reason Onset Date Comments Med Refill 06/08/2023 Encounter Details Date Type Department Care Team ([facility] st Contact Info) Description 06/08/2023 Telephone [facility] MEDICINE [address] [place] [address] Kristina Anne MD [address] [place] [address] Med Refill Social History Tobacco Use Types [...] encounter Miscellaneous Notes * Telephone Encounter - Juan Perez - 06/08/2023 8:10 AM EST TC from pt requesting medication refill. Medications needing refill : gabapentin (Neurontin) 100 MG capsule To be sent to: [id number] - [place] - [address] [facility] documented in this encounter Plan of Treatment Upcoming Encounters Date Type Department Care Team (Late st Contact Info) Description 11/01/2024 9:00 AM EDT Clinical Support [facility] MED & PEDS [address] [place] [address] Alayna Ambrosio, KARLI 505 [place] [address] 11/29/2024 10:00 AM EDT Office Visit [facility] MED & PEDS [address] [place] [address] Kristina Anne MD [address] [place] [address] documented as of this encounter Visit Diagnoses Not on filedocumented in this encounter Additional Health Concerns Assessment Noted Time PHQ-9 Depression Total Score: 2 07/10/19 23 11:06 AM EST documented as of this encounter Care Teams Computer Video Game Designer Relationship Specialty Start Date End Date Kristina Anne MD [address] [place] [address] PCP - General Internal Medicine 06/26/15 documented as of this encounter
--- OUTSIDE RECORDS SUMMARY | 2024-10-19 12:59 | XMS_ITS | Encounter Summary ---
Author Organization [employer] Address [address] [address] Care Team Providers Care Stream Control Officer Name Role Phone Kristina Anne MD Primary Care Provider +1- [phone] Reason for Visit * Reason Onset Date Comments Appointment Request 08/04/2024 Encounter Details Date Type Department Care Team ([facility] st Contact Info) Description 08/04/[address] [facility] MEDICINE [address] [place] [address] Kristina Anne MD [address] [place] [address] Appointment Request Social History Tobacco Use Types Packs/Day Years [...] encounter Miscellaneous Notes * Telephone Encounter - Ancelmo Ariasnandez - 08/04/2024 2:25 PM EST Tc from pt requesting a call back from Alayna regarding Appt Next on 08/09/24. Contact pt at [phone] documented in this encounter Plan of Treatment Upcoming Encounters Date Type Department Care Team ([facility] st Contact Info) Description 11/01/2024 9:00 AM EDT Clinical Support [facility] MED & PEDS [address] [place] [address] Alayna Ambrosio RN [address] [place] [address] 11/29/2024 10:00 AM EDT Office Visit [facility] MED & PEDS [address] [place] [address] Kristina Anne MD [address] [place] [address] documented as of this encounter Visit Diagnoses Not on filedocumented in this encounter Additional Health Concerns Assessment Noted Time PHQ-9 Depression Total Score: 2 07/10/19 23 11:06 AM EST documented as of this encounter Care Teams Stream Control Officer Relationship Specialty Start Date End Date Kristina Anne MD [address] [place] [address] PCP - General Internal Medicine 06/26/15 documented as of this encounter
--- OUTSIDE RECORDS SUMMARY | 2024-10-19 12:59 | XMS_ITS | Encounter Summary ---
Author Organization [employer] Address [address] [place] [address] [facility] [place] [address] Care Team Providers Care Internal Investigator Name Role Phone Kristina Anne MD Primary Care Provider +1- [phone] Encounter Details Date Type Department Care Team ([facility] Contact Info) Description 03/29/2024 Orders Only [facility] MED & PEDS [address] [place] [address] Kristina Anne MD [address] [place] [address] Chronic pain syndrome Social History Tobacco Use Types Packs/Day Years [...] Upcoming Encounters Date Type Department Care Team ([facility] Contact Info) Description 11/01/2024 9:00 AM EDT Clinical Support [facility] MED & PEDS [address] [place], [place] [id number] Alayna Ambrosio, RN 505 [place] [address] 11/29/2024 10:00 AM EDT Office Visit [facility] MED & PEDS [address] [place] [address] Kristina Anne MD [address] [place] [address] documented as of this encounter Visit Diagnoses Diagnosis Chronic pain syndrome documented in this encounter Additional Health Concerns Assessment Noted Time PHQ-9 Depression Total Score: 2 07/10/19 23 11:06 AM EST documented as of this encounter Care Teams Internal Investigator Relationship Specialty Start Date End Date Kristina Anne MD [address] [place] [address] PCP - General Internal Medicine 06/26/15 documented as of this encounter
--- OUTSIDE RECORDS SUMMARY | 2024-10-19 12:59 | XMS_ITS | Encounter Summary ---
Author Organization [employer] Address [address] [place] [address] Care Team Providers Care Water Pump Installer Name Role Phone Kristina Anne MD Primary Care Provider +1- [phone] Reason for Visit * Reason Onset Date Comments Call Back Request 02/16/2024 Encounter Details Date Type Department Care Team ([facility] st Contact Info) Description 02/16/2024 Telephone [facility] MEDICINE [address] [place] [address] Kristina Anne MD [address] [place] [address] Call Back Request Social History Tobacco Use Types Packs/Day [...] * Telephone Encounter - Juan Perez - 02/16/2024 12:29 PM EDT Tc from patient calling to request a call back in regards to the medication oxyCODONE-acetaminophen(Percocet) 5-325 MG tablet states is having issues with insurance and is willing to pay juarez documented in this encounter Plan of Treatment Upcoming Encounters Date Type Department Care Team ([facility] st Contact Info) Description 11/01/2024 9:00 AM EDT Clinical Support [facility] MED & PEDS [address] [place] [address] Alayna Ambrosio, KARLI [address] [place] [address] 11/29/2024 10:00 AM EDT Office Visit [facility] MED & PEDS [address] [place] [address] Kristina Anne MD [address] [place] [address] documented as of this encounter Visit Diagnoses Not on filedocumented in this encounter Additional Health Concerns Assessment Noted Time PHQ-9 Depression Total Score: 2 07/10/19 23 11:06 AM EST documented as of this encounter Care Teams Water Pump Installer Relationship Specialty Start Date End Date Kristina Anne MD [address] [place] [address] PCP - General Internal Medicine 06/26/15 documented as of this encounter
--- OUTSIDE RECORDS SUMMARY | 2024-10-19 12:59 | XMS_ITS | Clinical Summary ---
Author Organization [facility], Address [address] [address] Phone Care Team Providers Care Clinical Pharmacologist Name Role Phone Unavailable Primary Care Provider Unavailabl e Allergies No known active allergies Medications acetaminophen (TYLENOL) 325 MG tablet Take 650 mg by mouth every 6 (six) hours if needed for mild pain Active famotidine (PEPCID) 20 MG tablet Take 20 mg by mouth in the morning and 20 mg in the evening. Active FLUoxetine (PROzac) 40 MG capsule Take 40 mg by mouth 1 (one) time each day Active gabapentin (NEURONTIN) 100 MG capsule Take 200 mg by mouth every night Active hydrOXYzine (ATARAX) 25 MG tablet Take 50 mg by mouth every night Active omeprazole (PriLOSEC) [address] capsule Take 20 mg by mouth 1 (one) time each day Do not crush or chew. Active oxyCODONE-acetami nophen (PERCOCET) 5-325 MG per tablet Take 1 tablet by mouth every 12 (twelve) hours if needed for moderate pain Active Vit-Fe Fumarate-FA (PX MULTIVITAMINS PO) Take by mouth Active traZODone (DESYREL) 50 MG tablet Take 50 mg by mouth every night Active valACYclovir (VALTREX) 500 MG tablet Take 500 mg by mouth 1 (one) time each day Active etonogestrel-ethi nyl estradiol (NUVARING) 0.12-0.015 MG/24HR vaginal ring Insert 1 each into the vagina every 28 (twenty-eight) days Insert vaginally and leave in place for 3 consecutive weeks, then remove for 1 week. Active acyclovir (ZOVIRAX) 5 % ointment APPLY TO THE AFFECTED AREA(S) EVERY THREE HOURS 2 Active Active Problems Problem Noted Date Diagnosed Date Degeneration of lumbar intervertebral disc 02/17 Social History Tobacco Use Types Packs/Day Years Used Date Smoking Tobacco: Former Cigarettes Q uit: 2018 Smokeless Tobacco: Never Tobacco Cessation:Counseling Given: Not Answered Alcohol Use Standard Drinks/Week Comments Yes 0 (1 standard drink = 0.6 oz pur e alcohol) socially Comments Unknown Sex and Gender Information Value Date Recorded Sex Assigned at Not on file Legal Sex Female 2:50 PM EDT Gender Identity Not on file Sexual Orientation Not on file Last Filed Vital Signs Vital Sign Reading Time Taken Comments Blood Pressure 98/61 02/24/2022 11:47 AM EDT Pulse 61 02/24/2022 11:47 AM EDT Temperature 36.4 ??C (97.5 ??F) 02/24/2022 11:47 AM E DT Respiratory Rate - - Oxygen Saturation 100% 02/24/2022 11:47 AM EDT Inhaled Oxygen Concentration - - Weight 61.2 kg (135 lb) 02/24/2022 11:47 AM EDT Height 162.6 cm (5' 4 ) 02/24/2022 11:47 AM EDT Body Mass Index 23.17 02/24/2022 11:47 AM EDT Plan of Treatment Health Maintenance Due Date Last Done Comments Hepatitis B Vaccine (1 of 3 - 19+ 3-dose series) 2001 Influenza Vaccine (Season Ended) 2025 Pneumococcal Vaccine: Peds ( 0 to 5 Years) and At-Risk Patients (6 to 49 Years) Aged Out No longer eligible b ased on patient's age to complete this topic Insurance Medicaid [place]
--- OUTSIDE RECORDS SUMMARY | 2024-10-19 12:59 | XMS_ITS | Encounter Summary ---
Author Organization [employer] Address [address] [address] Care Team Providers Care Board Machine Set Up Operator Name Role Phone Kristina Anne MD Primary Care Provider +1- [phone] Reason for Visit * Reason Onset Date Comments Med Refill 07/05/2023 Encounter Details Date Type Department Care Team ([facility] Contact Info) Description 07/05/2023 Refill [facility] MEDICINE [address] [place] [address] Kristina Anne MD [address] [place] [address] Chronic pain syndrome Social History Tobacco Use [...] Upcoming Encounters Date Type Department Care Team ([facility] Contact Info) Description 11/01/2024 9:00 AM EDT Clinical Support [facility] MED & PEDS [address] [place] [address] Alayna Ambrosio, RN [address] [place] [address] 11/29/2024 10:00 AM EDT Office Visit [facility] MED & PEDS [address] [place] [address] Kristina Anne MD [address] [place] [address] documented as of this encounter Visit Diagnoses Diagnosis Chronic pain syndrome documented in this encounter Additional Health Concerns Assessment Noted Time PHQ-9 Depression Total Score: 2 07/10/19 23 11:06 AM EST documented as of this encounter Care Teams Board Machine Set Up Operator Relationship Specialty Start Date End Date Kristina Anne MD [address] [place] [address] PCP - General Internal Medicine 06/26/15 documented as of this encounter
--- OUTSIDE RECORDS SUMMARY | 2024-10-19 12:59 | XMS_ITS | Encounter Summary ---
Author Organization [employer] Address [address] [place] [address] [facility] [place] [address] Care Team Providers Care Rectification Printer Name Role Phone Kristina Anne MD Primary Care Provider +1- [phone] Reason for Referral * Imaging (Routine) - Closed Specialty Diagnoses / Procedures Referred By Contac t Referred To Contact Radiology Diagnoses Pelvic pain Procedures US Pelvis Transvaginal Kristina Anne MD [address] [place] [address] Phone: tel: fax: [address] Phone: tel: fax: Referral ID Status Reason Start Date Expiration Date Visits Re quested Visits Authorized [id number] Closed 07/30/2023 07/29/2024 1 1 Encounter Details Date Type Department Care Team (Late st Contact Info) Description 07/28/2023 Orders Only [facility] MED & PEDS [address] [place] [address] Kristina Anne MD [address] [place] [address] Pelvic pain (Primary Dx) Social History Tobacco Use Types [...] Description 11/01/2024 9:00 AM EDT Clinical Support [facility] MED & PEDS [address] [place] [address] Alayna Ambrosio RN [address] [place] [address] 11/29/2024 10:00 AM EDT Office Visit [facility] MED & PEDS [address] [place] [address] Kristina Anne MD [address] [place] [address] Scheduled Orders Name Type Priority Associated Diagnoses Orde r Schedule US Pelvis Transvaginal Imaging Routine Pelvic pain Expected: 07/30/2023, Expires: 07/30/2024 documented as of this encounter Procedures Procedure Name Priority Date/Time Associated Diagnosis Comments BI MAMMOGRAM DIAGNOSTIC TOMOSYNTHESIS LEFT Routine 08/04/2023 3:30 PM EST documented in this encounter Results * BI Mammogram Diagnostic Tomosynthesis Left (08/04/2023 3:30 PM EST) Anatomical Region Laterality Modality Breast Left Mammography 08/04/2023 3:30 PM EST Narrative 08/18/2023 9:48 AM EDT ? [facility] ? [address] ?[place] [address] ? Mammography Report ? Signed ? Patient: Nic,Ashley ?MR#: [id number] ?? [id number] ? : 1980 ?Acct:[id number] ? Age/Sex: 43 / F ?ADM Date: 08/04/23 ? Loc: HO.MAMMO ? Attending Dr: Kristina Anne MD ? Ordering Physician: Kristina Anne MD ?Results: 1 ?? Negative ? Date of Service: 08/04/23 ?Follow Up: 1 Year From Orig ?? inal Mammogram ? Procedure(s): MM tomosynthesis diagnostic LT ?? Accession Number(s): [id number] ? cc: Kristina Anne MD ? EXAMINATION: [...] by Yeison Smith MD in OV> ?08/18/23 0944 ? DD/ 1530 ? TD/TT: ? Tree Trimmer: ? Procedure Note Trista, Image - 08/18/2023 [facility] [address] [place] [address] Mammography Report Signed Patient: Ana Lucero#: [id number] : 1980Acct:[id number] Age/Sex: 43 / FADM Date: 08/04/23 Loc: HO.MAMMO Attending Dr: Kristina Anne MD Ordering Physician: Kristina Anen MDResults: 1 Negative Date of Service: 08/04/23Follow Up: 1 Year From Orig inal Mammogram Procedure(s): MM tomosynthesis diagnostic LT Accession Number(s): [id number] cc: Kristina Anne MD EXAMINATION: MM DIAGNOSTIC [...] in OV> 08/18/23 0944 DD/ 1530 TD/TT: Tree Trimmer: us Kristina Anne MD IMG BI PROCEDURES Final Res ult documented in this encounter Visit Diagnoses Diagnosis Pelvic pain- Primary documented in this encounter Additional Health Concerns Assessment Noted Time PHQ-9 Depression Total Score: 2 07/10/19 23 11:06 AM EST documented as of this encounter Care Teams Rectification Printer Relationship Specialty Start Date End Date Kristina Anne MD [address] [place] [address] PCP - General Internal Medicine 06/26/15 documented as of this encounter
--- OUTSIDE RECORDS SUMMARY | 2024-10-19 12:59 | XMS_ITS | Encounter Summary ---
Author Organization [employer] Address [address] [facility] 7 [place] [address] Care Team Providers Care Remotely Piloted Vehicle Controller Name Role Phone Kristina Anne MD Primary Care Provider +1- [phone] Reason for Visit * Reason Comments Med Refill Encounter Details Date Type Department Care Team ([facility] Contact Info) Description 06/23/2022 Refill [facility] MED & PEDS [address] [place] [address] Kristina Anne MD [address] [place] [address] Chronic bilateral low back pain with bilateral sciatica Social History Tobacco Use Types Packs/Day Years Used Date Smoking Tobacco: Former Cigarettes Smokeless Tobacco: Never Alcohol Use Standard Drinks/Week Comments Yes 0 (1 standard drink = 0.6 oz pur e alcohol) once or twice a year Comments Unknown Sex and Gender Information Value [...] suspected to have Coronavirus/COVID-19? No / Unsure 06/12/2022 10:35 AM EST documented as of this encounter Plan of Treatment Upcoming Encounters Date Type Department Care Team ([facility] [address] Contact Info) Description 11/01/2024 9:00 AM EDT Clinical Support [facility] MED [facility]EDS [address] [place] [address] Alayna Ambrosio, RN [address] [place] [address] 11/29/2024 10:00 AM EDT Office Visit [facility] MED & PEDS [address] [place] [address] Kristina Anne MD [address] [place] [address] documented as of this encounter Visit Diagnoses Diagnosis Chronic bilateral low back pain with bilateral sciatica documented in this encounter Care Teams Remotely Piloted Vehicle Controller Relationship Specialty Start Date End Date Kristina Anne MD [address] [place] [address] PCP - General Internal Medicine 06/26/15 documented as of this encounter
--- OUTSIDE RECORDS SUMMARY | 2024-10-19 12:59 | XMS_ITS | Encounter Summary ---
Author Organization [employer] Address [address] [facility] [address] [place] [address] Care Team Providers Care Sql Consultant Name Role Phone Kristina Anne MD Primary Care Provider +1- [phone] Encounter Details Date Type Department Care Team ([facility] Contact Info) Description 06/20/2024 Orders Only [facility] MED & PEDS [address] [place] [address] Kristina Anne MD [address] [place] [address] Herpes genitalis in women (Primary Dx) Social History Tobacco Use Types [...] Upcoming Encounters Date Type Department Care Team ([facility] Contact Info) Description 11/01/2024 9:00 AM EDT Clinical Support [facility] MED & PEDS [address] [place] [address] Alayna Ambrosio, RN [address] [place] [address] 11/29/2024 10:00 AM EDT Office Visit [facility] MED & PEDS [address] [place] [address] Kristina Anne MD [address] [place] [address] documented as of this encounter Visit Diagnoses Diagnosis Herpes genitalis in women- Primary Unspecified genital herpes documented in this encounter Additional Health Concerns Assessment Noted Time PHQ-9 Depression Total Score: 2 07/10/19 23 11:06 AM EST documented as of this encounter Care Teams Sql Consultant Relationship Specialty Start Date End Date Kristina Anne MD [address] [place] [address] PCP - General Internal Medicine 06/26/15 documented as of this encounter
--- OUTSIDE RECORDS SUMMARY | 2024-10-19 12:59 | XMS_ITS | Encounter Summary ---
Author Organization [employer] Address [address] [address] Care Team Providers Care Rn Office Name Role Phone Kristina Anne MD Primary Care Provider +1- [phone] Reason for Visit * Reason Onset Date Comments Appointment Request 01/12/2024 Encounter Details Date Type Department Care Team ([facility] st Contact Info) Description 01/12/2024 Telephone [facility] MEDICINE [address] [place] [address] Kristina Anne MD [address] [place] [address] Appointment Request Social History Tobacco Use Types [...] * Telephone Encounter - Juan Perez - 01/12/2024 8:54 AM EDT Tc from patient calling to cancel appt for 01/11 @ 9 and would like a call back to reschedule documented in this encounter Plan of Treatment Upcoming Encounters Date Type Department Care Team ([facility] st Contact Info) Description 11/01/2024 9:00 AM EDT Clinical Support [facility] MED & PEDS [address] [place] [address] Alayna Ambrosio, KARLI [address] [place] [address] 11/29/2024 10:00 AM EDT Office Visit [facility] MED & PEDS [address] [place] [address] Kristina Anne MD [address] [place] [address] documented as of this encounter Visit Diagnoses Not on filedocumented in this encounter Additional Health Concerns Assessment Noted Time PHQ-9 Depression Total Score: 2 07/10/19 23 11:06 AM EST documented as of this encounter Care Teams Rn Office Relationship Specialty Start Date End Date Kristina Anne MD [address] [place] [address] PCP - General Internal Medicine 06/26/15 documented as of this encounter
== END 2024-10-19 12:31 | disposition home or self-care (01) ==
LOC: HO.HGI 11:59
PROVIDERS: PCP Internal Medicine; Visit Provider Nurse Practitioner
DX: K91.5 Postcholecystectomy syndrome (principal); K25.9 Gastric ulcer, unspecified as acute or chronic, without hemorrhage or perforation; K21.9 Gastro-esophageal reflux disease without esophagitis; R19.7 Diarrhea, unspecified
CPT/HCPCS: 99213

== ENCOUNTER → 2024-10-19 11:58 | Outpatient (BNVA) | payer SELFPAY | PROVIDERS: PCP Internal Medicine; Visit Provider Nurse Practitioner | DX: K91.5 Postcholecystectomy syndrome (principal); K25.9 Gastric ulcer, unspecified as acute or chronic, without hemorrhage or perforation; K21.9 Gastro-esophageal reflux disease without esophagitis | CPT/HCPCS: 99212 ==

== ENCOUNTER 2024-11-30 07:58 | Outpatient (REF) | payer OTHER, SELFPAY ==
[2024-11-30 08:08] LABS: MANUAL DIFF FLAG NO
[2024-11-30 08:44] LABS: Basophils Percent Auto 0.5 % (0-2); Eosinophils Absolute Auto 0.1 X10*3/uL (0.0-0.4); Hematocrit 40.4 % (37.0-47.0); Imm Gran Abs Auto 0.02 X10*3/uL (0.00-0.03); Imm Gran Pct Auto 0.3 % (0.0-0.4); Lymphocytes Percent Auto 25.6 % (20-40); Mean Corpuscular HGB Conc 34.7 g/dl (31.0-35.0); Mean Corpuscular Hemoglobin 29.9 pg (27.0-33.0); Mean Corpuscular Volume 86.3 fL (80.0-98.0); Mean Platelet Volume 8.9 fL (9.4-12.3); Monocytes Absolute Auto 0.5 X10*3/uL (0.1-1.2); Monocytes Percent Auto 6.1 % (2-11); Neutrophils Absolute Auto 5.1 x10*3/uL (2.0-8.3); Neutrophils Percent Auto 66.5 % (45-73); Platelet Count 280 X10*3/uL (160-400); Red Blood Count 4.68 X10*6/uL (4.20-5.50); Red Cell Distribution Width 12.2 % (11.0-16.0); White Blood Count 7.7 X10*3/uL (4.8-10.8)
[2024-11-30 09:32] LABS: HIV AB/AG Nonreactive (Nonreactive); HIV Num 1 0.05 S/CO (0.00-0.99); ~HepC Num1 0.28 S/CO (0.00-0.79); ~Hepatitis C Antibody Nonreactive (Nonreactive)
[2024-11-30 09:38] LABS: Alanine Aminotransferase 14 U/L (0-31); Albumin Level 4.4 g/dL (3.5-5.0); Alkaline Phosphatase 48 U/L (39-117); Anion Gap 13 (12-20); Aspartate Amino Transferase 19 U/L (5-31); Bilirubin Total 1.5 mg/dL (0.0-1.0); Blood Urea Nitrogen 10 mg/dL (9-16); Carbon Dioxide 23 mmol/L (22-29); Chloride 108 mmol/L (96-108); Cholesterol 198 mg/dL (<200); Estimated Glomerular Filt Rate > 60; Glucose Random 90 mg/dL (60-115); HDL Cholesterol 54 mg/dL (>40); LDL Cholesterol Calculated 124 mg/dL (<100); Potassium 3.6 mmol/L (3.3-5.1); Sodium 140 mmol/L (135-145); Total Protein 7.6 g/dL (6.5-8.0); Triglycerides 100 mg/dL (<150)
[2024-11-30 09:40] LABS: TSH reflex Free T4 1.36 uIU/mL (0.32-4.0)
== END 2024-11-30 07:59 | disposition home or self-care (01) ==
LOC: HO.LAB 07:58
PROVIDERS: Visit Provider Internal Medicine
DX: Z00.00 Encounter for general adult medical examination without abnormal findings (principal)
CPT/HCPCS: 36415; 80053; 80061; 84443; 85025; 86803; 87389

== ENCOUNTER 2024-12-01 13:01 | Outpatient (AMB) | payer OTHER, SELFPAY ==
--- NOTE | 2024-12-01 13:02 | MHC.OFFVIS ---
Vital Signs 12/01/24 13:04 Height 5 ft 5 in Weight 147 lb 11.355 oz BMI 24.6 BP 110/62 Blood Pressure Location Lt brachial Position Sitting Pulse 70 Intake Visit Reasons: 6 wks f/u post yuliet syndrome Intake Note: Ashley presents in the office as a 6 week follow up for post yuliet syndrome. CC: She states that she is feeling okay and she states that the new medication seems to be helping her! 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 The cholestyramine made her nauseated, and she never received the pantoprazole r/t insurance problems. She had her insurance canceled r/t lack of payments; yet she was able to show proof of payment and she is unsure if it has been re instated. She is working on this. She has not yet heard re: EGD/colonoscopy. She would like it sooner, but we have a big scheduling backlog so I will ask to put her on a cancellation list. She never received PEG, but will send Suprep instead. Her diarrhea continues. ROV 6 week. Medications: New sodium,potassium,mag sulfates 17.5-3.13-1.6 gram (Suprep Bowel Prep Kit) 480 mL orally; FOR COLONOSCOPY PREP 354 mL 0RF sucralfate (Carafate) 2 grams (2 x 1 gram) PO BID 60 tabs 6RF K25.9 - Gastric ulcer, unspecified as acute or chronic, without hemorrhage or perforation, K91.5 - Postcholecystectomy syndrome, R19.7 - Diarrhea, unspecified Refilled pantoprazole 40 mg PO DAILY 90 tabs 1RF K25.9 - Gastric ulcer, unspecified as acute or chronic, without hemorrhage or perforation EGD/COLONOSCOPY BIOPSY TODAY'S VISIT Her current GI regimen consists of pantoprazole 40 mg daily and Carafate 2 g once a day. She is now doing very well on the current regimen and she does not feel she needs a dosing increase. ROV 6 mos. [facility] Medical History (Updated 12/01/24 @ 13:12 by GOLDY Osullivan) Diarrhea COVID-19 Migraine GERD (gastroesophageal reflux disease) Surgical History H/O esophagogastroduodenoscopy H/O colonoscopy Hx of appendectomy Hx of cholecystectomy Family History Father Diabetes Mother Colon cancer Social History Alcohol intake: never Patient Tobacco Use Status: Former Tobacco user Cigarettes Per Day: 10 Years Smoked: 12 e-Cigarette/Vaping Use: Never Used Review of Systems Const Denies fatigue, Denies fever(s), Denies night sweats, Denies poor appetite and Denies weight loss ENT Reports Normal hearing present, Denies dental pain, Denies dysphagia, Denies hearing loss, Denies mouth pain, Denies odynophagia, Denies throat swelling, Denies tongue swelling and Reports other (Dentition adequate) Card Reports no additional complaints Resp Reports no additional complaints GI Details: Denies abdominal pain, Denies melena, Denies bloating, Denies hematochezia, Denies constipation, Denies GI cramping, Denies dysphagia, Denies excessive flatus, Denies early satiety, Reports heartburn, Reports diarrhea, Denies nausea, Denies odynophagia, Denies vomiting and Denies hematemesis Skin/Breast Denies pruritus, Denies lesions, Denies rash and Denies jaundice Neuro Reports Normal hearing present and Denies Abnormal speech present Endo Denies fatigue Aller/Immun Denies throat swelling and Denies tongue swelling Physical Exam Vital Signs: Last Vital Signs Pulse 70 12/01/24 13:04 BP 110/62 12/01/24 13:04 BMI result Body Mass Index 24.6 Const General: cooperative, no acute distress, well developed and well groomed Nutritional Appearance: well nourished Orientation/consciousness: oriented to person, oriented to place and oriented to time Limitations: No language barrier HEENT Head: Yes normocephalic and Yes atraumatic Eyes General: appearance normal, both eyes and all related structures Pupils: Equal, round and reactive pupils present Neck Neck: Yes normal visual inspection and Yes no lymphadenopathy Thyroid: Thyroid normal Resp Effort & Inspection: normal respiratory effort and able to speak in complete sentences Auscultation: clear to auscultation bilaterally Cardio Rate: regular rate Rhythm: regular rhythm Heart sounds: Normal, physiologic split S2 sound present Peripheral pulses: radial pulses present and posterior tibial pulses present GI Inspection: No distended and No Abdominal panniculus present Palpation (GI): Soft to palpation, nontender, no guarding, not rigid and No hepatosplenomegaly present Percussion: Yes normal to percussion Auscultation: normal bowel sounds Rectal Exam - Female: deferred Skin General skin exam: no rashes or lesions noted, turgor normal, skin not dry, no jaundice, No spider nevi and no striae Rashes: no rashes Nails: normal Neuro General: oriented to person, oriented to place and oriented to time Cranial nerves: Yes Equal, round and reactive pupils present and Yes Normal hearing present Speech: No Abnormal speech present Extrem General: Yes normal to inspection, No clubbing, No cyanosis and No edema Psych Appearance: grossly normal and well kempt Mental Status: mental status grossly normal Speech and movement: Normal speech and movement present Affect: normal affect Attitude: cooperative Thought process: Normal thought process present and not confabulating Thought content: Normal thought content present Insight: Good insight present (Psych) Judgement: Good judgement present (Psych) Assessment & Plan Assessment & Plan (1) Post-cholecystectomy syndrome: Code(s): K91.5 - Postcholecystectomy syndrome Category: Medical (2) Gastric erosions: Code(s): K25.9 - Gastric ulcer, unspecified as acute or chronic, without hemorrhage or perforation Category: Medical (3) Tubular adenoma of colon: Comment: 2018 scope= 1 Jg ALEX Code(s): D12.6 - Benign neoplasm of colon, unspecified Category: Medical (4) GERD (gastroesophageal reflux disease): Code(s): K21.9 - Gastro-esophageal reflux disease without esophagitis Category: Medical Plan Her current GI regimen consists of pantoprazole 40 mg daily and Carafate 2 g once a day. She is now doing very well on the current regimen and she does not feel she needs a dosing increase. ROV 6 mos. EGD/COLONOSCOPY BIOPSY Medications: Changed From sucralfate (Carafate) 2 grams (2 x 1 gram) PO BID 60 tabs 6RF K25.9 - Gastric ulcer, unspecified as acute or chronic, without hemorrhage or perforation, K91.5 - Postcholecystectomy syndrome, R19.7 - Diarrhea, unspecified To sucralfate (Carafate) 2 grams (2 x 1 gram) PO BID 360 tabs 1RF 90 days K25.9 - Gastric ulcer, unspecified as acute or chronic, without hemorrhage or perforation, K91.5 - Postcholecystectomy syndrome, R19.7 - Diarrhea, unspecified Refilled pantoprazole 40 mg PO DAILY 90 tabs 1RF K25.9 - Gastric ulcer, unspecified as acute or chronic, without hemorrhage or perforation Coding Level of Care Code Est Pt Level 3 (10322) Diagnoses Post-cholecystectomy syndrome K91.5 Gastric erosions K25.9 Tubular adenoma of colon D12.6 GERD (gastroesophageal reflux disease) K21.9
[2024-12-01 13:04] VITALS: BP 110/62; PULSE 70; BMI 24.6
== END 2024-12-01 13:26 | disposition home or self-care (01) ==
LOC: HO.HGI 13:02
PROVIDERS: PCP Internal Medicine; Visit Provider Nurse Practitioner
DX: K91.5 Postcholecystectomy syndrome (principal); K25.9 Gastric ulcer, unspecified as acute or chronic, without hemorrhage or perforation; D12.6 Benign neoplasm of colon, unspecified; K21.9 Gastro-esophageal reflux disease without esophagitis
CPT/HCPCS: 99213

== ENCOUNTER → 2024-12-01 13:01 | Outpatient (BNVA) | payer OTHER, SELFPAY | PROVIDERS: PCP Internal Medicine; Visit Provider Nurse Practitioner | DX: K91.5 Postcholecystectomy syndrome (principal); K25.9 Gastric ulcer, unspecified as acute or chronic, without hemorrhage or perforation; K21.9 Gastro-esophageal reflux disease without esophagitis; R19.7 Diarrhea, unspecified; D12.6 Benign neoplasm of colon, unspecified | CPT/HCPCS: 99212 ==

== ENCOUNTER 2024-12-12 17:51 | Outpatient (REF) | payer OTHER, SELFPAY ==
--- OUTSIDE RECORDS SUMMARY | 2024-12-12 17:53 | XMS_ITS | Clinical Summary ---
Author Organization [facility], Address [address] [address] Phone Care Team Providers Care It Auditor Name Role Phone Unavailable Primary Care Provider [...] 61 02/24/2022 11:47 AM EDT Temperature 36.4 C (97.5 F) 02/24/2022 11:47 AM EDT Respiratory Rate - - Oxygen Saturation 100% [...] - 19+ 3-dose series) 2001 Influenza Vaccine (#1) 2025 Pneumococcal Vaccine: Peds ( 0 to 5 Years) and At-Risk Patients (6 to 49 Years) Aged Out No longer eligible b ased on patient's age to complete this topic Insurance Medicaid [place]
--- OUTSIDE RECORDS SUMMARY | 2024-12-12 17:53 | XMS_ITS | Encounter Summary ---
Author Organization [employer] Address [address] [address] Care Team Providers Care Projection Printer Name Role Phone Kristina Anne MD Primary Care Provider [phone] Reason for Visit * Reason Onset Date Comments Med Refill 09/29/2022 Encounter Details Date Type Department Care Team ([facility] st Contact Info) Description 09/29/2022 Telephone [facility] MED[facility]INE [address] [place] [address] Kristina Anne MD [address] [place] [address] Med Refill Social History Tobacco Use Types [...] Care Team (Late st Contact Info) Description 01/04/2025 9:00 AM EDT Clinical Support [facility] [address] [place] [address] Alayna Ambrosio RN [address] [place] [address] 01/29/2025 9:30 AM EDT Clinical Support [facility] [address] [place] [address] documented as of this encounter Visit Diagnoses Not on filedocumented in this encounter Additional Health Concerns Assessment Noted Time PHQ-9 Depression Total Score: 2 07/10/19 23 11:06 AM EST documented as of this encounter Care Teams Projection Printer Relationship Specialty Start Date End Date Kristina Anne MD [address] [place] [address] PCP - General Internal Medicine 06/26/15 documented as of this encounter
--- OUTSIDE RECORDS SUMMARY | 2024-12-12 17:53 | XMS_ITS | Clinical Summary ---
Author Organization [facility] ity Address [address] [place] [address] Care Team Providers Care Foil Spooler Name Role Phone Kristina Anne MD Primary Care Provider [phone] [phone] Surgical History Surgery Date Site/Laterality Comments APPENDECTOMY 2004 PROCEDURE: [place] APPENDECTOMY CHOLECYSTECTOMY 2009 PROCEDURE: LAPAROSCOPY, CHOLECYSTECTOMY WISDOM [...] 2023-2 5 season) 2024 Influenza Vaccine (#1) 2025 0, 03/15/2019 DTaP,Tdap,and Td Vaccines (2 - Td [...] age to complete this topic Care Teams Foil Spooler Relationship Specialty Start Date End Date Kristina Anne MD [address] [place] [address] [place] PCP - General Internal Medicine 10/20/21
== END 2024-12-12 17:52 | disposition home or self-care (01) ==
LOC: HO.CHCLNP 17:51
PROVIDERS: Visit Provider Family Medicine
DX: Z12.4 Encounter for screening for malignant neoplasm of cervix (principal)
CPT/HCPCS: 88175

== ENCOUNTER 2024-12-26 12:33 | Emergency (ER) | payer OTHER, SELFPAY ==
[2024-12-26 12:50] VITALS: BP 115/34; PULSE 80; RESP 16; TEMP 36.7; O2SAT 96; BMI 25.6
--- NOTE | 2024-12-26 12:55 | ED_ITS ---
HPI - General Adult General Chief complaint: Urogenital-Female Stated complaint: ? blockage when urinating Time Seen by Provider: 12/26/24 15:00 Source: patient Mode of arrival: ambulatory Limitations: no limitations History of Present Illness HPI narrative: This is a 44 years old patient presented to the emergency department with a chief complaint of difficulty urinating she feels like something stuck when urinating. She denies any fever chills vomiting symptoms have been going on for about a week. Onset (ago): week(s) (1) Radiation: non-radiation Severity: mild Quality: burning, aching and dull Pain Consistency: constant Relieving factors: none Exacerbating factors: none Associated symptoms: denies other symptoms Treatments prior to arrival: none Related Data Home Medications ?Medication ?Instructions ?Recorded ?Confirmed fluoxetine 40 mg capsule 40 mg PO DAILY 08/07/2001/25 gabapentin 100 mg capsule 100 - 200 mg PO BEDTIME 11/06 12/29 lidocaine 5 % topical patch 1 patch topical DAILY 11/06 12/29 oxycodone-acetaminophen 5 mg-325 1 tab PO pain 5 mg tablet sumatriptan succinate 100 mg tablet 100 mg PO DIREC IONA 12/01/24 Previous Rx's ?Medication ?Instructions ?Recorded sodium,potassium,mag sulfates 17.5 480 ml PO .COMPLEX #354 mL 10/19/24 gram-3.13 gram-1.6 gram oral soln (Suprep Bowel Prep Kit) pantoprazole 40 mg tablet,delayed 40 mg PO DAILY #90 t abs 12/01/24 release sucralfate 1 gram tablet (Carafate) 2 g (2 x 1 gram) P O BID 90 days 12/01/24 #360 tabs cephalexin 500 mg capsule 500 mg PO Q8H 5 days #15 cap s 12/26/24 phenazopyridine 200 mg tablet 200 mg PO TID 6 doses #6 tabs 12/26/24 (Pyridium) Allergies Allergy/AdvReac Type Severity Reaction Status Date / Time No Known Allergies (No Known Allergy Verified 12/26/24 12:54 Allergies*) Review of Systems 2 Constitutional: Constitutional: Reports no additional constitutional complaints ENT: Reports system reviewed and no additional complaints, except as documented Genitourinary: Genitourinary: Reports as per [facility] Past Medical History Attestation statement: The following information was validated with the patient. Medical History Diarrhea COVID-19 Migraine GERD (gastroesophageal reflux disease) Surgical History H/O esophagogastroduodenoscopy H/O colonoscopy Hx of appendectomy Hx of cholecystectomy Family History Family History Father Diabetes Mother Colon cancer Social History Social History Unable to assess alcohol history related to: Unknown Alcohol intake: never Patient Tobacco Use Status: Former Tobacco user Cigarettes Per Day: 10 Years Smoked: 12 Smoked in Last 30 Days: No e-Cigarette/Vaping Use: Never Used Use of substances other than those prescribed or required for medical reasons: Unknown Advance Directives: No Advance Directives Information Provided: Yes Physical Exam ED Exam Exam: No acute distress looks well comfortable in the chair Vital Signs: Vital Signs - 24 hr 12/26/24 12:50 12/26/24 15:19 Temperature 98.0 F 98 F Pulse Rate 80 80 Respiratory Rate 16 16 Blood Pressure 115/34 L 115/39 L Pulse Oximetry 96 96 Oxygen Delivery Method Room Air Room Air BMI result Body Mass Index 25.6 Normotensive afebrile Const General: cooperative Nutritional Appearance: average body habitus Orientation/consciousness: patient oriented x3 Limitations: no limitations HENMT Head: Yes normal to inspection General nose exam: Normal external nose present Face and sinus: Yes normal facial exam Mouth: Normal oral and palatal mucosa present Throat: Yes posterior oropharynx normal Neck Neck: Yes normal visual inspection Chest Chest palpation & inspection: normal inspection of the chest Resp Effort & Inspection: normal respiratory effort Auscultation: clear to auscultation bilaterally Cardio Jugular venous distension: no JVD Rate: regular rate Rhythm: regular rhythm GI Inspection: Yes normal to inspection Palpation (GI): Soft to palpation, not firm, nontender and no guarding Auscultation: normal bowel sounds Skin General skin exam: no rashes or lesions noted Lesions: no lesions Rashes: no rashes Neuro General: patient oriented x3 Cranial nerves: Yes CN's II-XII intact bilaterally Course Course Course Narrative: RME: [age] year female presents to ED for dysuria and difficulty urinating. Patient denies any vaginal discharge, vaginal lesions, abdominal pain or back pain. Labs UA ordered Medical Decision Making Medical Decision Making [facility] Narrative: Patient is here complaining of difficulty urinating broad differential diagnosis including UTI kidney stones pyelonephritis we will obtain labs and UA Differential Diagnosis Differential Diagnoses: The differential diagnosis associated with the presentation includes Pyelonephritis/cystitis/urethritis/kidney stone Admission/Observation Consideration of admission/observation: Escalation of care including admission/observation considered Lab Data [facility] Lab Attestation statement: I reviewed the patient's lab results. 12/26/24 13:13 12/26/24 13:13 Labs: Lab Results 12/26/24 Range/Units 13:13 WBC 6.3 (4.8-10.8) X10*3/uL RBC 4.13 L (4.20-5.50) X10*6/uL Hgb 12.4 (12.0-16.0) g/dl Hct 36.0 L (37.0-47.0) % MCV 87.2 (80.0-98.0) fL MCH 30.0 (27.0-33.0) pg MCHC 34.4 (31.0-35.0) g/dl RDW 12.1 (11.0-16.0) % Plt Count 225 (160-400) X10*3/uL MPV 9.2 L (9.4-12.3) fL Immature Gran % (Auto) 0.3 (0.0-0.4) % Neut % (Auto) 65.0 (45-73) % Lymph % (Auto) 26.9 (20-40) % [place] % (Auto) 6.7 (2-11) % Eos % (Auto) 0.6 (0-4) % Baso % (Auto) 0.5 (0-2) % Lymph # (Auto) 1.7 (1.2-4.9) X10*3/uL [place] # (Auto) 0.4 (0.1-1.2) X10*3/uL Eos # (Auto) 0.0 (0.0-0.4) X10*3/uL Baso # (Auto) 0.0 (0.0-0.2) X10*3/uL Abs Immat Gran (auto) 0.02 (0.00-0.03) X10*3/uL Absolute Neuts (auto) 4.1 (2.0-8.3) x10*3/uL Absolute Nucleated RBC 0.000 (0.0-0.012) X10*3/uL Nucleated RBC % (auto) 0.0 (0.0-0.2) /100WBC Sodium 140 (135-145) mmol/L Potassium 3.9 (3.3-5.1) mmol/L Chloride 106 (96-108) mmol/L Carbon Dioxide 26 (22-29) mmol/L Anion Gap 12 (12-20) BUN 10 (9-16) mg/dL Creatinine 1.09 (0.5-1.4) mg/dL Estim Creat Clear Calc 63.5 Estimated GFR 55 Random Glucose 101 (60-115) mg/dL Calcium 8.7 (8.4-10.2) mg/dL Total Bilirubin 2.3 H (0.0-1.0) mg/dL AST 23 (5-31) U/L ALT 18 (0-31) U/L Alkaline Phosphatase 42 (39-117) U/L Total Protein 7.1 (6.5-8.0) g/dL Albumin 4.3 (3.5-5.0) g/dL Beta HCG, Quant < 2 mIU/mL Urine Color Yellow Urine Appearance Clear Urine pH 7.5 (5.0-9.0) Ur Specific [place] 1.020 (1.005-1.025) Urine Protein Trace (Neg-Trace) mg/dL Urine Glucose (UA) Negative (Negative) mg/dL Urine Ketones Trace (Negative) mg/dL Urine Blood Negative (Negative) Urine Nitrite Negative (Negative) Ur Leukocyte Esterase Moderate (2+) H (Negative) Urine RBC 0-2 (0-2) /HPF Urine WBC 21-50 (0-5) /HPF Ur Squamous Epith Cells 3-5 (0-2) /HPF Urine Bacteria 1+ (None Seen) Hyaline Casts 0-2 (0-2) /LPF Urine Test NEGATIVE (NEGATIVE) External Record Review External record reviewed: Other (prior ED Record) Prescription Management I considered prescription management with: Antibiotic Discharge Plan Discharge Clinical Impression: UTI (urinary tract infection) Patient Disposition: Home, Self-Care Instructions: Acute Urinary Retention in Women (ED) Prescriptions: New cephalexin 500 mg capsule 500 mg PO Q8H 5 Days Qty: 15 0RF phenazopyridine [Pyridium] 200 mg tablet 200 mg PO TID Qty: 6 0RF No Action fluoxetine 40 mg capsule 40 mg PO DAILY sumatriptan succinate 100 mg tablet 100 mg PO DIRECTED oxycodone-acetaminophen 5-325 mg tablet 1 tab PO lidocaine 5 % adhesive patch,medicated 1 patch topical DAILY gabapentin 100 mg capsule 100 - 200 mg PO BEDTIME pantoprazole 40 mg tablet,delayed release (DR/EC) 40 mg PO DAILY Qty: 90 1RF sucralfate [Carafate] 1 gram tablet 2 g PO BID 90 Days Qty: 360 1RF sodium,potassium,mag sulfates [Suprep Bowel Prep Kit] 17.5-3.13-1.6 gram recon soln 480 ml PO .COMPLEX Qty: 354 0RF Rx Instructions: 480 mL orally; FOR COLONOSCOPY PREP Interventions: ED Discharge Assessment Last Done: 12/26/24 15:19 Discharge Date/Time: 12/26/24 15:20 Print Language: Telugu
[2024-12-26 13:26] LABS: MANUAL DIFF FLAG NO
[2024-12-26 13:31] LABS: Appearance Urine Clear; Glucose Urine UA Negative (Negative); PH 7.5 (5.0-9.0); Specific Gravity - Urine 1.020 (1.005-1.025); UMIC TRIGGER UACC YES
[2024-12-26 13:39] LABS: Hematocrit 36.0 % (37.0-47.0); Hemoglobin 12.4 g/dl (12.0-16.0); Imm Gran Abs Auto 0.02 X10*3/uL (0.00-0.03); Imm Gran Pct Auto 0.3 % (0.0-0.4); Lymphocytes Absolute Auto 1.7 X10*3/uL (1.2-4.9); Mean Corpuscular HGB Conc 34.4 g/dl (31.0-35.0); Mean Corpuscular Hemoglobin 30.0 pg (27.0-33.0); Mean Corpuscular Volume 87.2 fL (80.0-98.0); NRBC Abs Auto 0.000 X10*3/uL (0.0-0.012); NRBC Pct Auto 0.0 /100WBC (0.0-0.2); Platelet Count 225 X10*3/uL (160-400); Red Blood Count 4.13 X10*6/uL (4.20-5.50); White Blood Count 6.3 X10*3/uL (4.8-10.8)
[2024-12-26 13:55] LABS: UACC Culture Trigger YES
[2024-12-26 13:58] LABS: Alanine Aminotransferase 18 U/L (0-31); Albumin Level 4.3 g/dL (3.5-5.0); Alkaline Phosphatase 42 U/L (39-117); Anion Gap 12 (12-20); Aspartate Amino Transferase 23 U/L (5-31); Blood Urea Nitrogen 10 mg/dL (9-16); Calcium 8.7 mg/dL (8.4-10.2); Carbon Dioxide 26 mmol/L (22-29); Chloride 106 mmol/L (96-108); Creatinine Clr Calc Pharmacy 63.5; Estimated Glomerular Filt Rate 55; Potassium 3.9 mmol/L (3.3-5.1); Sodium 140 mmol/L (135-145); Total Protein 7.1 g/dL (6.5-8.0); UPreg QC Valid YES
[2024-12-26 15:19] VITALS: BP 115/39; PULSE 80; RESP 16; TEMP 36.6; O2SAT 96
--- OUTSIDE RECORDS SUMMARY | 2024-12-26 15:59 | XMS_ITS | Encounter Summary ---
Author Organization [employer] Address [address] [address] Care Team Providers Care Manager Transmission Name Role Phone Kristina Anne MD Primary Care Provider [phone]- [phone] Reason for Visit * Reason Onset Date Comments Med Refill 09/29/2022 Encounter Details Date Type Department Care Team ([facility] st Contact Info) Description 09/29/2022 Telephone [facility] [address] [place] [address] Kristina Anne MD [address] [place] [address] Med Refill Social History Tobacco Use Types [...] Description 01/04/2025 9:00 AM EDT Clinical Support [facility] [address] [place] [address] Alayna Ambrosio RN [address] [place] [address] 01/29/2025 9:30 AM EDT Clinical Support [facility] [address] [place] [address] documented as of this encounter Visit Diagnoses Not on filedocumented in this encounter Additional Health Concerns Assessment Noted Time PHQ-9 Depression Total Score: 2 07/10/19 23 11:06 AM EST documented as of this encounter Care Teams Manager Transmission Relationship Specialty Start Date End Date Kristina Anne MD [address] [place] [address] PCP - General Internal Medicine 06/26/15 documented as of this encounter
--- OUTSIDE RECORDS SUMMARY | 2024-12-26 15:59 | XMS_ITS | Clinical Summary ---
Author Organization [facility], Address [address] [place] [address] Phone Care Team Providers Care Microsoft Office Instructor Name Role Phone Unavailable Primary Care Provider [...]
--- OUTSIDE RECORDS SUMMARY | 2024-12-26 15:59 | XMS_ITS | Clinical Summary ---
Author Organization [facility] ity Address [address] [place] [address] Care Team Providers Care Hat Designer Name Role Phone Kristina Anne MD Primary Care Provider [phone] Surgical History Surgery Date Site/Laterality Comments APPENDECTOMY 2004 PROCEDURE: [place] APPENDECTOMY CHOLECYSTECTOMY 2009 PROCEDURE: LAPAROSCOPY, CHOLECYSTECTOMY WISDOM [...] Cervical Cancer Screening: P ap Smear 2003 HIV Screening 05/09/2022 Hepatitis C Screening 05/09/2022 Social Influencers of Health Screening 05/09/2022 COVID-19 Vaccine (1 - 2023-2 5 season) 2024 Depression Screening 06/07/2024 Influenza Vaccine (#1) 2025 0, 03/15/2019 DTaP,Tdap,and [...] age to complete this topic Care Teams Hat Designer Relationship Specialty Start Date End Date Kristina Anne MD [address] [place] [address] [place] PCP - General Internal Medicine 10/20/21
== END 2024-12-26 15:20 | disposition home or self-care (01) ==
PROVIDERS: Physician Assistant; Emergency Provider Emergency Medicine; PCP Internal Medicine
DX: N39.0 Urinary tract infection, site not specified (principal); R33.9 Retention of urine, unspecified
CPT/HCPCS: 36415; 80053; 81001; 81025; 84702; 85025; 87086; 87088; 87186; 99283; 99284

== ENCOUNTER 2025-01-25 08:33 | Day surgery (SDC) | payer OTHER, SELFPAY ==
--- OUTSIDE RECORDS SUMMARY | 2025-01-03 14:20 | XMS_ITS | Clinical Summary ---
Author Organization [facility] ity Address [address] [place] [address] Care Team Providers Care Drivability Technician Name Role Phone Kristina Anne MD Primary Care Provider [phone] -[phone] Surgical History Surgery Date Site/Laterality Comments APPENDECTOMY 2004 PROCEDURE: [place] APPENDECTOMY CHOLECYSTECTOMY 2009 PROCEDURE: LAPAROSCOPY, CHOLECYSTECTOMY WISDOM [...] age to complete this topic Care Teams Drivability Technician Relationship Specialty Start Date End Date Kristina Anne MD [address] [place] [address] [place] PCP - General Internal Medicine 10/20/21
--- OUTSIDE RECORDS SUMMARY | 2025-01-03 14:20 | XMS_ITS | Clinical Summary ---
Author Organization [facility], Address [address] [address] Phone Care Team Providers Care Regional Service Manager Name Role Phone Unavailable Primary Care Provider [...]
--- OUTSIDE RECORDS SUMMARY | 2025-01-03 14:20 | XMS_ITS | Encounter Summary ---
Author Organization [employer] Address [address] [address] Care Team Providers Care Assorter Laundry Name Role Phone Kristina Anne MD Primary Care Provider [phone]- [phone] Reason for Visit * Reason Onset Date Comments Med Refill 09/29/2022 Encounter Details Date Type Department Care Team ([facility] st Contact Info) Description 09/29/2022 Telephone [facility] MEDICINE [address] [place] [address] Kristina Anne MD [address] [place] [address] Med Refill Social History Tobacco Use Types [...] Description 01/04/2025 9:00 AM EDT Clinical Support [facility] [address] [place] [address] Alayna Ambrosio RN [address] [place] [address] 01/29/2025 9:30 AM EDT Clinical Support [facility] [address] [place] [address] documented as of this encounter Visit Diagnoses Not on filedocumented in this encounter Additional Health Concerns Assessment Noted Time PHQ-9 Depression Total Score: 2 07/10/19 23 11:06 AM EST documented as of this encounter Care Teams Assorter Laundry Relationship Specialty Start Date End Date Kristina Anne MD [address] [place] [address] PCP - General Internal Medicine 06/26/15 documented as of this encounter
[2025-01-23 09:12] VITALS: BMI 24.6
--- NOTE | 2025-01-24 09:22 | HO.ANESPROP2 ---
HPI - Anesthesia Eval Consult details Narrative: 44yo F for Upper Endoscopy and Colonoscopy PMFSH Active Problems Active Problems: All Active Problems Post-cholecystectomy syndrome (Acute) Pre-op examination (Acute) Gastric erosions (Acute) Tubular adenoma of colon (Acute) Depression with anxiety (Acute) Patella-femoral syndrome (Acute) Migraine (Acute) GERD (gastroesophageal reflux disease) (Acute) Past Medical History Medical History Anemia Depression with anxiety Diarrhea Migraine GERD (gastroesophageal reflux disease) Family History Family History Father Diabetes Mother Colon cancer Surgical History Surgical History History of back surgery H/O esophagogastroduodenoscopy H/O colonoscopy Hx of appendectomy Hx of cholecystectomy Social History Social History Unable to assess alcohol history related to: Unknown Alcohol intake: never Patient Tobacco Use Status: Former Tobacco user Cigarettes Per Day: 10 Years Smoked: 12 e-Cigarette/Vaping Use: Never Used Meds Allergies Allergy/AdvReac Type Severity Reaction Status Date / Time No Known Allergies (No Known Allergy Verified 01/25/25 09:16 Allergies*) Home Medications ?Medication ?Instructions ?Recorded ?Confirmed ?Last Taken ?Type fluoxetine 40 mg capsule 40 mg PO DAILY 08/07/20 01/23/25 Unknown History gabapentin 100 mg capsule 100 - 200 mg PO BEDTIME 12/01/24 01/23/25 Unknown History lidocaine 5 % topical patch 1 patch topical DAILY 12/01/24 01/23/25 Unknown History oxycodone-acetaminophen 5 mg-325 1 tab PO pain 12/01/24 Unknown History mg tablet sumatriptan succinate 100 mg tablet 100 mg PO DIRECTED 12/01/24 01/23/25 Unknown History Exam Height,Weight and Vital Signs: Height 5 ft 5 in Weight 67.132 kg Assessment and Plan Assessment Anesthesia Assessment: Chart Reviewed
[2025-01-25 09:11] VITALS: BMI 24.5
[2025-01-25 09:17] LABS: UPreg QC Valid YES
[2025-01-25 09:25] VITALS: BP 100/52; PULSE 66; RESP 15; TEMP 36.4; O2SAT 98
[2025-01-25] MEDS: Lactated Ringers 1,000 ML 100 ML IVCONT (09:26)
--- NOTE | 2025-01-25 09:47 | MHC.SHP ---
Pre-Procedural Eval Section A - 24 Hr Update-Section A only Date of Service: 01/25/25 Section B - Complete if H&P > 30 days Chief Complaint: Gastritis, fam hx of colon ca Details of Present Illness: Diarrhea COVID-19 Migraine GERD (gastroesophageal reflux disease) Surgical History H/O esophagogastroduodenoscopy H/O colonoscopy Hx of appendectomy Hx of cholecystectomy Present Medications: see Short Stay Collaborative assessment Allergies: Allergies Allergy/AdvReac Type Severity Reaction Status Date / Time No Known Allergies (No Known Allergy Verified 01/25/25 09:16 Allergies*) Review of Systems Review of Systems Comment: Ten point ROS negative Exam Exam Comment: Gen appear: No acute distress HEENT: no icterus Chest: No overt resp distress Abd: soft, nontender, nondistended Psych: Stable affect, answering questions appropriately Neuro: A/Ox3 noted to move all extremities spontaneously Ext: no peripheral edema Plan Diagnosis/Plan: Unchanged I have reviewed the history and physical and performed a pertinent physical examination on my patient. No changes have occurred unless specified. Time Spent With Patient Time: Total time managing care of this patient today ____ minutes.
--- NOTE | 2025-01-25 11:05 | P.OPN-COLO_ITS ---
Colonoscopy Operative Note Operative Note Date of Service: 01/25/25 Narrative: Procedure: Upper endoscopy and colonoscopy Indication: Gastritis, fam hx of colon ca Endoscopist: Radha Zhong MD Anesthesia Provider: Dr Lisette Yi Anesthesia type: MAC Instrument: [id number] and [id number] EGD Procedure:?? The procedure, indications, preparation and potential complications were reviewed with the patient, who indicated understanding and gave written informed consent to proceed. The endoscope was introduced through the mouth, and advanced to the 2nd part of the duodenum. The mucosa was carefully examined on slow withdrawal of the endoscope. The patient tolerated the procedure well. There were no immediate complications.? EGD Findings:? * Esophagus:? Normal esophageal mucosa was noted. The Z-line was at 38 cm. * Stomach:? Erythema and erosions in the antrum. Retroflexion was performed in the cardia. Cold forceps biopsies were taken from the stomach body and antrum * Duodenum:? Normal duodenal mucosa. Colonoscopy Procedure:? The patient was then turned for the colonoscopy. A digital rectal exam was performed which was normal.? A distal attachment cap was affixed to the tip of the scope and the colonoscope was then inserted through the anus and advanced through the colon and advanced to the cecum at 75 cm and terminal ileum.? Appendiceal orifice and ileocecal valve were identified. Mucosa was carefully examined under high definition white light as the instrument was slowly withdrawn in a retrograde panoramic fashion. Retroflexion was performed in rectum. The procedure was not difficult. The quality of the prep was BBPS:2+3+3 = adequate Withdrawal time 6 minutes Limitations: No limitations Findings: Mucosa: Normal colon and terminal ileum mucosa. Protruding lesions: * Medium internal hemorrhoids without stigmata of recent bleeding. Impression: 1. Normal esophagus 2. Gastritis 3. Normal duodenum 4. Normal colon and terminal ileum mucosa 5. Internal hemorrhoids Recommendations:?? * Follow-up path results * Avoid NSAIDs * H Pylori treatment if biopsies + * Repeat colonoscopy for CRC screening in 5 years due to family history.
[2025-01-25 11:10] VITALS: BP 101/48; PULSE 76; RESP 16; TEMP 36.8; O2SAT 100
--- NOTE | 2025-01-25 11:39 | HO.ANESPROP2 ---
[facility] Active Problems Active Problems: All Active Problems (Updated 01/25/25 @ 09:15 by Flavia Gilbert RN) Post-cholecystectomy syndrome (Acute) Pre-op examination (Acute) Gastric erosions (Acute) Tubular adenoma of colon (Acute) Depression with anxiety (Acute) Patella-femoral syndrome (Acute) Migraine (Acute) GERD (gastroesophageal reflux disease) (Acute) Past Medical History Medical History Anemia Depression with anxiety Diarrhea Migraine GERD (gastroesophageal reflux disease) Functional capacity: independent ambulation Family History Family History Father Diabetes Mother Colon cancer Family history of problems with anesthesia: Yes Surgical History Surgical History History of back surgery H/O esophagogastroduodenoscopy H/O colonoscopy Hx of appendectomy Hx of cholecystectomy History of Problems with Anesthesia: No Social History Social History Unable to assess alcohol history related to: Unknown Alcohol intake: never Patient Tobacco Use Status: Former Tobacco user Cigarettes Per Day: 10 Years Smoked: 12 e-Cigarette/Vaping Use: Never Used Use of substances other than those prescribed or required for medical reasons: No Are you DNR?: No Advance Directives: No Advance Directives Information Provided: Yes Meds Allergies Allergy/AdvReac Type Severity Reaction Status Date / Time No Known Allergies (No Known Allergy Verified 01/25/25 09:16 Allergies*) Active Medications: Current Medications Lactated Ringer's (Lr) 1,000 mls @ 100 mls/hr IVCONT .Q10H KULDIP Last Admin: 01/25/25 09:26 Dose: 100 mls/hr Home Medications ?Medication ?Instructions ?Recorded ?Confirmed ?Last Taken ?Type fluoxetine 40 mg capsule 40 mg PO DAILY 08/07/20 01/23/25 Unknown History gabapentin 100 mg capsule 100 - 200 mg PO BEDTIME 12/01/24 01/23/25 Unknown History lidocaine 5 % topical patch 1 patch topical DAILY 12/01/24 01/23/25 Unknown History oxycodone-acetaminophen 5 mg-325 1 tab PO pain 12/01/24 Unknown History mg tablet sumatriptan succinate 100 mg tablet 100 mg PO DIRECTED 12/01/24 01/23/25 Unknown History Exam Height,Weight and Vital Signs: Height 5 ft 5 in Weight 66.7 kg Last Vital Signs Temp 98.3 F 01/25/25 11:10 Pulse 76 01/25/25 11:10 Resp 16 01/25/25 11:10 BP 101/48 L 01/25/25 11:10 Pulse Ox 100 01/25/25 11:10 O2 Del Method Room Air 01/25/25 11:10 Pertinent Lab Results Pertinent Lab Results: Laboratory Tests 01/25/25 09:05 Urine Test NEGATIVE Airway Mallampati Class: II TM Dist: >3cm Neck ROM: Full Heart: RRR Lungs: CTA Assessment and Plan Assessment Anesthesia Assessment: Anesthesia Plan Discussed Final Anesthetic Review Family History of Problems with Anesthesia: Yes History of Problems with Anesthesia: No NPO: Yes ASA Class: II Final Preanesthetic Review: Meds/Allgs Chart Reviewed, Consent Obtained/Reviewed and Anes Risks/Benef Reviewed Patient Risk: Low Procedure Risk: Low Anesthetic Plan Anesthetic Plan: MAC: Disposition: Standard PACU
--- NOTE | 2025-01-25 11:41 | HO.POSTANES ---
Post Anesthesia Evaluation Post Anesthesia Evaluation Date of Service: 01/25/25 Vital Signs: Vital Signs Temp Pulse Resp BP Pulse Ox O2 Del Method 01/25/25 11:10 98.3 F 76 16 101/48 L 100 Room Air 01/25/25 09:25 97.6 F 66 15 100/52 L 98 Room Air Anesthesia: Monitored Mental Status: Awake Pain Control: Satisfactory Nausea/Vomiting: None Hydration: Adequate Anesthesia-Related Issues: No Anes. Related Issues
[2025-01-25 11:44] VITALS: BP 120/73; PULSE 80; RESP 16; TEMP 36.1; O2SAT 99
== END 2025-01-25 11:57 | disposition home or self-care (01) ==
PROVIDERS: Nurse Practitioner; PCP Internal Medicine; Visit Provider Internal Medicine
PROC: (CPT 45378; principal; 2025-01-25 10:50)
DX: Z12.11 Encounter for screening for malignant neoplasm of colon (principal); K64.8 Other hemorrhoids; Z86.0101 Personal history of adenomatous and serrated colon polyps; Z80.0 Family history of malignant neoplasm of digestive organs; K21.9 Gastro-esophageal reflux disease without esophagitis; K29.60 Other gastritis without bleeding; K25.9 Gastric ulcer, unspecified as acute or chronic, without hemorrhage or perforation; K91.5 Postcholecystectomy syndrome; Z87.891 Personal history of nicotine dependence; Z79.899 Other long term (current) drug therapy
CPT/HCPCS: 45378; 43239; 81025; 88305; 88313; 88342; J0461; J2003; J2704

== ENCOUNTER → 2025-01-25 08:33 | Outpatient (BNV) | payer OTHER, SELFPAY | PROVIDERS: PCP Internal Medicine; Visit Provider Internal Medicine | DX: Z12.11 Encounter for screening for malignant neoplasm of colon (principal); Z80.0 Family history of malignant neoplasm of digestive organs; K29.70 Gastritis, unspecified, without bleeding | CPT/HCPCS: 43239; 45378 ==

== ENCOUNTER 2025-02-25 15:24 | Emergency (ER) | payer OTHER, SELFPAY ==
[2025-02-25 16:14] VITALS: BP 98/62; PULSE 76; RESP 18; TEMP 36.4; O2SAT 99; BMI 23.5
--- NOTE | 2025-02-25 16:14 | ED.GENADULT ---
HPI - General Adult General Chief complaint: Skin/Abscess/Foreign Body Stated complaint: ? shingles Time Seen by Provider: 02/25/25 16:35 Source: patient, RN notes reviewed and old records reviewed Mode of arrival: ambulatory Limitations: no limitations History of Present Illness ED Provider: Rafaela HPI narrative: Patient is a 44-year-old female presenting to the ED with complaint of painful burning rash to left side of neck for the past week. Also reports small areas of rash to right side of abdomen and right thigh. Has history of chicken pox. Denies fevers. complaint: rash Onset (ago): week(s) Related Data Home Medications ?Medication ?Instructions ?Recorded ?Confirmed fluoxetine 40 mg capsule 40 mg PO DAILY 08/07/20 01/23/25 gabapentin 100 mg capsule 100 - 200 mg PO BEDTIME 12/01/24 01/23/25 lidocaine 5 % topical patch 1 patch topical DAILY 12/01/24 01/23/25 oxycodone-acetaminophen 5 mg-325 1 tab PO pain 12/01/24 mg tablet sumatriptan succinate 100 mg tablet 100 mg PO DIRECTED 12/01/24 01/23/25 Previous Rx's ?Medication ?Instructions ?Recorded sucralfate 1 gram tablet (Carafate) 2 g (2 x 1 gram) PO BID 90 days 12/01/24 #360 tabs esomeprazole magnesium 20 mg 20 mg PO DAILY Gastritis 90 days 01/25/25 capsule,delayed release #90 caps cephalexin 500 mg capsule 500 mg PO QID #28 caps 02/25/25 valacyclovir 1 gram tablet 1,000 mg PO TID #21 tabs 02/25/25 Allergies Allergy/AdvReac Type Severity Reaction Status Date / Time No Known Allergies (No Known Allergy Verified 02/25/25 16:16 Allergies*) Review of Systems Review of Systems: As per HPI Yes all other systems are reviewed and are negative Constitutional: Constitutional: Reports as per HPI PMFSH Past Medical History Medical History Anemia Depression with anxiety Diarrhea Migraine GERD (gastroesophageal reflux disease) Surgical History History of back surgery H/O esophagogastroduodenoscopy H/O colonoscopy Hx of appendectomy Hx of cholecystectomy Family History Family History Father Diabetes Mother Colon cancer Social History Social History Unable to assess alcohol history related to: Unknown Alcohol intake: never Patient Tobacco Use Status: Former Tobacco user Cigarettes Per Day: 10 Years Smoked: 12 e-Cigarette/Vaping Use: Never Used Physical Exam ED Vital Signs: Vital Signs - 24 hr 02/25/25 16:14 02/25/25 16:37 Temperature 97.5 F 97.5 F Pulse Rate 76 76 Respiratory Rate 18 18 Blood Pressure 98/62 98/62 Pulse Oximetry 99 99 Oxygen Delivery Method Room Air Room Air BMI result Body Mass Index 23.5 Vital signs have been reviewed and appear to be correct. Blood pressure normal. Heart rate normal. Respiratory rate normal. Temperature normal. Oxygen saturation normal. Const General: cooperative, healthy appearing and no acute distress Orientation/consciousness: oriented to person, oriented to place, oriented to time and patient oriented x3 Limitations: no limitations HENMT Head: Yes normocephalic and Yes atraumatic Ears: external ears normal General nose exam: Normal external nose present Face and sinus: Yes face symmetric Mouth: oropharynx normal and moist mucous membranes Throat: Yes uvula midline Eyes Pupils: Equal, round and reactive pupils present Neck Neck: Yes normal visual inspection, Yes supple and Yes other (erythematous vesicular rash to left lateral neck) Resp Effort & Inspection: normal respiratory effort and able to speak in complete sentences Auscultation: clear to auscultation bilaterally Cardio Rate: regular rate Rhythm: regular rhythm Heart sounds: S1 normal heart sound present and S2 normal heart sound present GI Palpation (GI): Soft to palpation and nontender Auscultation: normoactive bowel sounds General: Yes no CVA tenderness Back/Spine/Pelvis Back: no CVA tenderness Skin Other: erythematous vesicular rash to left lateral neck, several small erythematous macules to right side of abdomen, right upper leg General skin exam: elasticity normal and turgor normal Neuro General: oriented to person, oriented to place, oriented to time, patient oriented x3, moves all extremities, no focal motor deficits and CN's II-XI intact bilaterally Cranial nerves: Yes Equal, round and reactive pupils present Cognition (Neuro): normal cognition Extrem General: Yes full ROM, Yes no pedal edema and Yes no calf tenderness Psych Mental Status: mental status grossly normal Affect: normal affect Thought process: Normal thought process present Medical Decision Making Medical Decision Making [facility] Narrative: Patient is a 44-year-old female presenting to the ED with complaint of painful burning rash to left side of neck for the past week. On exam patient is awake, A+Ox3, VS WNL, afebrile, normal neurological exam without focal deficits, physical exam findings as above. Given reported symptoms and physical exam findings, initial differential includes but is not limited to herpes zoster, contact dermatitis. No red flag findings concerning for TEN/SJS, DRESS, TTP/DIC, necrotizing fasciitis, meningococcemia, SSSS, TSS, anaphylaxis. Given that the rash to her neck is consistent with zoster even though her additional areas of rash are not, will treat with valacyclovir and also Keflex. Discussed treatment plan with patient who is in agreement. Return precautions discussed. Advised follow up with PCP. Patient verbalized understanding of and agreement with plan. Differential Diagnosis Differential Diagnoses: The differential diagnosis associated with the presentation includes As per [facility] Admission/Observation Consideration of admission/observation: Escalation of care including admission/observation considered Patient would have been admitted to the hospital and transferred to appropriate facility had their clinical presentation warranted hospital admission. External Record Review External record reviewed: Inpatient record, Office record and Outpatient record Prescription Management I considered prescription management with: Antiviral and Antibiotic Discharge Plan Discharge Clinical Impression: Rash and nonspecific skin eruption Patient Disposition: Home, Self-Care Instructions: Shingles (ED), Acute Rash (ED) Additional Instructions: You were evaluated in the emergency department today for a rash. You are being treated for shingles with valacyclovir which is an antiviral medication. You are also being treated with a course of antibiotics, as your rash is somewhat atypical for shingles. Check the areas of rash daily and return to the ED if you develop increased redness, swelling, thick yellow drainage, if you develop a fever 100.4 F or greater, or any other new or concerning symptoms. Prescriptions: New valacyclovir 1 gram tablet 1,000 mg PO TID Qty: 21 0RF cephalexin 500 mg capsule 500 mg PO QID Qty: 28 0RF No Action esomeprazole magnesium 20 mg capsule,delayed release(DR/EC) 20 mg PO DAILY 90 Days Qty: 90 0RF fluoxetine 40 mg capsule 40 mg PO DAILY sumatriptan succinate 100 mg tablet 100 mg PO DIRECTED oxycodone-acetaminophen 5-325 mg tablet 1 tab PO lidocaine 5 % adhesive patch,medicated 1 patch topical DAILY gabapentin 100 mg capsule 100 - 200 mg PO BEDTIME sucralfate [Carafate] 1 gram tablet 2 g PO BID 90 Days Qty: 360 1RF Interventions: ED Discharge Assessment Last Done: 02/25/25 16:37 Print Language: Turkmen
[2025-02-25 16:37] VITALS: BP 98/62; PULSE 76; RESP 18; TEMP 36.4; O2SAT 99
--- OUTSIDE RECORDS SUMMARY | 2025-02-25 17:03 | XMS_ITS | Encounter Summary ---
Author Organization [employer] Address [address] [address] Care Team Providers Care Sales Exec Name Role Phone Kristina Anne MD Primary Care Provider [phone]- [phone] Reason for Visit * Reason Onset Date Comments Med Refill 09/29/2022 Encounter Details Date Type Department Care Team ([facility] st Contact Info) Description 09/29/2022 Telephone [facility] [address] [place] [address] Kristina Anne MD [address] [place] [address] Med Refill Social History Tobacco Use Types [...] Miscellaneous Notes * Telephone Encounter - Fredy Bailonos - 09/29/2022 10:16 AM EDT Tc from pt requesting med refill Oxycodone 5 mg documented in this encounter Plan of Treatment Upcoming Encounters Date Type Department Care Team ([facility] st Contact Info) Description 04/04/2025 9:00 AM EDT Clinical Support [facility] [address] [place] [address] Alayna Ambrosio RN [address] [place] [address] 06/04/2025 9:30 AM EST Clinical Support [facility] [address] [place] [address] documented as of this encounter Visit Diagnoses Not on filedocumented in this encounter Additional Health Concerns Assessment Noted Time PHQ-9 Depression Total Score: 2 07/10/19 23 11:06 AM EST documented as of this encounter Care Teams Sales Exec Relationship Specialty Start Date End Date Kristina Anne MD [address] [place] [address] PCP - General Internal Medicine 06/26/15 documented as of this encounter
--- OUTSIDE RECORDS SUMMARY | 2025-02-25 17:03 | XMS_ITS | Encounter Summary ---
Author Organization [employer] Address [address] [place] [id number] Care Team Providers Care Professor Of Food Biochemistry Name Role Phone Kristina Anne MD Primary Care Provider [phone]- [phone] Encounter Details Date Type Department Care Team ([facility] Contact Info) Description 03/29/2024 Orders Only [facility] [address] [place] [address] Kristina Anne MD [address] [place] [address] Chronic pain syndrome Social History Tobacco Use [...] Upcoming Encounters Date Type Department Care Team ([facility] Contact Info) Description 04/04/2025 9:00 AM EDT Clinical Support [facility] [address] [place], [place] [id number] Alayna Ambrosio, RN [address] [place] [address] 06/04/2025 9:30 AM EST Clinical Support [facility] [address] [place] [address] documented as of this encounter Visit Diagnoses Diagnosis Chronic pain syndrome documented in this encounter Additional Health Concerns Assessment Noted Time PHQ-9 Depression Total Score: 2 07/10/19 23 11:06 AM EST documented as of this encounter Care Teams Professor Of Food Biochemistry Relationship Specialty Start Date End Date Kristina Anne MD [address] [place] [address] PCP - General Internal Medicine 06/26/15 documented as of this encounter
--- OUTSIDE RECORDS SUMMARY | 2025-02-25 17:03 | XMS_ITS | Encounter Summary ---
Author Organization [employer] Address [address] [facility] [address] [place] [address] Care Team Providers Care Biomass Boiler Operator Name Role Phone Kristina Anne MD Primary Care Provider [phone]- [phone] Encounter Details Date Type Department Care Team ([facility] Contact Info) Description 12/28/2024 Orders Only [facility] [address] [place] [address] Enriqueta Brothers MD [address] [place] [address] Social History Tobacco Use Types Packs/Day Years Used Date Smoking Tobacco: Former Cigarettes Passive Smoke Exposure: Never Smokeless Tobacco: Never Comments:Quit smoking 5-6 ye ars ago Alcohol Use Standard Drinks/Week Comments Yes 0 (1 standard drink = 0.6 oz pur e alcohol) once or twice a year Alcohol Answer Date Recorded Q1: How often do you have a drink containing alc ohol? 2 11/29/2024 Q2: How many drinks containi ng alcohol do you have on a typical day when you are drinking? 1 11/29/2024 Q3: How often do you have six or more drinks on one occasion? 2 11/29/2024 Depression Answer Date Recorded Patient Health Questionnaire-9 Score 4 11/29/2024 Patient Health Questionnaire-9 Score 4 11/29/2024 Last PHQ-9: Questionnaire Data Not on file 0 11/29/2024 Housing Stability Answer Date Recorded What is your housing situation today? I have nacho cam 11/22/[address] you li ve. Do you have problems with any of the following? None of the above 11/22/2024 Food Insecurity Answer Date Recorded Within the past 12 months, y ou worried that your food would run out before you got money to buy more: Never True 11/22/2024 Within the past 12 months,th e food you bought just didn't last and you didn't have enough money to get more: Never True Transportation Answer Date Recorded In the past 12 months, has l ack of transportation kept you from medical appts, meetings, work or from getting things needed for daily living? No 11/22/2024 Utilities Answer Date Recorded In the past 12 months, has t he electric, gas, oil or water company threatened to shut off services in your home? No 11/22/2024 Depression Answer Date Recorded Patient Health Questionnaire-2 Score 2 11/29/2024 Internet Access Answer Date Recorded Internet Access Q1 Yes 11/22/2024 Internet Access Q2 Not on file 11/22/2024 Comments No Sex and Gender Information Value Date Recorded Sex Assigned at Female 04/06/2022 10:24 AM EDT Legal Sex Female 10:24 AM EDT Gender Identity Female 04/06/2022 10:24 AM EDT Sexual Orientation Straight 04/06/2022 10 :24 AM EDT documented as of this encounter Plan of Treatment Upcoming Encounters Date Type Department Care Team ([facility] st Contact Info) Description 04/04/2025 9:00 AM EDT Clinical Support [facility] [address] [place] [address] Alayna Ambrosio RN [address] [place] [address] 06/04/2025 9:30 AM EST Clinical Support [facility] [address] [place] [address] documented as of this encounter Visit Diagnoses Not on filedocumented in this encounter Additional Health Concerns Assessment Noted Time PHQ-9 Depression Total Score: 4 11/30/19 11:03 AM EDT documented as of this encounter Care Teams Biomass Boiler Operator Relationship Specialty Start Date End Date Kristina Anne MD [address] [place] [address] PCP - General Internal Medicine 06/26/15 documented as of this encounter
--- OUTSIDE RECORDS SUMMARY | 2025-02-25 17:03 | XMS_ITS | Encounter Summary ---
Author Organization [employer] Address [address] [place] [address] Care Team Providers Care Materials Buyer Name Role Phone Kristina Anne MD Primary Care Provider [phone]- [phone] Reason for Visit * Reason Onset Date Comments Med Refill 02/25/2025 Encounter Details Date Type Department Care Team ([facility] st Contact Info) Description 02/25/2025 Refill [facility]S [address] [place] [address] Kristina Anne MD [address] [place] [address] Chronic pain syndrome Social History Tobacco Use [...] Upcoming Encounters Date Type Department Care Team ([facility] st Contact Info) Description 04/04/2025 9:00 AM EDT Clinical Support [facility] [address] [place] [address] Alayna Ambrosio RN [address] [place] [address] 06/04/2025 9:30 AM EST Clinical Support [facility] [address] [place] [address] documented as of this encounter Visit Diagnoses Diagnosis Chronic pain syndrome documented in this encounter Additional Health Concerns Assessment Noted Time PHQ-9 Depression Total Score: 4 11/30/19 25 11:03 AM EDT documented as of this encounter Care Teams Materials Buyer Relationship Specialty Start Date End Date Kristina Anne MD [address] [place] [address] PCP - General Internal Medicine 06/26/15 documented as of this encounter
--- OUTSIDE RECORDS SUMMARY | 2025-02-25 17:03 | XMS_ITS | Encounter Summary ---
Author Organization [employer] Address [address] [address] Care Team Providers Care Police Judge Name Role Phone Kristina Anne MD Primary Care Provider +1- [phone] Reason for Visit * Reason Onset Date Comments Call Back Request 02/16/2024 Encounter Details Date Type Department Care Team ([facility] st Contact Info) Description 02/16/2024 Telephone [facility] [address] [place] [address] Kristina Anne MD 505 [place] [address] Call Back Request Social History Tobacco Use [...] Upcoming Encounters Date Type Department Care Team ([facility] st Contact Info) Description 04/04/2025 9:00 AM EDT Clinical Support [facility] MED & PEDS 505 [place] [address] Alayna Ambrosio, KARLI 505 [place] [address] 06/04/2025 9:30 AM EST Clinical Support [facility] MED & PEDS 505 [place] [address] documented as of this encounter Visit Diagnoses Not on filedocumented in this encounter Additional Health Concerns Assessment Noted Time PHQ-9 Depression Total Score: 2 07/10/19 23 11:06 AM EST documented as of this encounter Care Teams Police Judge Relationship Specialty Start Date End Date Kristina Anne MD 505 [place] [address] PCP - General Internal Medicine 06/26/15 documented as of this encounter
--- OUTSIDE RECORDS SUMMARY | 2025-02-25 17:03 | XMS_ITS | Encounter Summary ---
Author Organization [employer] Address 75 [facility] 7 [place] [address] Care Team Providers Care Edi Analyst Name Role Phone Kristina Anne MD Primary Care Provider +1- [phone] Reason for Visit * Reason Onset Date Comments Med Refill 01/16/2025 Encounter Details Date Type Department Care Team ([facility] st Contact Info) Description 01/16/2025 Refill [facility] MED & PEDS 505 [place] [address] Kristina Anne MD 505 [place] [address] Chronic bilateral low back pain with bilateral [...] Upcoming Encounters Date Type Department Care Team ([facility] st Contact Info) Description 04/04/2025 9:00 AM EDT Clinical Support [facility] MED & PEDS 505 [place] [address] Alayna Ambrosio RN 505 [place] [address] 06/04/2025 9:30 AM EST Clinical Support [facility] MED & PEDS [address] [place] [address] documented as of this encounter Visit Diagnoses Diagnosis Chronic bilateral low back pain with bilateral sciatica documented in this encounter Additional Health Concerns Assessment Noted Time PHQ-9 Depression Total Score: 4 11/30/19 25 11:03 AM EDT documented as of this encounter Care Teams Edi Analyst Relationship Specialty Start Date End Date Kristina Anne MD [address] [place] [address] PCP - General Internal Medicine 06/26/15 documented as of this encounter
--- OUTSIDE RECORDS SUMMARY | 2025-02-25 17:03 | XMS_ITS | Clinical Summary ---
Author Organization [facility] ity Address [address] [place] [address] Care Team Providers Care International Trade Compliance Manager Name Role Phone Kristina Anne MD Primary Care Provider +1 -[phone] Surgical History Surgery Date Site/Laterality Comments APPENDECTOMY 2004 PROCEDURE: GA APPENDECTOMY CHOLECYSTECTOMY 2009 PROCEDURE: LAPAROSCOPY, CHOLECYSTECTOMY WISDOM [...] 05/09/2022 Social Influencers of Health Screening 05/09/2022 Depression Screening 06/07/2024 COVID-19 Vaccine (1 - 2023-2 5 season) 2025 Influenza Vaccine (#1) 2025 0, 03/15/2019 DTaP,Tdap,and [...] age to complete this topic Care Teams International Trade Compliance Manager Relationship Specialty Start Date End Date Kristina Anne MD [address] [place] [address] [place] PCP - General Internal Medicine 10/20/21
--- OUTSIDE RECORDS SUMMARY | 2025-02-25 17:04 | XMS_ITS | Encounter Summary ---
Author Organization [employer] Address [address] [address] Care Team Providers Care Goodyear Stitcher Name Role Phone Kristina Anne MD Primary Care Provider +1- [phone] Reason for Visit * Reason Onset Date Comments Appointment Request 08/04/2024 Encounter Details Date Type Department Care Team ([facility] Contact Info) Description 08/04/2024 Telephone [facility] MEDICINE [address] [place] [address] Kristina Anne MD 505 [place] [address] Appointment Request Social History Tobacco Use Types [...] Appt Next on 08/09/24. Contact pt at [phone] documented in this encounter Plan of Treatment Upcoming Encounters Date Type Department Care Team ([facility] st Contact Info) Description 04/04/2025 9:00 AM EDT Clinical Support [facility] MED & PEDS 505 [place] [address] Alayna Ambrosio RN 505 [place] [address] 06/04/2025 9:30 AM EST Clinical Support [facility] MED & PEDS 505 [place] [address] documented as of this encounter Visit Diagnoses Not on filedocumented in this encounter Additional Health Concerns Assessment Noted Time PHQ-9 Depression Total Score: 2 07/10/19 23 11:06 AM EST documented as of this encounter Care Teams Goodyear Stitcher Relationship Specialty Start Date End Date Kristina Anne MD 505 [place] [address] PCP - General Internal Medicine 06/26/15 documented as of this encounter
--- OUTSIDE RECORDS SUMMARY | 2025-02-25 17:04 | XMS_ITS | Encounter Summary ---
Author Organization [employer] Address [address] [place] [address] [place] [address] Care Team Providers Care Cripple Worker Name Role Phone Kristina Anne MD Primary Care Provider +1- [phone] Encounter Details Date Type Department Care Team ([facility] Contact Info) Description 06/20/2024 Orders Only [facility] MED & PEDS [address] [place] [address] Kristina Anne MD 505 [place] [address] Herpes genitalis in women (Primary Dx) Social [...] Department Care Team ([facility] Contact Info) Description 04/04/2025 9:00 AM EDT Clinical Support [facility] MED & PEDS [address] [place] [address] Alayna Ambrosio, RN 505 [place] [address] 06/04/2025 9:30 AM EST Clinical Support [facility] MED & PEDS [address] [place] [address] documented as of this encounter Visit Diagnoses Diagnosis Herpes genitalis in women- Primary Unspecified genital herpes documented in this encounter Additional Health Concerns Assessment Noted Time PHQ-9 Depression Total Score: 2 07/10/19 23 11:06 AM EST documented as of this encounter Care Teams Cripple Worker Relationship Specialty Start Date End Date Kristina Anne MD 505 [place] [address] PCP - General Internal Medicine 06/26/15 documented as of this encounter
--- OUTSIDE RECORDS SUMMARY | 2025-02-25 17:04 | XMS_ITS | Encounter Summary ---
Author Organization [employer] Address [address] [place] [address] Care Team Providers Care Analysis Lead Name Role Phone Kristina Anne MD Primary Care Provider +1- [phone] Reason for Referral * Consultation (Routine) - Closed Specialty Diagnoses / Procedures Referred By Contac t Referred To Contact Gastroenterology Diagnoses Encounter for screening colonoscopy Kristina Anne MD 505 [place] [address] Phone: tel: fax: Perri Gregorio MD [address] [place] [address] Phone: tel: fax: Referral ID Status Reason Start Date Expiration Date V isits Requested Visits Authorized [id number] Closed Specialty Services Required 12/20/2023 12/19/2024 1 1 Encounter Details Date Type Department Care Team (Late st Contact Info) Description 12/20/2023 Orders Only [facility] MED & PEDS [address] [place], [place] [phone] Kristina Anne MD 505 [place] [address] Encounter for screening colonoscopy (Primary Dx) Social [...] Care Team (Late st Contact Info) Description 04/04/2025 9:00 AM EDT Clinical Support [facility] MED & PEDS [address] [place] [address] Alayna Ambrosio RN 505 [place] [address] 06/04/2025 9:30 AM EST Clinical Support [facility] MED & PEDS [address] [place] [address] Scheduled Referrals Name Type Priority Associated Diagnoses [...] documented as of this encounter Care Teams Analysis Lead Relationship Specialty Start Date End Date Kristina Anne MD [address] [place] [address] PCP - General Internal Medicine 06/26/15 documented as of this encounter
--- OUTSIDE RECORDS SUMMARY | 2025-02-25 17:04 | XMS_ITS | Encounter Summary ---
Author Organization [employer] Address [address] [address] Care Team Providers Care Game Designer Name Role Phone Kristina Anne MD Primary Care Provider +1- [phone] Reason for Visit * Reason Onset Date Comments Med Refill 12/07/2023 Encounter Details Date Type Department Care Team (Late st Contact Info) Description 12/07/2023 Telephone [facility] MEDICINE [address] [place] [address] Kristina Anne MD 505 [place] [address] Med Refill Social History Tobacco Use Types [...] 5-325 MG tablet To be sent to: [facility]acy #[id number] [place] [address] [facility] documented in this encounter Plan of Treatment Upcoming Encounters Date Type Department Care Team ([facility] st Contact Info) Description 04/04/2025 9:00 AM EDT Clinical Support [facility] MED & PEDS 505 [place] [address] Alayna Ambrosio RN 505 [place] [address] 06/04/2025 9:30 AM EST Clinical Support [facility] MED & PEDS 505 [place] [address] documented as of this encounter Visit Diagnoses Not on filedocumented in this encounter Additional Health Concerns Assessment Noted Time PHQ-9 Depression Total Score: 2 07/10/19 23 11:06 AM EST documented as of this encounter Care Teams Game Designer Relationship Specialty Start Date End Date Kristina Anne MD 505 [place] [address] PCP - General Internal Medicine 06/26/15 documented as of this encounter
--- OUTSIDE RECORDS SUMMARY | 2025-02-25 17:04 | XMS_ITS | Encounter Summary ---
Author Organization [employer] Address 75 [facility] 7 [place] [address] Care Team Providers Care Chemistry Department Chair Name Role Phone Kristina Anne MD Primary Care Provider +1- [phone] Reason for Visit * Reason Comments Med Refill Encounter Details Date Type Department Care Team ([facility] Contact Info) Description 06/23/2022 Refill [facility] MED & PEDS [address] [place] [address] Kristina Anne MD 505 [place] [address] Chronic bilateral low back pain with bilateral [...] Upcoming Encounters Date Type Department Care Team ([facility] Contact Info) Description 04/04/2025 9:00 AM EDT Clinical Support [facility] [address] [place] [address] Alayna Ambrosio, RN 505 [place] [address] 06/04/2025 9:30 AM EST Clinical Support [facility] MED & PEDS [address] [place] [address] documented as of this encounter Visit Diagnoses Diagnosis Chronic bilateral low back pain with bilateral sciatica documented in this encounter Care Teams Chemistry Department Chair Relationship Specialty Start Date End Date Kristina Anne MD 505 [place] [address] PCP - General Internal Medicine 06/26/15 documented as of this encounter
--- OUTSIDE RECORDS SUMMARY | 2025-02-25 17:04 | XMS_ITS | Encounter Summary ---
Author Organization [employer] Address [address] [address] Care Team Providers Care Admitting Counselor Name Role Phone Kristina Anne MD Primary Care Provider +1- [phone] Reason for Visit * Reason Onset Date Comments Appointment Request 01/12/2024 Encounter Details Date Type Department Care Team ([facility] st Contact Info) Description 01/12/2024 Telephone [facility] MEDICINE [address] [place] [address] Kristina Anne MD 505 [place] [address] Appointment Request Social History Tobacco Use Types [facility] Contact Info) Description 04/04/2025 9:00 AM EDT Clinical Support [facility] MED & PEDS 505 [place] [address] Alayna Ambrosio RN 505 [place] [address] 06/04/2025 9:30 AM EST Clinical Support [facility] MED & PEDS 505 [place] [address] documented as of this encounter Visit Diagnoses Not on filedocumented in this encounter Additional Health Concerns Assessment Noted Time PHQ-9 Depression Total Score: 2 07/10/19 23 11:06 AM EST documented as of this encounter Care Teams Admitting Counselor Relationship Specialty Start Date End Date Kristina Anne MD 505 [place] [address] PCP - General Internal Medicine 06/26/15 documented as of this encounter
--- OUTSIDE RECORDS SUMMARY | 2025-02-25 17:04 | XMS_ITS | Clinical Summary ---
Author Organization [facility], Address [address] [address] Phone Care Team Providers Care Ticket Counter Name Role Phone Unavailable Primary Care Provider [...]
--- OUTSIDE RECORDS SUMMARY | 2025-02-25 17:04 | XMS_ITS | Encounter Summary ---
Author Organization [employer] Address [address] [place] [address] Care Team Providers Care Implant Polisher Name Role Phone Kristina Anne MD Primary Care Provider +1- [phone] Reason for Visit * Reason Onset Date Comments Med Refill 12/18/2024 Encounter Details Date Type Department Care Team ([facility] st Contact Info) Description 12/18/2024 Refill [facility] MED & PEDS [address] [place] [address] Kristina Anne MD 505 [place] [address] Chronic pain syndrome Social History Tobacco Use [...] Encounters Date Type Department Care Team ([facility] st Contact Info) Description 04/04/2025 9:00 AM EDT Clinical Support [facility] MED & PEDS [address] [place] [address] Alayna Ambrosio RN 505 [place] [address] 06/04/2025 9:30 AM EST Clinical Support [facility] MED & PEDS [address] [place] [address] documented as of this encounter Visit Diagnoses Diagnosis Chronic pain syndrome documented in this encounter Additional Health Concerns Assessment Noted Time PHQ-9 Depression Total Score: 4 11/30/19 25 11:03 AM EDT documented as of this encounter Care Teams Implant Polisher Relationship Specialty Start Date End Date Kristina Anne MD 505 [place] [address] PCP - General Internal Medicine 06/26/15 documented as of this encounter
--- OUTSIDE RECORDS SUMMARY | 2025-02-25 17:04 | XMS_ITS | Encounter Summary ---
Author Organization [employer] Address [address] [place] [address] Care Team Providers Care Percussion Instrument Tuner Name Role Phone Kristina Anne MD Primary Care Provider +1- [phone] Reason for Visit * Reason Comments Med Refill Encounter Details Date Type Department Care Team ([facility] Contact Info) Description 07/04/2024 Refill [facility] MED & PEDS 505 [place] [address] Kristina Anne MD 505 [place] [address] Social History Tobacco Use Types Packs/Day Years [...] Upcoming Encounters Date Type Department Care Team ([facility] Contact Info) Description 04/04/2025 9:00 AM EDT Clinical Support [facility] MED & PEDS [address] [place] [address] Alayna Ambrosio, RN 505 [place] [address] 06/04/2025 9:30 AM EST Clinical Support [facility] MED & PEDS 505 [place] [address] documented as of this encounter Visit Diagnoses Not on filedocumented in this encounter Additional Health Concerns Assessment Noted Time PHQ-9 Depression Total Score: 2 07/10/19 23 11:06 AM EST documented as of this encounter Care Teams Percussion Instrument Tuner Relationship Specialty Start Date End Date Kristina Anne MD 505 [place] [address] PCP - General Internal Medicine 06/26/15 documented as of this encounter
--- OUTSIDE RECORDS SUMMARY | 2025-02-25 17:04 | XMS_ITS | Encounter Summary ---
Author Organization [employer] Address [address] [place] [address] Care Team Providers Care Welcome Wagon Hostess Name Role Phone Kristina Anne MD Primary Care Provider Reason for Visit * Reason Onset Date Comments Med Refill 04/24/2024 Encounter Details Date Type Department Care Team (Late Contact Info) Description 04/24/2024 Refill [facility] MEDICINE [address] [place] [address] Kristina Anne MD 505 [place] [address] Chronic bilateral low back pain with bilateral [...] Department Care Team (Late Contact Info) Description 04/04/2025 9:00 AM EDT Clinical Support [facility] [address] [place] [address] Alayna Ambrosio, KARLI 505 [place] [address] 06/04/2025 9:30 AM EST Clinical Support [facility] MED & PEDS 505 [place] [address] documented as of this encounter Visit Diagnoses Diagnosis Chronic bilateral low back pain with bilateral sciatica documented in this encounter Additional Health Concerns Assessment Noted Time PHQ-9 Depression Total Score: 2 07/10/19 23 11:06 AM EST documented as of this encounter Care Teams Welcome Wagon Hostess Relationship Specialty Start Date End Date Kristina Anne MD 505 [place] [address] PCP - General Internal Medicine 06/26/15 documented as of this encounter
--- OUTSIDE RECORDS SUMMARY | 2025-02-25 17:04 | XMS_ITS | Encounter Summary ---
Author Organization [employer] Address [address] [place] [address] Care Team Providers Care Desk Operator Name Role Phone Kristina Anne MD Primary Care Provider +1- [phone] Reason for Referral * Imaging (Routine) - Closed Specialty Diagnoses / Procedures Referred By Contac t Referred To Contact Radiology Diagnoses Pelvic pain Procedures US Pelvis Transvaginal Kristina Anne MD 505 [place] [address] Phone: tel: fax: [address] Phone: tel: fax: Referral ID Status Reason Start Date Expiration Date Visits Re quested Visits Authorized [id number] Closed 07/30/2023 07/29/2024 1 1 Encounter Details Date Type Department Care Team (Late st Contact Info) Description 07/28/2023 Orders Only [facility] MED & PEDS [address] [place] [address] Kristina Anne MD 505 [place] [address] Pelvic pain (Primary Dx) Social History Tobacco [...] Upcoming Encounters Date Type Department Care Team ([facility] st Contact Info) Description 04/04/2025 9:00 AM EDT Clinical Support [facility] MED & PEDS [address] [place] [address] Alayna Ambrosio RN 505 [place] [address] 06/04/2025 9:30 AM EST Clinical Support [facility] MED & PEDS [address] [place] [address] Scheduled Orders Name Type Priority Associated Diagnoses [...] PM EST Narrative 08/18/2023 9:48 AM EDT [facility] [address] [place] [address] Mammography Report Signed Patient: Ashley Lucero MR#: [id number] : 1980 Acct:[id number] Age/Sex: 43 / F ADM Date: 08/04/23 Loc: HO.MAMMO Attending Dr: Kristina Anne MD Ordering Physician: Kristina Anne MD Results: 1 Negative Date of Service: 08/04/23 Follow Up: 1 Year From Orig inal Mammogram Procedure(s): MM tomosynthesis diagnostic LT Accession Number(s): [id number] cc: Kristina Anne MD EXAMINATION: MM DIAGNOSTIC [...] MD Signed By: <Electronically signed by Yeison Simth MD in OV> 08/18/23 0944 DD/ 1530 TD/TT: Plant Custodian: Procedure Note Donotuseinterpreter, Image - 08/18/2023 [facility] [address] [place] [address] Mammography Report Signed Patient: Ana Lucero#: [id number] : 1980Acct:[id number] Age/Sex: 43 / FADM Date: 08/04/23 Loc: HO.MAMMO Attending Dr: Kristina Anne MD Ordering Physician: Kristina Anne MDResults: 1 Negative Date of Service: 08/04/23Follow Up: 1 Year From Orig inal Mammogram Procedure(s): MM tomosynthesis diagnostic LT Accession Number(s): [id number] cc: Kristina Anne MD EXAMINATION: MM DIAGNOSTIC [...] in OV> 08/18/23 0944 DD/ 1530 TD/TT: Plant Custodian: us Kristina Anne MD IMG BI PROCEDURES Final Res ult documented in this encounter Visit Diagnoses Diagnosis Pelvic pain- Primary documented in this encounter Additional Health Concerns Assessment Noted Time PHQ-9 Depression Total Score: 2 07/10/19 23 11:06 AM EST documented as of this encounter Care Teams Desk Operator Relationship Specialty Start Date End Date Kristina Anne MD [address] [place] [address] PCP - General Internal Medicine 06/26/15 documented as of this encounter
--- OUTSIDE RECORDS SUMMARY | 2025-02-25 17:04 | XMS_ITS | Encounter Summary ---
Author Organization [employer] Address [address] [address] Care Team Providers Care Sap Director Name Role Phone Kristina Anne MD Primary Care Provider +1- [phone] Reason for Visit * Reason Onset Date Comments Med Refill 07/05/2023 Encounter Details Date Type Department Care Team ([facility] Contact Info) Description 07/05/2023 Refill [facility] MEDICINE [address] [place] [address] Kristina Anne MD 505 [place] [address] Chronic pain syndrome Social History Tobacco Use [...] Care Team ([facility] Contact Info) Description 04/04/2025 9:00 AM EDT Clinical Support [facility] MED & PEDS 505 [place] [address] Alayna Ambrosio, RN 505 [place] [address] 06/04/2025 9:30 AM EST Clinical Support [facility] MED & PEDS 505 [place] [address] documented as of this encounter Visit Diagnoses Diagnosis Chronic pain syndrome documented in this encounter Additional Health Concerns Assessment Noted Time PHQ-9 Depression Total Score: 2 07/10/19 23 11:06 AM EST documented as of this encounter Care Teams Sap Director Relationship Specialty Start Date End Date Kristina Anne MD 505 [place] [address] PCP - General Internal Medicine 06/26/15 documented as of this encounter
--- OUTSIDE RECORDS SUMMARY | 2025-02-25 17:04 | XMS_ITS | Encounter Summary ---
Author Organization [employer] Address [address] [address] Care Team Providers Care Educational Institution Curator Name Role Phone Kristina Anne MD Primary Care Provider +1- [phone] Reason for Visit * Reason Onset Date Comments Med Refill 06/08/2023 Encounter Details Date Type Department Care Team ([facility] st Contact Info) Description 06/08/2023 Telephone [facility] MEDICINE [address] [place] [address] Kristina Anne MD 505 [place] [address] Med Refill Social History Tobacco Use Types [...] 100 MG capsule To be sent to: [id number] - [place] - [address] [facility] documented in this encounter Plan of Treatment Upcoming Encounters Date Type Department Care Team ([facility] st Contact Info) Description 04/04/2025 9:00 AM EDT Clinical Support [facility] MED & PEDS [address] [place] [address] Alayna Ambrosio, KARLI 505 [place] [address] 06/04/2025 9:30 AM EST Clinical Support [facility] MED & PEDS 505 [place] [address] documented as of this encounter Visit Diagnoses Not on filedocumented in this encounter Additional Health Concerns Assessment Noted Time PHQ-9 Depression Total Score: 2 07/10/19 23 11:06 AM EST documented as of this encounter Care Teams Educational Institution Curator Relationship Specialty Start Date End Date Kristina Anne MD [address] [place] [address] PCP - General Internal Medicine 06/26/15 documented as of this encounter
--- OUTSIDE RECORDS SUMMARY | 2025-02-25 17:04 | XMS_ITS | Clinical Summary ---
Author Organization [employer] Address [address] [facility] 7 [place] [address] Care Team Providers Care Manager Field Name Role Phone Kristina Anne MD Primary Care Provider Allergies No known active allergies Medications FLUoxetine (PROzac) 40 MG capsuleIndication s:Depressive disorder Take 1 capsule (40 mg) by mouth Once per day. 90 capsule 2 025 Active SUMAtriptan (Imitrex) 100 MG tabletIndications :Periodic headache syndrome, not intractable Take 1 tablet (100 mg) by mouth 1 (one) time if needed for migraine. 9 tablet 025 Active lidocaine (Lidoderm) 5 % patchIndications: Degeneration of intervertebral disc of lumbar region with discogenic back pain Apply 1 patch topically Once per day. 30 patch 3 025 Active acyclovir (Zovirax) 5 % ointment Apply topically 6 (six) times a day. Space applications every 3 hours. 30 g 025 Active naloxone (Narcan) 4 mg/0.1 mL nasal spray Administer 1 spray (4 mg) into affected nostril(s) if needed for opioid reversal. 2 each 1 025 Active gabapentin (Neurontin) 100 MG capsuleIndication s:Chronic bilateral low back pain with bilateral sciatica TAKE 1 TO 2 CAPSULES BY MOUTH EVERY DAY AT BEDTIME 60 capsule 025 Active oxyCODONE-acetami nophen (Percocet) 5-325 MG tabletIndications :Chronic pain syndrome Take 1 tablet by mouth if needed in the morning and at bedtime for moderate pain for up to 14 days. 28 tablet 025 2024 Active oxyCODONE-acetami nophen (Percocet) 5-325 MG tabletIndications :Chronic pain syndrome Take 1 tablet by mouth if needed in the morning and at bedtime for moderate pain for up to 14 days. 28 tablet 025 2024 Discontinued(R eorder (will not trigger notification to Pharmacy)) oxyCODONE-acetami nophen (Percocet) 5-325 MG tabletIndications :Chronic pain syndrome Take 1 tablet by mouth if needed in the morning and at bedtime for moderate pain for up to 14 days. 28 tablet 025 2024 Discontinued(R eorder (will not trigger notification to Pharmacy)) Active Problems Problem Noted Date Diagnosed Date Colon polyps 11/29/2024 Long-term current use of opiate analgesic 2024 [...] Encounters Date Type Department Care Team Description 02/25/2025 Refill [facility] [address] [place] [address] Kristina Anne MD Chronic pain syndrome 02/11/2025 Refill [facility] [address] [place] [address] Kristina Anne MD Chronic pain syndrome 01/29/2025 9:30 AM EDT Clinical Support [facility] [address] [place] [address] Sheri Garcia, KARLI Encounter for immunization 01/29/2025 Travel 01/29/2025 Refill [facility] [address] [place] [address] Kristina Anne MD Chronic pain syndrome 01/25/2025 Orders Only GENERIC EXTERNAL DATA DEPARTMENT Provider, Generic External Data 01/16/2025 Refill [facility] [address] [place] [address] Kristina Anne MD Chronic bilateral low back pain with bilateral sciatica 01/16/2025 Refill [facility] [address] [place] [address] Kristina Anne MD Chronic bilateral low back pain with bilateral sciatica 01/15/2025 Refill [facility] [address] [place] [address] Kristina Anne MD Depressive disorder; Chronic pain syndrome 01/04/2025 9:00 AM EDT Clinical Support [facility] [address] [place] [address] Alayna Ambrosio RN Chronic pain syndrome 01/04/2025 Refill [facility] [address] [place] [address] Alayna Ambrosio RN 01/04/2025 Travel 01/02/2025 Travel 01/01/2025 Refill [facility] [address] [place] [address] Alexia Wray FNP Chronic pain syndrome 12/28/2024 Orders Only [facility] [address] [place] [address] Enriqueta Brothers MD 12/28/2024 Orders Only [facility] [address] [place] [address] Enriqueta Brothers MD 12/26/2024 Orders Only GENERIC EXTERNAL DATA DEPARTMENT Provider, Generic External Data 12/18/2024 Telephone [facility] [address] [place] [address] Kristina Anne MD Medication Question 12/18/2024 Refill [facility] [address] [place] [address] Kristina Anne MD Chronic pain syndrome 12/12/2024 10:00 AM EDT Procedure Visit [facility] [address] [place] [address] Brook Saldivar MD Cervical cancer screening (Primary Dx) 12/12/2024 Travel 12/04/2024 Refill [facility] [address] [place] [address] Kristina Anne MD Chronic pain syndrome 12/01/2024 Results Follow-Up [facility] [address] [place] [address] Sheri Garcia, KARLI Hepatitis C Antibody with Reflex to HCV, RNA, Quantitative, Real-Time PCR, HIV-1/2 Antigen and Antibodies, Fourth Generation, with Reflexes, CBC auto differential, Additional followed-up results: 3 11/29/2024 10:00 AM EDT Office Visit [facility] [address] [place] [address] Kristina Anne MD Periodic headache syndrome, not intractable (Primary Dx); Annual physical exam; Degeneration of intervertebral disc of lumbar region with discogenic back pain; Dietary counseling; Exercise counseling; Overweight; Encounter for immunization 11/29/2024 Travel 11/28/2024 Travel from Last 3 Months Immunizations Immunization Administration Dates Next Due Hep B, adult 01/29/2025,11/29/2024 Influenza Injectable Quadriv alant Preservative Free IIV4 MDCK 02/13/2020 Influenza injectable quadrivalent preservative f ree 03/15/2019 Tdap 05/29/2020 Family History Medical History Relation Name Comments Diabetes type II Father Hypertension Father Colon cancer Mother Asthma Sister COPD Sister Relation Name Status Comments Father Mother Sister Social History Tobacco Use Types Packs/Day Years Used Date Smoking Tobacco: Former Cigarettes Passive Smoke Exposure: Never Smokeless Tobacco: Never Tobacco Cessation:Counseling Given: Not Answered Comments:Quit smoking 5-6 years ago Alcohol Use Standard Drinks/Week Comments Yes [...] Sign Reading Time Taken Comments Blood Pressure 118/75 12/12/2024 9:51 AM EDT Pulse 80 12/12/2024 9:51 AM EDT Temperature 36.9 C (98.4 F) 12/12/2024 9:51 AM EDT Respiratory Rate 16 12/12/2024 9:51 AM EDT Oxygen Saturation 99% 12/12/2024 9:51 AM EDT Inhaled Oxygen Concentration - - Weight 68.9 kg (152 lb) 12/12/2024 9:51 AM EDT Height 162.6 cm (5' 4 ) 12/12/2024 9:51 AM EDT Body Mass Index 26.09 12/12/2024 9:51 AM EDT Plan of Treatment Upcoming Encounters Date Type Department Care Team ([facility] st Contact Info) Description 04/04/2025 9:00 AM EDT Clinical Support [facility] [address] [place] [address] Alayna Ambrosio, RN [address] [place] [address] 06/04/2025 9:30 AM EST Clinical Support [facility] [address] [place] [address] Health Maintenance Due Date Last Done Comments Family Planning (PISQ) 1997 HPV Vaccines (1 - 3-dose series) 1997 COVID-19 Vaccine ( - 2023-2 5 season) 2025 Influenza Vaccine (#1) 2025 , 03/15/2019 Hepatitis B Vaccines (3 of 3 - 19+ 3-dose series) 05/31/2025 01/29/2025, 11/29/2024 Mammogram 08/04/2025 08/04/2023, 05/17/2023 Disability Screening 08/16/2025 08/16/2024 SDOH Screening 11/22/2025 11/22/2024 Alcohol/Substance Use Screening 11/29/2025 11/29/2024 Depression Screening 11/29/2025 11/29/2024, 11/29/2024 Tobacco Screening 12/12/2025 12/12/2024 Cervical Cancer Screening 12/12/2029 HPV/Cotest 12/12/2029 04/05/2018 Pap Smear 12/12/2029 12/12/2024 DTaP/Tdap/Td Vaccines (2 - T d or Tdap) 05/29/2030 05/29/2020 Zoster Vaccines (1 of 2) 2032 RSV Patients and Patients Aged 60 years or older (1 - 1-dose 75+ series) 2057 HIV Screening Completed 11/30/2024 Hepatitis C Screening Completed 11/30/2024 HIB Vaccines Aged Out No longer eligi [...] Years) and At-Risk Patients (6 to 49) Years Aged Out No longer eligible b ased on patient's age to complete this topic RSV under 20 months Aged Out No longe r eligible based on patient's age to complete this topic Rotavirus Vaccines Aged Out No longer eligible based on patient's age to complete this topic Procedures Procedure Name Priority Date/Time Associated Diagnosis Comments HEMATOXYLIN AND EOSIN STAIN Routine 01/25/2025 10:51 AM EDT HCG, QL, URINE Routine 01/25/2025 9:05 AM EDT POCT PK-14 URINE DRUG SCREEN Routine 01/04/2025 9:15 AM EDT Chronic pain syndrome HCG, QL, URINE Routine 12/26/2024 1:13 PM EDT HCG, TOTAL, QN Routine 12/26/2024 1:13 PM EDT COMPREHENSIVE METABOLIC PANEL Routine 12/26/2024 1:13 PM EDT CBC WITH AUTO DIFFERENTIAL Routine 12/26/2024 1:13 PM EDT URINALYSIS, COMPLETE, WITH REFLEX TO CULTURE Routine 12/26/2024 1:13 PM EDT CULTURE, URINE, ROUTINE Routine 12/26/2024 12:00 AM EDT PAP SMEAR Routine 12/12/2024 10:18 AM EDT Cervical cancer screening TSH W/REFLEX TO FT4 Routine 11/30/2024 8 :07 AM EDT Annual physical exam LIPID PANEL, STANDARD Routine 11/30/2024 8:07 AM EDT Annual physical exam COMPREHENSIVE METABOLIC PANEL Routine 11/30/2024 8:07 AM EDT Annual physical exam CBC WITH AUTO DIFFERENTIAL Routine 11/30/2024 8:07 AM EDT Annual physical exam HIV 1/2 ANTIGEN/ANTIBODY, FOURTH GENERATION W/RFL Routine 11/30/2024 8:07 AM EDT Annual physical exam HEPATITIS C AB W/REFL TO HCV RNA, QN, PCR Routine 11/30/2024 8:07 AM EDT Annual physical exam BI MAMMOGRAM DIAGNOSTIC TOMOSYNTHESIS LEFT Routine 08/04/2023 3:30 PM EST ZZZ HISTORICAL HPV MRNA E6/E7 Routine 04/05/2018 4:37 PM EDT from Last 3 Months or Most Recently Relevant to Health Maintenance Results * Hematoxylin and Eosin Stain (01/25/2025 10:51 AM EDT) 01/25/2025 10:5 1 AM EDT 01/25/2025 11:20 AM EDT [facility] - 01/26/2025 1:57 PM EDT ----- ------- Name: Ashley Lucero Age/Sex: 44/F : 1980 Unit#: [id number] Attend Dr: Radha Zhong MD Re01/25/25 Status: [facility] Location: [facility] Disch: ----- ------- SPEC : [id number] RECD: 01/25/25-112 STATUS: MANUEL QURESHIAlyssa NUM: [id number] NAVEEN: 01/25/25-[address] [facility] [address]: Radha Zhong MD ENTERED: 01/25/25-1130 SP TYPE: Surgical OTHR DR: Kristina Anne MD ORDERED: HE Stain/6, Gross Micro L4/2, IHC, Special st. 2/2, H. pylori, AB/PAS/2 Diagnosis A. Stomach, antrum, biopsy: Gastric antral mucosa with reactive gastropathy; negative for Helicobacter pylori, intestinal metaplasia and dysplasia. B. Stomach, body, biopsy: Gastric body mucosa within normal limits; negative for Helicobacter pylori, intestinal metaplasia and dysplasia. Clinical History Pre-Op Dx: Gastritis, family hx of colon ca Post-Op Dx: Gastritis, hemorrhoids Microscopic Description A-B. Microscopic sections examined. No metaplastic changes are seen, supported by AB/PAS stains (A-B); no Helicobacter organisms are seen, supported by H. pylori immunostain (A). Material Received A. Gastric antrum B. Gastric body Gross Description Received in two parts. Part A: Received in formalin labeled gastric antrum are four agee-pink irregular and rectangular tissue fragments ranging from 0.1-0.4 cm, submitted in toto in a cassette labeled A. Part B: Received in formalin labeled gastric body are three agee-pink irregular tissue fragments ranging from 0.2-0.3 cm, submitted in toto in a cassette labeled B. CEDS Special stains ordered and performed: AB/PAS on A-B; immunostain for H. pylori on A. IHC S/NG Disclaimer NOTE: Unless otherwise stated, all tissue is formalin-fixed and paraffin-embedded. Some or all of the immunohistochemical tests reported herein may have been developed and their performance characteristics determined by [facility]. They have not been cleared or approved by the U.S. Food and Drug Administration (FDA). However, the FDA CONTINUED ON NEXT PAGE ----- ------- Name: Ashley Lucero Age/Sex: 44/F : 1980 Unit#: [id number] Attend Dr: Radha Zhong MD Re01/25/25 Status: [facility] Location: [facility] Disch: ----- ------- SPEC : [id number] RECD: 01/25/25-1120 STATUS: MANUEL RESTREPO NUM: [id number] NAVEEN: 01/25/25-[address]: Radha Zhong MD ENTERED: 01/25/25-1130 SP TYPE: Surgical OTHR DR: Kristina Anne MD ORDERED: HE Stain/6, Gross Micro L4/2, IHC, Special st. 2/2, H. pylori, AB/PAS/2 IHC S/NG Disclaimer (Continued) has determined that such clearance or approval is not necessary. This laboratory is certified under the Clinical Laboratory Improvement Amendments of 1988 (CLIA) as qualified to perform high complexity clinical laboratory testing. Copies To: Kristina Anne MD [address] [id number] Radha Zhong MD [facility] [place] [facility] [address] [place] [address] [phone] [email or web address] ----- ------- Signed (signature on file) Leeann Gonzalez MD 01/26/25 1357 ----- ------- END OF REPORT us Generic External Data Provider LAB BLOOD ORDERAB LES Final Result [facility] [address] [place], [place] [phone] * HCG, Qualitative, Urine (01/25/2025 9:05 AM EDT) Only the most recent of2 resultswithin the time period is included. Urine NEGATIVE NEGATIVE [facility] Comment:This test was develo ped to detect early . Falsenegative results may occur after the 5th - 7th week ofpregnancy when using this test method. If clinicallyindicated, consider a serum hCG. 01/25/2025 9:05 AM EDT 01/25/2025 9:13 AM EDT us Generic External Data Provider LAB URINE ORDERAB LES Final Result [facility] [address] [place] [phone] * (ABNORMAL) POCT PK-14 Urine Drug Screen (01/04/2025 9:15 AM EDT) THC Negative Negative Cocaine Screen, Urine Negative Negative Opiate Screen, Urine Negative Negative Methamphetamine Screen Urine Negative Negative Amphetamine Screen, Urine Negative Negative Benzodiazepines Screen, Urine Negative Negative Barbiturate Screen, Urine Negative Negative Methadone Screen, Urine Negative Negative Buprenophine Screen, Urine Negative Negative TCA, Urine Negative Negative MDMA Urine Negative Negative ng/mL Oxycodone Screen, Urine Positive Negative Phencyclidine (PCP), Urine Negative Negative Propoxyphene, Urine Negative Negative Fentanyl, Urine Negative Negative Urine Urine specimen obtained by clean catch procedure / Unknown 01/04/2025 9:15 AM EDT Narrative Alayan Ambrosio RN - 01/04/2025 9:15 AM EDT Internal Pass Control Lot# [id number] Exp: 04-06-26 us Kristina Anne MD POINT OF CARE TEST ENTER/ED IT ORDERABLES Final Result * (ABNORMAL) Urinalysis, Complete, with Reflex to Culture (12/26/2024 1:13 PM EDT) Color Urine Yellow [facility] Appearance Urine Clear [facility] PH 7.5 5.0 - 9.0 [facility] Glucose Urine UA Negative Negative mg/dL [facility] Urine Blood Negative Negative [facility] Specific [place] - Urine 1.020 1.005 - 1.025 [facility] Urine Protein Trace Neg-Trace mg/dL [facility] Urine Ketones Trace Negative mg/dL [facility] Nitrite Urine Negative Negative [facility] Leukocyte Esterase Urine Moderate (2+)(A) Negative [facility] RBC Urine 0-2 0 - 2 /HPF [facility] Urine WBC 21-50 0 - 5 /HPF [facility] Urine Squamous Epithelial Cell 3-5 0 - 2 /HPF [facility] Urine Bacteria 1+ None Seen [facility] Hyaline Casts, Urine 0-2 0 - 2 /LPF [facility] 12/26/2024 1:13 PM EDT 12/26/2024 1:23 PM EDT Narrative [facility] - 12/26/2024 1:55 PM EDT [id number], Clean Catch us Generic External Data Provider LAB URINE ORDERAB LES Final Result [facility] [address] [place] [phone] * (ABNORMAL) CBC auto differential (12/26/2024 1:13 PM EDT) Only the most recent of2 resultswithin the time period is included. White Blood Count 6.3 4.8 - 10.8 X10*3/uL [facility] Red Blood Count 4.13(L) 4.20 - 5.50 X10*6/uL [facility] Hemoglobin 12.4 12.0 - 16.0 g/dl [facility] Hematocrit 36.0(L) 37.0 - 47.0 % [facility] Mean Corpuscular Volume 87.2 80.0 - 98.0 fL [facility] Mean Corpuscular Hemoglobin 30.0 27.0 - 33.0 pg [facility] Mean Corpuscular HGB Conc 34.4 31.0 - 35.0 g/dl [facility] Red Cell Distribution Width 12.1 11.0 - 16.0 % [facility] Platelet Count 225 160 - 400 X10*3/uL [facility] Mean Platelet Volume 9.2(L) 9.4 - 12.3 fL [facility] Neutrophils Percent Auto 65.0 45 - 73 % [facility] Imm Gran Pct Auto 0.3 0.0 - 0.4 % [facility] Lymphocytes Percent Auto 26.9 20 - 40 % [facility] Monocytes Percent Auto 6.7 2 - 11 % [facility] Eosinophils Percent Auto 0.6 0 - 4 % [facility] Basophils Percent Auto 0.5 0 - 2 % [facility] NRBC Pct Auto 0.0 0.0 - 0.2 /100WBC [facility] Neutrophils Absolute Auto 4.1 2.0 - 8.3 x10*3/uL [facility] Imm Gran Abs Auto 0.02 0.00 - 0.03 X10*3/uL [facility] Lymphocytes Absolute Auto 1.7 1.2 - 4.9 X10*3/uL [facility] Monocytes Absolute Auto 0.4 0.1 - 1.2 X10*3/uL [facility] Eosinophils Absolute Auto 0.0 0.0 - 0.4 X10*3/uL [facility] Basophils Absolute Auto 0.0 0.0 - 0.2 X10*3/uL [facility] NRBC Abs Auto 0.000 0.0 - 0.012 X10*3/uL [facility] 12/26/2024 1:13 PM EDT 12/26/2024 1:23 PM EDT us Generic External Data Provider LAB BLOOD ORDERAB LES Final Result [facility] [address] [place] [phone] * hCG, Total, Quantitative (12/26/2024 1:13 PM EDT) HCG Quantitative <2 mIU/mL [facility] Comment:Weeks post LMP Appr oximate hCG(Last Menstrual Period) Range (mIU/ml)3 - 4 weeks 9 - 1304 - 5 weeks 75 - 2,6005 - 6 weeks 850 - 20,8006 - 7 weeks 4000 - 100,2007 - 12 weeks 11,500 - 289,47553 - 16 weeks 18,300 - 137,68582 - 29 weeks (2nd trimester) 1,400 - 53,52492 - 41 weeks (3rd trimester) 940 - 60,000The Johnson B- hCG assay is used for the early detection ofpregnancy; it cannot be used to diagnose any conditionunrelated to . If a B-hCG level is not supportedby the clinical evidence, results should be confirmed by analternative method (qualitative urine hCG, for example). 12/26/2024 1:13 PM EDT 12/26/2024 1:23 PM EDT us Generic External Data Provider LAB BLOOD ORDERAB LES Final Result [facility] [address] [place] [phone] * (ABNORMAL) Comprehensive Metabolic Panel (12/26/2024 1:13 PM EDT) Only the most recent of2 resultswithin the time period is included. Sodium 140 135 - 145 mmol/L [facility] Potassium 3.9 3.3 - 5.1 mmol/L [facility] Chloride 106 96 - 108 mmol/L [facility] Carbon Dioxide 26 22 - 29 mmol/L [facility] Anion Gap 12 12 - 20 [facility] Urea Nitrogen (BUN) 10 9 - 16 mg/dL [facility] Creatinine, Serum 1.09 0.5 - 1.4 mg/dL [facility] Creatinine Clr Calc Pharmacy 63.5 [facility] Comment:Provided height and weight: 162.56 cm,67.7 kg.eGFR (calculated from the MDRD study equation) and eCrCl(calculated from the Cockcroft-Gault equation) are based ondifferent parameters and may not yield comparable results.If eCrCl result is absurd, please check patient'sheight/weight. Estimated Glomerular Filt Rate 55 [facility] Comment:Chronic Kidney Disea se: Estimated GFR < 60 mL/min/1.70w6Phmhhx Kidney Disease: Estimated GFR < 15 mL/min/1.73m2 Glucose 101 60 - 115 mg/dL [facility] Calcium 8.7 8.4 - 10.2 mg/dL [facility] Bilirubin, Total 2.3(H) 0.0 - 1.0 mg/dL [facility] Comment:Slight Icterus. Aspartate Amino Transferase 23 5 - 31 U/L [facility] Alanine Aminotransferase 18 0 - 31 U/L [facility] Total Protein 7.1 6.5 - 8.0 g/dL [facility] Albumin Level 4.3 3.5 - 5.0 g/dL [facility] Alkaline Phosphatase 42 39 - 117 U/L [facility] 12/26/2024 1:13 PM EDT 12/26/2024 1:23 PM EDT us Generic External Data Provider LAB BLOOD ORDERAB LES Final Result [facility] [address] [place] [phone] * Culture, Urine, Routine (12/26/2024 12:00 AM EDT) Urine Urine specimen obtained by clean catch procedure / Unknown 12/26/2024 12/26/2024 Comment:UACC Narrative [facility] - 12/28/2024 7:41 AM EDT Escherichia coli Quant > 100,000 cfu/mL Escherichia coli: Ampicillin <=2(S) Escherichia coli: Cefazolin (Urine) <=1(S) Escherichia coli: Cefepime <=0.12(S) Escherichia coli: Ceftriaxone <=0.25(S) Escherichia coli: Ciprofloxacin <=0.06(S) Escherichia coli: Gentamicin <=1(S) Escherichia coli: Nitrofurantoin <=16(S) Escherichia coli: Trimethoprim/Sulfamethoxazole <=20(S) Specimen Source: Urine clean catch us Generic External Data Provider LAB MICROBIOLOGY - GENERAL ORDERABLES Final Result Performing Organization Address City/State/[facility] Co de Phone Number [facility] [address] [place] [phone] * Pap Smear (12/12/2024 10:18 AM EDT) Swab 12/12/2024 10:1 8 AM EDT 12/13/2024 8:30 AM EDT Narrative [facility] - 12/15/2024 12:54 PM EDT ----- ------- Name: Ashley Lucero Age/Sex: 44/F : 1980 Unit#: [id number] Attend Dr: Brook Saldivar MD Re12/12/24 Status: DEP REF Location: [facility].CHCLNP Disch: ----- ------- SPEC : [id number] RECD: 12/13/24 STATUS: MANUEL RESTREPO NUM: [id number] NAVEEN: 12/12/24-[address] [facility] [address]: Brook Saldivar MD ENTERED: 12/13/24 SP TYPE: Pap Smr PIPPA AVERY: ORDERED: Pap Smear Interpretation Satisfactory for evaluation. Negative for intraepithelial lesion or malignancy. Clinical Information LMP: Unknown date Previous PAP test: Unknown date/findings Other history: Cervical cancer screening Material Received ThinPrep-Cervical PAP Disclaimer As of March 29, 2024, the technical services to include automated prescreening performed by the ThinPrep Imaging System, PAP screening and HPV testing will be performed at [facility] (CLIA #[id number]), [address] [place] [address]. Testing for HPV was performed using the [employer] system. The presence of HPV in the female genital tract is associated with a number of diseases, including cervical carcinoma. The HPV DNA high risk pool tests for HPV 31, 33, 35, 39, 45, 51, 52, 56, 58, 59, 66 and 68. The testing for HPV 16 and 18 genotypes has also been performed. A positive result indicates detection of nucleic acid sequences from one or more subtypes, whereas a negative result indicates such sequences were not detected. All professional services are performed by [facility] ([address] [place] [address]; ; CLIA #[id number]). The PAP Test is a screening procedure with the inherent possibility of both false negative and false positive results. Results should be interpreted in the context of historic and current clinical findings. Reliability of the PAP Test is enhanced by performing the test on a regular repetitive basis. ----- ------- Signed (signature on file) RAMONE Mckoy (ASCP) 12/15/24 1254 ----- ------- END OF REPORT Brook Saldivar MD LAB CYTOLOGY ORDERABLES Final Result Performing Organization Address [facility] de Phone Number [facility] [address] [place] [phone] * TSH W/Reflex to FT4 (11/30/2024 8:07 AM EDT) TSH reflex Free T4 1.36 0.32 - 4.0 uIU/mL [facility] Blood Venous blood specimen / Unknown 11/30/2024 8:07 AM EDT 11/30/2024 8:07 AM EDT us Kristina Anne MD LAB BLOOD ORDERABLES Final Result Performing Organization Address [facility] de Phone Number [facility] [address] [place] [phone] * Hepatitis C Antibody with Reflex to HCV, RNA, Quantitative, Real-Time PCR (11/30/2024 8:07 AM EDT) Hepatitis C Antibody Nonreactive Nonreactive [facility] Comment:Antibodies to HCV no t detected; does not exclude early acuteHCV infection. Blood Venous blood specimen / Unknown 11/30/2024 8:07 AM EDT 11/30/2024 8:07 AM EDT Kristina Anne MD LAB BLOOD ORDERABLES Final Result Performing Organization Address [facility] de Phone Number [facility] [address] [place] [phone] * HIV-1/2 Antigen and Antibodies, Fourth Generation, with Reflexes (11/30/2024 8:07 AM EDT) HIV AB/AG Nonreactive Nonreactive [facility] Comment:HIV-1 p24 Ag and/or HIV-1/HIV-2 Ab not detected.A test result that is nonreactive does not exclude thepossibility of exposure to or infection with HIV-1 and/orHIV-2. Nonreactive results in this assay for individualswith prior exposure to HIV-1 and/or HIV-2 may be due toantigen and antibody levels that are below the limit ofdetection of this assay.The [employer] HIV Ag/Ab Combo assay result andsupplemental assay results should be interpreted inconjunction with the patient's clinical presentation,history and other laboratory results. If the results areinconsistent with clinical evidence, additional testing issuggested to confirm the result. Blood Venous blood specimen / Unknown 11/30/2024 8:07 AM EDT 11/30/2024 8:07 AM EDT us Kristina Anne MD LAB BLOOD ORDERABLES Final Result [facility] [address] [place] [address] [phone] * (ABNORMAL) Lipid Panel, Standard (11/30/2024 8:07 AM EDT) Triglycerides 100 <150 mg/dL [facility] Comment:Desirable Triglyceri de: less than 150 mg/dLBorderline High Triglyceride 150-199 mg/dLHigh Triglyceride: 200-499 mg/dLVery High Triglyceride: greater than or equal to 5OO mg/dL Cholesterol 198 <200 mg/dL [facility] Comment:Desirable Cholestero l: less than 200 mg/dLBorderline High Cholesterol: 200-239 mg/dLHigh Cholesterol: greater than 239 mg/dL LDL Cholesterol Calculated 124(H) <100 mg/dL [facility] Comment:Desirable LDL: less than 100 mg/dLNear Optimal/Above Optimal LDL: 110- 129 mg/dLBorderline High LDL: 130-159 mg/dLHigh LDL: 160-189 mg/dLVery High LDL: greater than or equal to 190 mg/dL HDL Cholesterol 54 >40 mg/dL [facility] Comment:Desirable HDL: great er than 40 mg/dL Note: This HDL assay may give artificially low results in patients with liver disease. Blood Venous blood specimen / Unknown 11/30/2024 8:07 AM EDT 11/30/2024 8:07 AM EDT Kristina Anne MD LAB BLOOD ORDERABLES Final Result [facility] [address] [place] [phone] [phone] * BI Mammogram Diagnostic Tomosynthesis Left (08/04/2023 3:30 PM EST) Anatomical Region Laterality Modality Breast Left Mammography 08/04/2023 3:30 PM EST Narrative 08/18/2023 9:48 AM EDT [facility] [address] [place] [address] Mammography Report Signed Patient: Ashley Lucero MR#: [id number] : 1980 Acct:[id number] Age/Sex: 43 / F ADM Date: 08/04/23 Loc: HO.MAMMO Attending Dr: Kristina Anne MD Ordering Physician: Kristina Anne MD Results: 1 Negative Date of Service: 08/04/23 Follow Up: 1 Year From [facility] ina Mammogram Procedure(s): MM tomosynthesis diagnostic LT Accession Number(s): [id number] cc: Kristina Anne MD EXAMINATION: MM DIAGNOSTIC [...] in OV> 08/18/23 0944 DD/ 1530 TD/TT: Records Analyst: Procedure Note Donotuseinterpreter, Image - 08/18/2023 [facility] [address] [place], [place] [address] Mammography Report Signed Patient: Ashley LuceroMR#: [id number] : 1980Acct:[id number] Age/Sex: 43 / FADM Date: 08/04/23 Loc: HO.MAMMO Attending Dr: Kristina Anne MD Ordering Physician: Kristina Anne MDResults: 1 Negative Date of Service: 08/04/23Follow Up: 1 Year From [facility] Mammogram Procedure(s): MM tomosynthesis diagnostic LT Accession Number(s): [id number] cc: Kristina Anne MD EXAMINATION: MM DIAGNOSTIC [...] in OV> 08/18/23 0944 DD/ 1530 TD/TT: Records Analyst: us Kristina Anne MD IMG BI PROCEDURES Final Res ult * HPV mRNA E6/E7 (04/05/2018 4:37 PM EDT) HPV mRNA E6/E7 Not Detected NOT DETECTED [facility] Comment: This test was performed using the APTIMA(R) HPV Assay ([employer] This assay detects E6/E7 viral messenger RNA (mRNA) from 14 high-risk HPV types (16,18,31,33,35,39,45,51, 52,56,58,59,66,68). For additional information please refer to: http://education.Jamba!.Linqia/faq/FHS521m2 (This link is being provided for informational/ educational purposes only.) The analytical performance characteristics of this assay have been determined by [employer] [place], [place]. The modifications have not been cleared or approved by the FDA. This assay has been validated pursuant to the CLIA regulations and is used for clinical purposes. Test Performed by [facility], [employer] [facility], [address] [place] [address] Marcus Farmer M.D., Ph.D., Director of Laboratories , [facility] [id number] Please note: Effective 02/17/2016, HPV testing will be performed using [employer]'s APTIMA test which targets mRNA. Detecting mRNA instead of DNA, as in older methods, offers significant improvements in specificity. 04/05/2018 4:37 PM EDT us Gely Feliciano CNM HISTORICAL/NON ORDERABLE LABS Final Result [facility] Replaced by [facility] [address] from Last 3 Months or Most Recently Relevant to Health Maintenance Insurance [facility] [id number] 3 [facility] Address: [address] [address] Care Teams Manager Field Relationship Specialty Start Date End Date Kristina Anne MD [address] [place] [phone] PCP - General Internal Medicine 06/26/15
== END 2025-02-25 17:03 | disposition home or self-care (01) ==
LOC: HO.ED 17:01
PROVIDERS: Emergency Provider Student in an Organized Health Care Education/Training Program; PCP Internal Medicine
DX: R21 Rash and other nonspecific skin eruption (principal); Z79.899 Other long term (current) drug therapy
CPT/HCPCS: 99282; 99283

== ENCOUNTER 2025-02-27 14:35 | Outpatient (REF) | payer OTHER, SELFPAY ==
--- OUTSIDE RECORDS SUMMARY | 2025-02-27 13:40 | XMS_ITS | Encounter Summary ---
Author Organization [employer] Address [address] [facility] 7 [place] [address] Care Team Providers Care Wave Solder Offbearer Name Role Phone Kristina Anne MD Primary Care Provider [phone]- [phone] Encounter Details Date Type Department Care Team ([facility] st Contact Info) Description 02/27/2025 1:40 PM EDT Office Visit [facility] [address] [place], [place] [phone] Kristina Anne MD [address] [place] [address] Dermatitis (Primary Dx) Social History Tobacco Use Types [...] AM EDT documented as of this encounter Last Filed Vital Signs Vital Sign Reading Time Taken Comments Blood Pressure 114/65 02/27/2025 1:30 PM EDT Pulse 74 02/27/2025 1:30 PM EDT Temperature 36.5 C (97.7 F) 02/27/2025 1:30 PM EDT Respiratory Rate 20 02/27/2025 1:30 PM EDT Oxygen Saturation 98% 02/27/2025 1:30 PM EDT Inhaled Oxygen Concentration - - Weight 67.6 kg (149 lb) 02/27/2025 1:30 PM EDT Height 162.6 cm (5' 4 ) 02/27/2025 1:30 PM EDT Body Mass Index 25.58 02/27/2025 1:30 PM EDT documented in this encounter Progress Notes * Kristina Anne MD - 02/27/2025 1:40 PM EDT SUBJECTIVE Ashley Nic is a 44 y.o. female who presents for No chief complaint on file.. HPI Patient with history of herpes here complaining of a skin rash located on the neck the right side of the abdomen, 1 lesion around the umbilicus and some other noted lesion of the thighs bilaterally. No sick contact. No fever or other constitutional symptoms. The symptoms started about 10 days ago and is associated with discomfort of the neck the abdomen and the thighs. Patient denies any chayo burning sensation. Had a blister of the lesion around the umbilicus. Problem List[1] Allergies[2] Medications Ordered Prior to Encounter[3] Review of Systems Constitutional: Negative for appetite change, chills and diaphoresis. Respiratory: Negative for cough, choking and shortness of breath. Cardiovascular: Negative for leg swelling. Gastrointestinal: Negative for constipation, diarrhea and nausea. Musculoskeletal: Negative for gait problem and joint swelling. Skin: Positive for rash. OBJECTIVE Vitals: 02/27/25 1330 BP: 114/65 BP Location: Left arm Patient Position: Sitting BP Cuff Size: Adult Pulse: 74 Resp: 20 Temp: 97.7 ??F (36.5 ??C) TempSrc: Oral SpO2: 98% Weight: 149 lb (67.6 kg) Height: 5' 4 (1.626 m) Physical Exam Constitutional: General: She is not in acute distress. Appearance: Normal appearance. She is not ill-appearing, toxic-appearing or diaphoretic. Pulmonary: Effort: Pulmonary effort is normal. Skin: Comments: Polygonal and slightly raised erythematous patches of the left side of the neck A similar lesion is noted on the right upper quadrant of the abdomen 3 x 3 mm erythematous and erosive lesion of the periumbilical area Multiple slightly raised round erythematous papules of the upper thighs bilaterally. Neurological: Mental Status: She is alert. Assessment/Plan Assessment/Plan Diagnoses and all orders for this visit: Dermatitis Comments: Unclear etiology: Possible drug eruption, possible folliculitis, herpes zoster very unlikely Symptomatic treatment recommended for now Labs ordered. Patient will be contacted with results. Orders: - RPR (Monitor) with Reflex to Titer; Future - CBC auto differential; Future - HIV-1/2 Antigen and Antibodies, Fourth Generation, with Reflexes; Future - fexofenadine (Kell) 180 MG tablet; Take 1 tablet (180 mg) by mouth if needed each day (Allergies). - Chlorhexidine Gluconate (Hibiclens) 4 % solution; Rinse area with water, then cover affected skin, wash gently. Rinse again thoroughly. - Herpes Simplex Virus 1 and 2 (IgG), Type-Specific Antibodies; Future [1] Patient Active Problem List Diagnosis Chronic low back pain Degeneration of lumbar intervertebral disc Depressive disorder Diarrhea Fatigue Gastroesophageal reflux disease Generalized abdominal pain Migraine Sinusitis Anxiety Acute right-sided low back pain with right-sided sciatica Intractable headache Long-term current use of opiate analgesic Colon polyps [2] No Known Allergies [3] Current Outpatient Medications on File Prior to Visit Medication Sig Dispense Refill acyclovir (Zovirax) 5 % ointment Apply topically 6 (six) times a day. Space applications every 3 hours. 30 g 0 FLUoxetine (PROzac) 40 MG capsule Take 1 capsule (40 mg) by mouth Once per day. 90 capsule 2 gabapentin (Neurontin) 100 MG capsule TAKE 1 TO 2 CAPSULES BY MOUTH EVERY DAY AT BEDTIME 60 capsule0 lidocaine (Lidoderm) 5 % patch Apply 1 patch topically Once per day. 30 patch 3 naloxone (Narcan) 4 mg/0.1 mL nasal spray Administer 1 spray (4 mg) into affected nostril(s) if needed for opioid reversal. 2 each 1 oxyCODONE-acetaminophen (Percocet) 5-325 MG tablet Take 1 tablet by mouth if needed in the morning and at bedtime for moderate pain for up to 14 days. 28 tablet 0 SUMAtriptan (Imitrex) 100 MG tablet Take 1 tablet (100 mg) by mouth 1 (one) time if needed for migraine. 9 tablet 0 [DISCONTINUED] oxyCODONE-acetaminophen (Percocet) 5-325 MG tablet Take 1 tablet by mouth if needed in the morning and at bedtime for moderate pain for up to 14 days. 28 tablet 0 No current facility-administered medications on file prior to visit. documented in this encounter Plan of Treatment Upcoming Encounters Date Type Department Care Team (Late st Contact Info) Description 04/04/2025 9:00 AM EDT Clinical Support [facility] [address] [facility] [place] [address] Alayna Ambrosio, RN [address] [facility] [place] [address] 06/04/2025 9:30 AM EST Clinical Support [facility] [address] [place] [address] Scheduled Orders Name Type Priority Associated Diagnoses Orde r Schedule RPR (Monitor) with Reflex to Titer Lab Routine Dermatitis Expected: 02/27/2025, Expires: 02/27/2026 HIV-1/2 Antigen and Antibodies, Fourth Generation, with Reflexes Lab Routine Dermatitis Expected: 02/27/2025 (Approximate), Expires: 02/27/2026 Herpes Simplex Virus 1 and 2 (IgG), Type-Specific Antibodies Lab Routine Dermatitis Expected: 02/27/2025 (Approximate), Expires: 02/27/2026 documented as of this encounter Procedures Procedure Name Priority Date/Time Associated Diagnosis Comments CBC WITH AUTO DIFFERENTIAL Routine 02/27/2025 2:58 PM EDT Dermatitis documented in this encounter Results * (ABNORMAL) CBC auto differential (02/27/2025 2:58 PM EDT) White Blood Count 5.6 4.8 - 10.8 X10*3/uL [facility] Red Blood Count 4.66 4.20 - 5.50 X10*6/uL [facility] Hemoglobin 13.7 12.0 - 16.0 g/dl [facility] Hematocrit 41.2 37.0 - 47.0 % [facility] Mean Corpuscular Volume 88.4 80.0 - 98.0 fL [facility] Mean Corpuscular Hemoglobin 29.4 27.0 - 33.0 pg [facility] Mean Corpuscular HGB Conc 33.3 31.0 - 35.0 g/dl [facility] Red Cell Distribution Width 12.2 11.0 - 16.0 % [facility] Platelet Count 234 160 - 400 X10*3/uL [facility] Mean Platelet Volume 9.0(L) 9.4 - 12.3 fL [facility] Neutrophils Percent Auto 44.3(L) 45 - 73 % [facility] Imm Gran Pct Auto 0.2 0.0 - 0.4 % [facility] Lymphocytes Percent Auto 45.3(H) 20 - 40 % [facility] Monocytes Percent Auto 8.1 2 - 11 % [facility] Eosinophils Percent Auto 1.6 0 - 4 % [facility] Basophils Percent Auto 0.5 0 - 2 % [facility] NRBC Pct Auto 0.0 0.0 - 0.2 /100WBC [facility] Neutrophils Absolute Auto 2.5 2.0 - 8.3 x10*3/uL [facility] Imm Gran Abs Auto 0.01 0.00 - 0.03 X10*3/uL [facility] Lymphocytes Absolute Auto 2.5 1.2 - 4.9 X10*3/uL [facility] Monocytes Absolute Auto 0.5 0.1 - 1.2 X10*3/uL [facility] Eosinophils Absolute Auto 0.1 0.0 - 0.4 X10*3/uL [facility] Basophils Absolute Auto 0.0 0.0 - 0.2 X10*3/uL [facility] NRBC Abs Auto 0.000 0.0 - 0.012 X10*3/uL [facility] Blood Venous blood specimen / Unknown 02/27/2025 2:58 PM EDT 02/27/2025 2:58 PM EDT Kristina Anne MD LAB BLOOD ORDERABLES Final Result [facility] [address] [place] [phone] documented in this encounter Visit Diagnoses Diagnosis Dermatitis- Primary Contact dermatitis and other eczema, due to unspecified cause documented in this encounter Additional Health Concerns Assessment Noted Time PHQ-9 Depression Total Score: 4 11/30/19 25 11:03 AM EDT documented as of this encounter Care Teams Wave Solder Offbearer Relationship Specialty Start Date End Date Kristina Anne MD [address] [place] [phone] PCP - General Internal Medicine 06/26/15 documented as of this encounter
[2025-02-27 14:59] LABS: MANUAL DIFF FLAG NO
[2025-02-27 15:15] LABS: Hematocrit 41.2 % (37.0-47.0); Hemoglobin 13.7 g/dl (12.0-16.0); Imm Gran Abs Auto 0.01 X10*3/uL (0.00-0.03); Imm Gran Pct Auto 0.2 % (0.0-0.4); Lymphocytes Absolute Auto 2.5 X10*3/uL (1.2-4.9); Mean Corpuscular HGB Conc 33.3 g/dl (31.0-35.0); Mean Corpuscular Hemoglobin 29.4 pg (27.0-33.0); Mean Corpuscular Volume 88.4 fL (80.0-98.0); NRBC Abs Auto 0.000 X10*3/uL (0.0-0.012); NRBC Pct Auto 0.0 /100WBC (0.0-0.2); Platelet Count 234 X10*3/uL (160-400); Red Blood Count 4.66 X10*6/uL (4.20-5.50); White Blood Count 5.6 X10*3/uL (4.8-10.8)
--- OUTSIDE RECORDS SUMMARY | 2025-02-27 17:46 | XMS_ITS | Encounter Summary ---
Author Organization [employer] Address [address] [facility] 7t [place] [address] Care Team Providers Care Residential Collections Name Role Phone Kristina Anne MD Primary Care Provider [phone]- [phone] Encounter Details Date Type Department Care Team (Latest Contact Info) Description 02/27/2025 Travel Social History Tobacco Use Types Packs/Day Years [...] Upcoming Encounters Date Type Department Care Team ([facility] st Contact Info) Description 04/04/2025 9:00 AM EDT Clinical Support [facility] [address] [place] [address] Alayna Ambrosio, KARLI [address] [place] [address] 06/04/2025 9:30 AM EST Clinical Support [facility] [address] [place] [address] documented as of this encounter Visit Diagnoses Not on filedocumented in this encounter Additional Health Concerns Assessment Noted Time PHQ-9 Depression Total Score: 4 11/30/19 25 11:03 AM EDT documented as of this encounter Care Teams Residential Collections Relationship Specialty Start Date End Date Kristina Anne MD [address] [place] [address] PCP - General Internal Medicine 06/26/15 documented as of this encounter
--- OUTSIDE RECORDS SUMMARY | 2025-02-27 17:46 | XMS_ITS | Encounter Summary ---
Author Organization [employer] Address [address] [address] Care Team Providers Care Maintenance Apprentice Name Role Phone Kristina Anne MD Primary Care Provider [phone]- [phone] Reason for Visit * Reason Onset Date Comments Med Refill 07/05/2023 Encounter Details Date Type Department Care Team ([facility] [address] Contact Info) Description 07/05/2023 Refill [facility] [address] [place] [address] Kristina Anne MD [address] [place] [address] Chronic pain syndrome Social History Tobacco Use [...] Care Team ([facility] [address] Contact Info) Description 04/04/2025 9:00 AM EDT Clinical Support [facility] [address] [place] [address] Alanya Ambrosio, RN [address] [place] [address] 06/04/2025 9:30 AM EST Clinical Support [facility] [address] [place] [address] documented as of this encounter Visit Diagnoses Diagnosis Chronic pain syndrome documented in this encounter Additional Health Concerns Assessment Noted Time PHQ-9 Depression Total Score: 2 07/10/19 23 11:06 AM EST documented as of this encounter Care Teams Maintenance Apprentice Relationship Specialty Start Date End Date Kristina Anne MD [address] [place] [address] PCP - General Internal Medicine 06/26/15 documented as of this encounter
--- OUTSIDE RECORDS SUMMARY | 2025-02-27 17:46 | XMS_ITS | Encounter Summary ---
Author Organization [employer] Address [address] [place] [address] Care Team Providers Care Coverstitch Elastic Attacher Name Role Phone Kristina Anne MD Primary Care Provider [phone]- [phone] Encounter Details Date Type Department Care Team ([facility] Contact Info) Description 03/29/2024 Orders Only [facility] [address] [place] [address] Kristina Anne MD [address] [place] [address] Chronic pain syndrome Social History Tobacco Use [...] Upcoming Encounters Date Type Department Care Team ([facility] Contact Info) Description 04/04/2025 9:00 AM EDT Clinical Support [facility] [address] [place], [place] [phone] Alayna Ambrosio, RN [address] [place] [address] 06/04/2025 9:30 AM EST Clinical Support [facility] [address] [place] [address] documented as of this encounter Visit Diagnoses Diagnosis Chronic pain syndrome documented in this encounter Additional Health Concerns Assessment Noted Time PHQ-9 Depression Total Score: 2 07/10/19 23 11:06 AM EST documented as of this encounter Care Teams Coverstitch Elastic Attacher Relationship Specialty Start Date End Date Kristina Anne MD [address] [place] [address] PCP - General Internal Medicine 06/26/15 documented as of this encounter
--- OUTSIDE RECORDS SUMMARY | 2025-02-27 17:46 | XMS_ITS | Encounter Summary ---
Author Organization [employer] Address 75 [facility] 7 [place] [address] Care Team Providers Care Liquefied Natural Gas Plant Operator Name Role Phone Kristina Anne MD Primary Care Provider [phone]- [phone] Reason for Visit * Reason Onset Date Comments Med Refill 01/16/2025 Encounter Details Date Type Department Care Team ([facility] st Contact Info) Description 01/16/2025 Refill [facility] [address] [place] [address] Kristina Anne MD [address] [place] [address] Chronic bilateral low back pain with bilateral [...] Upcoming Encounters Date Type Department Care Team ([facility] st Contact Info) Description 04/04/2025 9:00 AM EDT Clinical Support [facility] [address] [place] [address] Alayna Ambrosio RN [address] [place] [address] 06/04/2025 9:30 AM EST Clinical Support [facility] [address] [place] [address] documented as of this encounter Visit Diagnoses Diagnosis Chronic bilateral low back pain with bilateral sciatica documented in this encounter Additional Health Concerns Assessment Noted Time PHQ-9 Depression Total Score: 4 11/30/19 25 11:03 AM EDT documented as of this encounter Care Teams Liquefied Natural Gas Plant Operator Relationship Specialty Start Date End Date Kristina Anne MD [address] [place] [phone] PCP - General Internal Medicine 06/26/15 documented as of this encounter
--- OUTSIDE RECORDS SUMMARY | 2025-02-27 17:46 | XMS_ITS | Encounter Summary ---
Author Organization [employer] Address [address] [address] Care Team Providers Care Smoking Tobacco Cutter Operator Name Role Phone Kristina Anne MD Primary Care Provider [phone]- [phone] Reason for Visit * Reason Onset Date Comments Appointment Request 01/12/2024 Encounter Details Date Type Department Care Team ([facility] st Contact Info) Description 01/12/2024 Telephone [facility] [address] [place] [address] Kristina Anne MD [address] [place] [address] Appointment Request Social History Tobacco Use Types [...] Upcoming Encounters Date Type Department Care Team ([facility] st Contact Info) Description 04/04/2025 9:00 AM EDT Clinical Support [facility] [address] [place] [address] Alayna Ambrosio RN [address] [place] [address] 06/04/2025 9:30 AM EST Clinical Support [facility] [address] [place] [address] documented as of this encounter Visit Diagnoses Not on filedocumented in this encounter Additional Health Concerns Assessment Noted Time PHQ-9 Depression Total Score: 2 07/10/19 23 11:06 AM EST documented as of this encounter Care Teams Smoking Tobacco Cutter Operator Relationship Specialty Start Date End Date Kristina Anne MD [address] [place] [address] PCP - General Internal Medicine 06/26/15 documented as of this encounter
--- OUTSIDE RECORDS SUMMARY | 2025-02-27 17:46 | XMS_ITS | Clinical Summary ---
Author Organization [facility], Address [address] [address] Phone Care Team Providers Care Assistant Corporate Controller Name Role Phone Unavailable Primary Care Provider [...]
--- OUTSIDE RECORDS SUMMARY | 2025-02-27 17:46 | XMS_ITS | Clinical Summary ---
Author Organization [facility] ity Address [address] [place] [address] Care Team Providers Care Business Broker Name Role Phone Kristina Anne MD Primary Care Provider +1 -[phone] Surgical History Surgery Date Site/Laterality Comments APPENDECTOMY 2004 PROCEDURE: MD APPENDECTOMY CHOLECYSTECTOMY 2009 PROCEDURE: LAPAROSCOPY, CHOLECYSTECTOMY WISDOM [...] (2 - Td or Tdap) 05/29/2030 05/29/2020 RSV Immunization Adult Patients (1 - 1-dose 75+ series) 2057 HIB [...] age to complete this topic Care Teams Business Broker Relationship Specialty Start Date End Date Kristina Anne MD [address] [place] [address] PCP - General Internal Medicine 10/20/21
--- OUTSIDE RECORDS SUMMARY | 2025-02-27 17:46 | XMS_ITS | Encounter Summary ---
Author Organization [employer] Address [address] [place] [address] [place] [address] Care Team Providers Care Dark Room Attendant Name Role Phone Kristina Anne MD Primary Care Provider [phone]- [phone] Encounter Details Date Type Department Care Team ([facility] Contact Info) Description 06/20/2024 Orders Only [facility] [address] [place] [address] Kristina Anne MD [address] [place] [address] Herpes genitalis in women (Primary Dx) Social [...] [facility] [address] [place] [address] Alayna Ambrosio, RN [address] [place] [address] 06/04/2025 9:30 AM EST Clinical Support [facility] [address] [place] [address] documented as of this encounter Visit Diagnoses Diagnosis Herpes genitalis in women- Primary Unspecified genital herpes documented in this encounter Additional Health Concerns Assessment Noted Time PHQ-9 Depression Total Score: 2 07/10/19 23 11:06 AM EST documented as of this encounter Care Teams Dark Room Attendant Relationship Specialty Start Date End Date Kristina Anne MD [address] [place] [address] PCP - General Internal Medicine 06/26/15 documented as of this encounter
--- OUTSIDE RECORDS SUMMARY | 2025-02-27 17:46 | XMS_ITS | Encounter Summary ---
Author Organization [employer] Address [address] [place] [address] Care Team Providers Care Gut Dropper Name Role Phone Kristina Anne MD Primary Care Provider Reason for Visit * Reason Onset Date Comments Med Refill 04/24/2024 Encounter Details Date Type Department Care Team (Late Contact Info) Description 04/24/2024 Refill [facility] [address] [place] [address] Kristina Anne MD [address] [place] [address] Chronic bilateral low back pain with bilateral [...] [facility] [address] [place] [address] Alayna Ambrosio, KARLI [address] [place] [address] 06/04/2025 9:30 AM EST Clinical Support [facility] [address] [place] [address] documented as of this encounter Visit Diagnoses Diagnosis Chronic bilateral low back pain with bilateral sciatica documented in this encounter Additional Health Concerns Assessment Noted Time PHQ-9 Depression Total Score: 2 07/10/19 23 11:06 AM EST documented as of this encounter Care Teams Gut Dropper Relationship Specialty Start Date End Date Kristina Anne MD [address] [place] [address] PCP - General Internal Medicine 06/26/15 documented as of this encounter
--- OUTSIDE RECORDS SUMMARY | 2025-02-27 17:46 | XMS_ITS | Encounter Summary ---
Author Organization [employer] Address [address] [place] [address] Care Team Providers Care Radio Personality Name Role Phone Kristina Anne MD Primary Care Provider [phone]- [phone] Reason for Referral * Imaging (Routine) - Closed Specialty Diagnoses / Procedures Referred By Contac t Referred To Contact Radiology Diagnoses Pelvic pain Procedures US Pelvis Transvaginal Kristina Anne MD [address] [place] [address] Phone: tel: fax: [address] Phone: tel: fax: Referral ID Status Reason Start Date Expiration Date Visits Re quested Visits Authorized [id number] Closed 07/30/2023 07/29/2024 1 1 Encounter Details Date Type Department Care Team (Late st Contact Info) Description 07/28/2023 Orders Only [facility] [address] [place] [address] Kristina Anne MD [address] [place] [address] Pelvic pain (Primary Dx) Social History Tobacco [...] Upcoming Encounters Date Type Department Care Team ([facility] st Contact Info) Description 04/04/2025 9:00 AM EDT Clinical Support [facility] [address] [place] [address] Alayna Ambrosio RN [address] [place] [address] 06/04/2025 9:30 AM EST Clinical Support [facility] [address] [place] [address] Scheduled Orders Name Type Priority Associated Diagnoses [...] PM EST Narrative 08/18/2023 9:48 AM EDT [facility] [address] [place] [address] Mammography Report Signed Patient: Ashley Lucero MR#: [id number] : 1980 Acct:[id number] Age/Sex: 43 / F ADM Date: 08/04/23 Loc: HO.MAMMO Attending Dr: Kristina Anne MD Ordering Physician: Kristina Anne MD Results: 1 Negative Date of Service: 08/04/23 Follow Up: 1 Year From Orig inal Mammogram Procedure(s): MM tomosynthesis diagnostic LT Accession Number(s): [id number] cc: Kristina Anne MD EXAMINATION: MM DIAGNOSTIC [...] in OV> 08/18/23 0944 DD/ 1530 TD/TT: Personal Security Specialist: Procedure Note Donotuseinterpreter, Image - 08/18/2023 [facility] [address] [place] [address] Mammography Report Signed Patient: Ana Lucero#: [id number] : 1980Acct:[id number] Age/Sex: 43 / FADM Date: 08/04/23 Loc: HO.MAMMO Attending Dr: Kristina Anne MD Ordering Physician: Kristina Anne MDResults: 1 Negative Date of Service: 08/04/23Follow Up: 1 Year From Orig inal Mammogram Procedure(s): MM tomosynthesis diagnostic LT Accession Number(s): [id number] cc: Kristina Anne MD EXAMINATION: MM DIAGNOSTIC [...] in OV> 08/18/23 0944 DD/ 1530 TD/TT: Personal Security Specialist: us Kristina Anne MD IMG BI PROCEDURES Final Res ult documented in this encounter Visit Diagnoses Diagnosis Pelvic pain- Primary documented in this encounter Additional Health Concerns Assessment Noted Time PHQ-9 Depression Total Score: 2 07/10/19 23 11:06 AM EST documented as of this encounter Care Teams Radio Personality Relationship Specialty Start Date End Date Kristina Anne MD [address] [place] [id number] PCP - General Internal Medicine 06/26/15 documented as of this encounter
--- OUTSIDE RECORDS SUMMARY | 2025-02-27 17:46 | XMS_ITS | Clinical Summary ---
Author Organization [employer] Address [address] [facility] 7 [place] [address] Care Team Providers Care Recruiting Team Lead Name Role Phone Kristina Anne MD [...] 14 days. 28 tablet 025 2024 Active fexofenadine (Kell) 180 MG tabletIndications :Dermatitis Take 1 tablet (180 mg) by mouth if needed each day (Allergies). 30 tablet 1 025 2024 Active Chlorhexidine Gluconate (Hibiclens) 4 % solutionIndicatio ns:Dermatitis Rinse area with water, then cover affected skin, wash gently. Rinse again thoroughly. 236 mL 1 Active oxyCODONE-acetami nophen (Percocet) 5-325 MG tabletIndications [...] Encounters Date Type Department Care Team Description 02/27/2025 1:40 PM EDT Office Visit [facility] [address] [place] [address] Kristina Anne MD Dermatitis (Primary Dx) 02/27/2025 Travel 02/25/2025 Refill [facility] [address] [place] [address] Kristina Anne MD Chronic pain syndrome 02/11/2025 Refill [facility] [address] [place] [address] Kristina Anne MD Chronic pain syndrome 01/29/2025 9:30 AM EDT Clinical Support [facility] [address] [place] [address] Sheri Garcia, KARLI Encounter for immunization 01/29/2025 Travel 01/29/2025 Refill [facility] [address] [place] [address] Kristina Anne MD Chronic pain syndrome 01/25/2025 Orders Only GENERIC EXTERNAL DATA DEPARTMENT Provider, Generic External Data 01/16/2025 Refill [facility] [address] [place] [place] [address] Kristina Anne MD Chronic bilateral low back pain with bilateral sciatica 01/16/2025 Refill [facility] [address] [place] [address] Kristina Anne MD Chronic bilateral low back pain with bilateral sciatica 01/15/2025 Refill [facility] [address] [place] [address] Kristina Anne MD Depressive disorder; Chronic pain syndrome 01/04/2025 9:00 AM EDT Clinical Support [facility] [address] [place] [address] Alayna Ambrosio, 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 pain 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 01/04/2025 Refill [facility] [address] [place] [address] Alayna Ambrosio RN 01/04/2025 Travel 01/02/2025 Travel 01/01/2025 Refill [facility] [address] [place] [address] Alexia Wray FNP Chronic pain syndrome 12/28/2024 Orders Only [facility] [address] [place] [address] Enriqueta Brothers MD 12/28/2024 Orders Only [facility] [address] [place] [address] Enriqueta Brothers MD 12/26/2024 Orders Only GENERIC EXTERNAL DATA DEPARTMENT Provider, Generic External Data 12/18/2024 Telephone [facility] [address] [place] [address] Kristina Anne MD Medication Question 12/18/2024 Refill [facility] [address] [place] [address] Kristina Anne MD Chronic pain syndrome 12/12/2024 10:00 AM EDT Procedure Visit [facility] [address] [place] [address] Brook Saldivar MD Cervical cancer screening (Primary Dx) 12/12/2024 Travel 12/04/2024 Refill [facility] [address] [place] [address] Kristina Anne MD Chronic pain syndrome 12/01/2024 Results Follow-Up [facility] [address] [place] [address] Sheri Garcia, KARLI Hepatitis C Antibody with Reflex to HCV, RNA, Quantitative, Real-Time PCR, HIV-1/2 Antigen and Antibodies, Fourth Generation, with Reflexes, CBC auto differential, Additional followed-up results: 3 11/29/2024 10:00 AM EDT Office Visit [facility] [address] [place] [address] Kristina Anne MD Periodic headache syndrome, not [...] Mass Index 25.58 02/27/2025 1:30 PM EDT Plan of Treatment Upcoming Encounters Date Type Department Care Team (Late st Contact Info) Description 04/04/2025 9:00 AM EDT Clinical Support [facility] [address] [place] [address] Alayna Ambrosio RN [address] [place] [address] 06/04/2025 9:30 AM EST Clinical Support [facility] [address] [place] [address] Health Maintenance Due Date Last Done Comments Family Planning (PISQ) 1997 HPV Vaccines (1 - 3-dose series) 1997 COVID-19 Vaccine (1 - 2023-2 5 season) 2025 Influenza Vaccine (#1) 2025 , 03/15/2019 Hepatitis B Vaccines (3 of 3 - 19+ 3-dose series) 05/31/2025 01/29/2025, 11/29/2024 Mammogram 08/04/2025 08/04/2023, 05/17/2023 Disability Screening 08/16/2025 08/16/2024 SDOH Screening 11/22/2025 11/22/2024 Alcohol/Substance Use Screening 11/29/2025 11/29/2024 Depression Screening 11/29/2025 11/29/2024, 11/29/2024 Tobacco Screening 02/27/2026 02/27/2025 Cervical Cancer Screening 12/12/2029 HPV/Cotest 12/12/2029 04/05/2018 [...] DIFFERENTIAL Routine 02/27/2025 2:58 PM EDT Dermatitis HEMATOXYLIN AND EOSIN STAIN Routine 01/25/2025 10:51 AM EDT HCG, QL, URINE Routine 01/25/2025 9:05 AM EDT POCT KP-14 URINE DRUG SCREEN Routine 01/04/2025 9:15 AM [...] Recently Relevant to Health Maintenance Results * (ABNORMAL) CBC auto differential (02/27/2025 2:58 PM EDT) Only the most recent of3 resultswithin the time period is included. White Blood Count 5.6 4.8 - 10.8 X10*3/uL [facility] Red Blood Count 4.66 4.20 - 5.50 X10*6/uL [facility] Hemoglobin 13.7 12.0 - 16.0 g/dl [facility] Hematocrit 41.2 37.0 - 47.0 % [facility] Mean Corpuscular Volume 88.4 80.0 - 98.0 fL [facility] Mean Corpuscular Hemoglobin 29.4 27.0 - 33.0 pg [facility] Mean Corpuscular HGB Conc 33.3 31.0 - 35.0 g/dl [facility] Red Cell Distribution Width 12.2 11.0 - 16.0 % [facility] Platelet Count 234 160 - 400 X10*3/uL [facility] Mean Platelet Volume 9.0(L) 9.4 - 12.3 fL [facility] Neutrophils Percent Auto 44.3(L) 45 - 73 % [facility] Imm Gran Pct Auto 0.2 0.0 - 0.4 % [facility] Lymphocytes Percent Auto 45.3(H) 20 - 40 % [facility] Monocytes Percent Auto 8.1 2 - 11 % [facility] Eosinophils Percent Auto 1.6 0 - 4 % [facility] Basophils Percent Auto 0.5 0 - 2 % [facility] NRBC Pct Auto 0.0 0.0 - 0.2 /100WBC [facility] Neutrophils Absolute Auto 2.5 2.0 - 8.3 x10*3/uL [facility] Imm Gran Abs Auto 0.01 0.00 - 0.03 X10*3/uL [facility] Lymphocytes Absolute Auto 2.5 1.2 - 4.9 X10*3/uL [facility] Monocytes Absolute Auto 0.5 0.1 - 1.2 X10*3/uL [facility] Eosinophils Absolute Auto 0.1 0.0 - 0.4 X10*3/uL [facility] Basophils Absolute Auto 0.0 0.0 - 0.2 X10*3/uL [facility] NRBC Abs Auto 0.000 0.0 - 0.012 X10*3/uL [facility] Blood Venous blood specimen / Unknown 02/27/2025 2:58 PM EDT 02/27/2025 2:58 PM EDT Kristina Anne MD LAB BLOOD ORDERABLES Final Result [facility] [address] [place] [phone] * Hematoxylin and Eosin Stain (01/25/2025 10:51 AM EDT) 01/25/2025 10:5 1 AM EDT 01/25/2025 11:20 AM EDT Narrative [facility] - 01/26/2025 1:57 PM EDT ----- ------- Name: Ashley Lucero Age/Sex: 44/F : 1980 [facility]#: [id number] Unit#: [id number] Attend Dr: Radha Zhong MD Re01/25/25 Status: [facility] Location: [facility] Disch: ----- ------- SPEC : [id number] RECD: 01/25/25-1119 STATUS: MANUEL RESTREPO NUM: [id number] NAVEEN: 01/25/25-[address] [facility] [address]: Radha Zhong MD ENTERED: 01/25/25-113 SP TYPE: Surgical OTHR DR: Kristina Anne [...] developed and their performance characteristics determined by [facility]. They have not been cleared or approved by the U.S. Food and Drug Administration (FDA). However, the FDA CONTINUED ON NEXT PAGE ----- ------- Name: Ashley Lucero Age/Sex: 44/F : 1980 Unit#: [id number] Attend Dr: Radha Zhong MD Re01/25/25 Status: [facility] Location: [facility] Disch: ----- ------- SPEC : [id number] RECD: 01/25/25 STATUS: MANUEL RESTREPO NUM: [id number] NAVEEN: 01/25/25-[address] [facility] [address]: Radha Zhong MD ENTERED: 01/25/25-1129 SP TYPE: Surgical OTHR DR: Kristina Anne MD ORDERED: HE Stain/6, Gross Micro L4/2, IHC, Special st. 2/2, H. pylori, AB/PAS/2 IHC S/NG Disclaimer (Continued) has determined that such clearance or approval is not necessary. This laboratory is certified under the Clinical Laboratory Improvement Amendments of 1988 (CLIA) as qualified to perform high complexity clinical laboratory testing. Copies To: Kristina Anne MD [address] [id number] Radha Zhong MD [facility] [address] [place] [address] [phone] [email or web address] ----- ------- Signed (signature on file) Leeann Gonzalez MD 01/26/25 1357 ----- ------- END OF REPORT us Generic External Data Provider LAB BLOOD ORDERAB LES Final Result [facility] [address] [place] [address] [phone] * HCG, Qualitative, Urine (01/25/2025 9:05 AM EDT) Only the most recent of2 resultswithin the time period is included. Urine NEGATIVE NEGATIVE [facility] Comment:This test was develo ped to detect early . Falsenegative results may occur after the 5th - 7th week ofpregnancy when using this test method. If clinicallyindicated, consider a serum hCG. 01/25/2025 9:05 AM EDT 01/25/2025 9:13 AM EDT us Generic External Data Provider LAB URINE ORDERAB LES Final Result [facility] [address] [place] [phone] * (ABNORMAL) POCT PK-14 Urine Drug [...] / Unknown 01/04/2025 9:15 AM EDT Narrative Alayna Ambrosio RN - 01/04/2025 9:15 AM EDT Internal Pass Control Lot# [id number] Exp: 04-06-26 us Kristina Anne MD POINT OF CARE TEST ENTER/ED IT ORDERABLES Final Result * (ABNORMAL) Urinalysis, Complete, with Reflex to Culture (12/26/2024 1:13 PM EDT) Color Urine Yellow [facility] Appearance Urine Clear [facility] PH 7.5 5.0 - 9.0 [facility] Glucose Urine UA Negative Negative mg/dL [facility] Urine Blood Negative Negative [facility] Specific [place] - Urine 1.020 1.005 - 1.025 [facility] Urine Protein Trace Neg-Trace mg/dL [facility] Urine Ketones Trace Negative mg/dL [facility] Nitrite Urine Negative Negative [facility] Leukocyte Esterase Urine Moderate (2+)(A) Negative [facility] RBC Urine 0-2 0 - 2 /HPF [facility] Urine WBC 21-50 0 - 5 /HPF [facility] Urine Squamous Epithelial Cell 3-5 0 - 2 /HPF [facility] Urine Bacteria 1+ None Seen [facility] Hyaline Casts, Urine 0-2 0 - 2 /LPF [facility] 12/26/2024 1:13 PM EDT 12/26/2024 1:23 PM EDT Narrative [facility] - 12/26/2024 1:55 PM EDT [id number], Clean Catch us Generic External Data Provider LAB URINE ORDERAB LES Final Result Performing Organization Address City/State/[facility] Co de Phone Number [facility] [address] [place] [phone] * hCG, Total, Quantitative (12/26/2024 1:13 PM EDT) HCG Quantitative <2 mIU/mL [facility] Comment:Weeks post LMP Appro ximate hCG(Last Menstrual Period) Range (mIU/ml)3 - 4 weeks 9 - 1304 - 5 weeks 75 - 2,6005 - 6 weeks 850 - 20,8006 - 7 weeks 4000 - 100,2007 - 12 weeks 11,500 - 289,46840 - 16 weeks 18,300 - 137,63496 - 29 weeks (2nd trimester) 1,400 - 53,22493 - 41 weeks (3rd trimester) 940 - [...] Provider LAB BLOOD ORDERAB LES Final Result [facility] [address] [place] [address] [phone] * (ABNORMAL) Comprehensive Metabolic Panel (12/26/2024 1:13 PM EDT) Only the most recent of2 resultswithin the time period is included. Sodium 140 135 - 145 mmol/L [facility] Potassium 3.9 3.3 - 5.1 mmol/L [facility] Chloride 106 96 - 108 mmol/L [facility] Carbon Dioxide 26 22 - 29 mmol/L [facility] Anion Gap 12 12 - 20 [facility] Urea Nitrogen (BUN) 10 9 - 16 mg/dL [facility] Creatinine, Serum 1.09 0.5 - 1.4 mg/dL [facility] Creatinine Clr Calc Pharmacy 63.5 [facility] Comment:Provided height and weight: 162.56 cm,67.7 kg.eGFR (calculated from the MDRD study equation) and eCrCl(calculated from the Cockcroft-Gault equation) are based ondifferent parameters and may not yield comparable results.If eCrCl result is absurd, please check patient'sheight/weight. Estimated Glomerular Filt Rate 55 [facility] Comment:Chronic Kidney Disea se: Estimated GFR < 60 mL/min/1.39v8Zsufoc Kidney Disease: Estimated GFR < 15 mL/min/1.73m2 Glucose 101 60 - 115 mg/dL [facility] Calcium 8.7 8.4 - 10.2 mg/dL [facility] Bilirubin, Total 2.3(H) 0.0 - 1.0 mg/dL [facility] Comment:Slight Icterus. Aspartate Amino Transferase 23 5 - 31 U/L [facility] Alanine Aminotransferase 18 0 - 31 U/L [facility] Total Protein 7.1 6.5 - 8.0 g/dL [facility] Albumin Level 4.3 3.5 - 5.0 g/dL [facility] Alkaline Phosphatase 42 39 - 117 U/L [facility] 12/26/2024 1:13 PM EDT 12/26/2024 1:23 PM EDT Generic External Data Provider LAB BLOOD ORDERAB LES Final Result Performing Organization Address [facility] de Phone Number [facility] [address] [place] [phone] * Culture, Urine, Routine (12/26/2024 12:00 AM EDT) Urine Urine specimen obtained by clean catch procedure / Unknown 12/26/2024 12/26/2024 Comment:UA Narrative [facility] - 12/28/2024 7:41 AM EDT Escherichia coli Quant > 100,000 cfu/mL Escherichia coli: Ampicillin <=2(S) Escherichia coli: Cefazolin (Urine) <=1(S) Escherichia coli: Cefepime <=0.12(S) Escherichia coli: Ceftriaxone <=0.25(S) Escherichia coli: Ciprofloxacin <=0.06(S) Escherichia coli: Gentamicin <=1(S) Escherichia coli: Nitrofurantoin <=16(S) Escherichia coli: Trimethoprim/Sulfamethoxazole <=20(S) Specimen Source: Urine clean catch Generic External Data Provider LAB MICROBIOLOGY - GENERAL ORDERABLES Final Result Performing Organization Address [facility] de Phone Number [facility] [address] [place] [phone] * Pap Smear (12/12/2024 10:18 AM EDT) Swab 12/12/2024 10:1 8 AM EDT 12/13/2024 8:30 AM EDT Terrell [facility] - 12/15/2024 12:54 PM EDT ----- ------- Name: Ashley Lucero Age/Sex: 44/F : 1980 Unit#: [id number] Attend Dr: Brook Saldivar MD Re12/12/24 Status: DEP REF Location: [facility] Disch: ----- ------- SPEC : [id number] RECD: 12/13/24 STATUS: MANUEL RESTREPO NUM: [id number] NAVEEN: 12/12/[address] [facility] [address]: Brook Saldivar MD ENTERED: 12/13/24 SP TYPE: Pap Smr OTHR : ORDERED: Pap Smear Interpretation Satisfactory for evaluation. Negative for intraepithelial lesion or malignancy. Clinical Information LMP: Unknown date Previous PAP test: Unknown date/findings Other history: Cervical cancer screening Material Received ThinPrep-Cervical PAP Disclaimer As of March 29, 2024, the technical services to include automated prescreening performed by the ThinPrep Imaging System, PAP screening and HPV testing will be performed at [facility] (IA #[id number]), [address] [place] [address]. Testing for HPV was performed using the Carlee JACEY 6800 system. The presence of HPV in the [...] detected. All professional services are performed by [facility] ([address] [place] [address], [place] [address]; ; [place] #[id number]). The PAP Test is a screening procedure with the inherent possibility of both false negative and false positive results. Results should be interpreted in the context of historic and current clinical findings. Reliability of the PAP Test is enhanced by performing the test on a regular repetitive basis. ----- ------- Signed (signature on file) RAMONE Mckoy ([facility]) 12/15/24 1254 ----- ------- END OF REPORT us Brook Saldivar MD LAB CYTOLOGY ORDERABLES Final Result [facility] [address] [place] [phone] * TSH W/Reflex to FT4 (11/30/2024 8:07 AM EDT) TSH reflex Free T4 1.36 0.32 - 4.0 uIU/mL [facility] Blood Venous blood specimen / Unknown 11/30/2024 8:07 AM EDT 11/30/2024 8:07 AM EDT us Kristina Anne MD LAB BLOOD ORDERABLES Final Result Performing Organization Address [facility]/ZIP Co de Phone Number [facility] [address] [place] [phone] * Hepatitis C Antibody with Reflex to HCV, RNA, Quantitative, Real-Time PCR (11/30/2024 8:07 AM EDT) Hepatitis C Antibody Nonreactive Nonreactive [facility] Comment:Antibodies to HCV no t detected; does not exclude early acuteHCV infection. Blood Venous blood specimen / Unknown 11/30/2024 8:07 AM EDT 11/30/2024 8:07 AM EDT us Kristina Anne MD LAB BLOOD ORDERABLES Final Result Performing Organization Address [facility] de Phone Number [facility] [address] [place] [phone] * HIV-1/2 Antigen and Antibodies, Fourth Generation, with Reflexes (11/30/2024 8:07 AM EDT) Pathologist [facility] HIV AB/AG Nonreactive Nonreactive [facility] Comment:HIV-1 p24 Ag and/or HIV-1/HIV-2 Ab not detected.A test result that is nonreactive does not exclude thepossibility of exposure to or infection with HIV-1 and/orHIV-2. Nonreactive results in this assay for individualswith prior exposure to HIV-1 and/or HIV-2 may be due toantigen and antibody levels that are below the limit ofdetection of this assay.The [employer] HIV Ag/Ab Combo assay result andsupplemental assay results should be interpreted inconjunction with the patient's clinical presentation,history and other laboratory results. If the results areinconsistent with clinical evidence, additional testing issuggested to confirm the result. Blood Venous blood specimen / Unknown 11/30/2024 8:07 AM EDT 11/30/2024 8:07 AM EDT us Kristina Anne MD LAB BLOOD ORDERABLES Final Result Performing Organization Address City/[facility]/ZIP Co de Phone Number [facility] [address] [place] [phone] * (ABNORMAL) Lipid Panel, Standard (11/30/2024 8:07 AM EDT) Triglycerides 100 <150 mg/dL [facility] Comment:Desirable Triglyceri de: less than 150 mg/dLBorderline High Triglyceride 150-199 mg/dLHigh Triglyceride: 200-499 mg/dLVery High Triglyceride: greater than or equal to 5OO mg/dL Cholesterol 198 <200 mg/dL [facility] Comment:Desirable Cholestero l: less than 200 mg/dLBorderline High Cholesterol: 200-239 mg/dLHigh Cholesterol: greater than 239 mg/dL LDL Cholesterol Calculated 124(H) <100 mg/dL [facility] Comment:Desirable LDL: less than 100 mg/dLNear Optimal/Above Optimal LDL: 110- 129 mg/dLBorderline High LDL: 130-159 mg/dLHigh LDL: 160-189 mg/dLVery High LDL: greater than or equal to 190 mg/dL HDL Cholesterol 54 >40 mg/dL [facility] Comment:Desirable HDL: great er than 40 mg/dL Note: This HDL assay may give artificially low results in patients with liver disease. Blood Venous blood specimen / Unknown 11/30/2024 8:07 AM EDT 11/30/2024 8:07 AM EDT us Kristina Anne MD LAB BLOOD ORDERABLES Final Result Performing Organization Address City/[facility]/ZIP Co de Phone Number [facility] [address] [place] [phone] * BI Mammogram Diagnostic Tomosynthesis Left (08/04/2023 3:30 PM EST) Anatomical Region Laterality Modality Breast Left Mammography 08/04/2023 3:30 PM EST Narrative 08/18/2023 9:48 AM EDT [facility] [address] [place], [place] [address] Mammography Report Signed Patient: Ashley Lucero MR#: [id number] : 1980 Acct:[id number] Age/Sex: 43 / F ADM Date: 08/04/23 Loc: HO.MAMMO Attending Dr: Kristina Anne MD Ordering Physician: Kristina Anne MD Results: 1 Negative Date of Service: 08/04/23 Follow Up: 1 Year From Orig inal Mammogram Procedure(s): MM tomosynthesis diagnostic LT Accession Number(s): [id number] cc: Kristina Anne MD EXAMINATION: MM DIAGNOSTIC [...] in OV> 08/18/23 0944 DD/ 1530 TD/TT: Manager Credit: Procedure Note Donotuseinterpreter, Image - 08/18/2023 [facility] [address] [place] [address] Mammography Report Signed Patient: Ana Lucero#: [id number] : 1980Acct:[id number] Age/Sex: 43 / FADM Date: 08/04/23 Loc: HO.MAMMO Attending Dr: Kristina Anne MD Ordering Physician: Kristina Anne MDResults: 1 Negative Date of Service: 08/04/23Follow Up: 1 Year From Orig ina Mammogram Procedure(s): MM tomosynthesis diagnostic LT Accession Number(s): [id number] cc: Kristina Anne MD EXAMINATION: MM DIAGNOSTIC [...] in OV> 08/18/23 0944 DD/ 1530 TD/TT: Manager Credit: us Kristina Anne MD IMG BI PROCEDURES Final Res ult * HPV mRNA E6/E7 (04/05/2018 4:37 PM EDT) HPV mRNA E6/E7 Not Detected NOT DETECTED [facility] Comment: This test was performed using the APTIMA(R) HPV Assay ([employer] This assay detects E6/E7 viral messenger RNA (mRNA) from 14 high-risk HPV types (16,18,31,33,35,39,45,51, 52,56,58,59,66,68). For additional information please refer to: http://education.[employer]/faq/DAF919q4 (This link is being provided for informational/ educational purposes only.) The analytical performance characteristics of this assay have been determined by [employer] [place], [place]. The modifications have not been cleared or approved by the FDA. This assay has been validated pursuant to the CLIA regulations and is used for clinical purposes. Test Performed by [facility], [facility], [address] [place] [address] Marcus Farmer M.D., Ph.D., Director of Laboratories , CLIA [id number] Please note: Effective 02/17/2016, HPV testing will be performed using [employer] APTIMA test which targets mRNA. Detecting mRNA instead of DNA, as in older methods, offers significant improvements in specificity. 04/05/2018 4:37 PM EDT us Gely Feliciano CNM HISTORICAL/NON ORDERABLE LABS Final Result [facility] [address] from Last 3 Months or Most Recently Relevant to Health Maintenance Insurance [facility] 3 Care Teams Recruiting Team Lead Relationship Specialty Start Date End Date Kristina Anne MD [address] [place] [phone] PCP - General Internal Medicine 06/26/15
--- OUTSIDE RECORDS SUMMARY | 2025-02-27 17:46 | XMS_ITS | Encounter Summary ---
Author Organization [employer] Address [address] [address] Care Team Providers Care Rod Machine Operator Name Role Phone Kristina Anne MD Primary Care Provider +1- [phone] Reason for Visit * Reason Onset Date Comments Med Refill 12/07/2023 Encounter Details Date Type Department Care Team (Late st Contact Info) Description 12/07/2023 Telephone [facility] MEDICINE [address] [place] [address] Kristina Anne MD [address] [place] [address] Med Refill Social History Tobacco Use Types [...] 5-325 MG tablet To be sent to: [facility]/pharmacy #[id number] [place] [address] [facility] documented in this encounter Plan of Treatment Upcoming Encounters Date Type Department Care Team ([facility] st Contact Info) Description 04/04/2025 9:00 AM EDT Clinical Support [facility] MED & PEDS [address] [place] [address] Alayna Ambrosio RN 505 [place] [address] 06/04/2025 9:30 AM EST Clinical Support [facility] MED & PEDS [address] [place] [address] documented as of this encounter Visit Diagnoses Not on filedocumented in this encounter Additional Health Concerns Assessment Noted Time PHQ-9 Depression Total Score: 2 07/10/19 23 11:06 AM EST documented as of this encounter Care Teams Rod Machine Operator Relationship Specialty Start Date End Date Kristina Anne MD [address] [place] [address] PCP - General Internal Medicine 06/26/15 documented as of this encounter
--- OUTSIDE RECORDS SUMMARY | 2025-02-27 17:46 | XMS_ITS | Encounter Summary ---
Author Organization [employer] Address 75 [facility] [address]t [place] [address] Care Team Providers Care Livestock Broker Name Role Phone Kristina Anne MD Primary Care Provider +1- [phone] Encounter Details Date Type Department Care Team ([facility] Contact Info) Description 12/28/2024 Orders Only [facility] MED & PEDS [address] [place] [address] Enriqueta Brothers MD 505 [place] [address] Social History Tobacco Use Types Packs/Day Years [...] Upcoming Encounters Date Type Department Care Team ([facility] st Contact Info) Description 04/04/2025 9:00 AM EDT Clinical Support [facility] MED & PEDS [address] [place] [address] Alayna Ambrosio RN [address] [place] [address] 06/04/2025 9:30 AM EST Clinical Support [facility] MED & PEDS [address] [place] [address] documented as of this encounter Visit Diagnoses Not on filedocumented in this encounter Additional Health Concerns Assessment Noted Time PHQ-9 Depression Total Score: 4 11/30/19 11:03 AM EDT documented as of this encounter Care Teams Livestock Broker Relationship Specialty Start Date End Date Kristina Anne MD [address] [place] [address] PCP - General Internal Medicine 06/26/15 documented as of this encounter
--- OUTSIDE RECORDS SUMMARY | 2025-02-27 17:46 | XMS_ITS | Encounter Summary ---
Author Organization [employer] Address [address] [address] Care Team Providers Care Wastewater Process Engineer Name Role Phone Kristina Anne MD Primary Care Provider +1- [phone] Reason for Visit * Reason Onset Date Comments Med Refill 09/29/2022 Encounter Details Date Type Department Care Team ([facility] st Contact Info) Description 09/29/2022 Telephone [facility] MEDICINE [address] [place] [address] Kristina Anne MD [address] [place] [address] Med Refill Social History Tobacco Use Types [...] Upcoming Encounters Date Type Department Care Team ([facility] st Contact Info) Description 04/04/2025 9:00 AM EDT Clinical Support [facility] MED & PEDS [address] [place] [address] Alayna Ambrosio RN 505 [place] [address] 06/04/2025 9:30 AM EST Clinical Support [facility] MED & PEDS [address] [place] [address] documented as of this encounter Visit Diagnoses Not on filedocumented in this encounter Additional Health Concerns Assessment Noted Time PHQ-9 Depression Total Score: 2 07/10/19 23 11:06 AM EST documented as of this encounter Care Teams Wastewater Process Engineer Relationship Specialty Start Date End Date Kristina Anne MD [address] [place] [address] PCP - General Internal Medicine 06/26/15 documented as of this encounter
--- OUTSIDE RECORDS SUMMARY | 2025-02-27 17:46 | XMS_ITS | Encounter Summary ---
Author Organization [employer] Address [address] [address] Care Team Providers Care Other Wood Processing Machine Operator Name Role Phone Kristina Anne MD Primary Care Provider +1- [phone] Reason for Visit * Reason Onset Date Comments Med Refill 06/08/2023 Encounter Details Date Type Department Care Team ([facility] st Contact Info) Description 06/08/2023 Telephone [facility] MEDICINE [address] [place] [address] Kristina Anne MD [address] [place] [address] Med Refill Social History Tobacco Use Types [...] 100 MG capsule To be sent to: [facility]/PHARMACY #[id number] - [place] - [address] [facility] documented in this encounter Plan of Treatment Upcoming Encounters Date Type Department Care Team ([facility] st Contact Info) Description 04/04/2025 9:00 AM EDT Clinical Support [facility] MED & PEDS [address] [place] [address] Alayna Ambrosio, KARLI 505 [place] [address] 06/04/2025 9:30 AM EST Clinical Support [facility] MED & PEDS [address] [place] [address] documented as of this encounter Visit Diagnoses Not on filedocumented in this encounter Additional Health Concerns Assessment Noted Time PHQ-9 Depression Total Score: 2 07/10/19 23 11:06 AM EST documented as of this encounter Care Teams Other Wood Processing Machine Operator Relationship Specialty Start Date End Date Kristina Anne MD [address] [place] [address] PCP - General Internal Medicine 06/26/15 documented as of this encounter
--- OUTSIDE RECORDS SUMMARY | 2025-02-27 17:46 | XMS_ITS | Encounter Summary ---
Author Organization [employer] Address 75 [facility] 7 [place] [address] Care Team Providers Care Stopper Maker Helper Name Role Phone Kristina Anne MD Primary Care Provider +1- [phone] Reason for Visit * Reason Comments Med Refill Encounter Details Date Type Department Care Team ([facility] Contact Info) Description 06/23/2022 Refill [facility] CH[facility] MED & PEDS [address] [place] [address] Kristina Anne MD [address] [place] [address] Chronic bilateral low back pain with bilateral [...] Upcoming Encounters Date Type Department Care Team ([facility] Contact Info) Description 04/04/2025 9:00 AM EDT Clinical Support [facility] MED [facility]EDS [address] [place] [address] Alayna Ambrosio, RN [address] [place] [address] 06/04/2025 9:30 AM EST Clinical Support [facility] MED & PEDS [address] [place] [address] documented as of this encounter Visit Diagnoses Diagnosis Chronic bilateral low back pain with bilateral sciatica documented in this encounter Care Teams Stopper Maker Helper Relationship Specialty Start Date End Date Kristina Anne MD [address] [place] [address] PCP - General Internal Medicine 06/26/15 documented as of this encounter
--- OUTSIDE RECORDS SUMMARY | 2025-02-27 17:46 | XMS_ITS | Encounter Summary ---
Author Organization [employer] Address [address] [address] Care Team Providers Care Registered Public Surveyor Name Role Phone Kristina Anne MD Primary Care Provider +1- [phone] Reason for Visit * Reason Onset Date Comments Call Back Request 02/16/2024 Encounter Details Date Type Department Care Team ([facility] st Contact Info) Description 02/16/2024 Telephone [facility] MEDICINE [address] [place] [address] Kristina Anne MD [address] [place] [address] Call Back Request Social History Tobacco Use [...] Upcoming Encounters Date Type Department Care Team ([facility] st Contact Info) Description 04/04/2025 9:00 AM EDT Clinical Support [facility] MED & PEDS [address] [place] [address] Alayna Ambrosio, KARLI [address] [place] [address] 06/04/2025 9:30 AM EST Clinical Support [facility] MED & PEDS [address] [place] [address] documented as of this encounter Visit Diagnoses Not on filedocumented in this encounter Additional Health Concerns Assessment Noted Time PHQ-9 Depression Total Score: 2 07/10/19 23 11:06 AM EST documented as of this encounter Care Teams Registered Public Surveyor Relationship Specialty Start Date End Date Kristina Anne MD [address] [place] [address] PCP - General Internal Medicine 06/26/15 documented as of this encounter
--- OUTSIDE RECORDS SUMMARY | 2025-02-27 17:46 | XMS_ITS | Encounter Summary ---
Author Organization [employer] Address [address] [place] [address] Care Team Providers Care Public Safety Officer Name Role Phone Kristina Anne MD Primary Care Provider +1- [phone] Reason for Visit * Reason Comments Med Refill Encounter Details Date Type Department Care Team ([facility] Contact Info) Description 07/04/2024 Refill [facility] MED & PEDS [address] [place] [address] Kristina Anne MD [address] [place] [address] Social History Tobacco Use Types Packs/Day Years [...] Encounters Date Type Department Care Team ([facility] Contact Info) Description 04/04/2025 9:00 AM EDT Clinical Support [facility] MED & PEDS [address] [place] [address] Alayna Ambrosio, RN [address] [place] [address] 06/04/2025 9:30 AM EST Clinical Support [facility] MED & PEDS [address] [place] [address] documented as of this encounter Visit Diagnoses Not on filedocumented in this encounter Additional Health Concerns Assessment Noted Time PHQ-9 Depression Total Score: 2 07/10/19 23 11:06 AM EST documented as of this encounter Care Teams Public Safety Officer Relationship Specialty Start Date End Date Kristina Anne MD [address] [place] [address] PCP - General Internal Medicine 06/26/15 documented as of this encounter
--- OUTSIDE RECORDS SUMMARY | 2025-02-27 17:46 | XMS_ITS | Encounter Summary ---
Author Organization [employer] Address [address] [place] [address] Care Team Providers Care Biometrics Head Name Role Phone Kristina Anne MD Primary Care Provider +1- [phone] Reason for Visit * Reason Onset Date Comments Med Refill 12/18/2024 Encounter Details Date Type Department Care Team ([facility] st Contact Info) Description 12/18/2024 Refill [facility] MED & PEDS [address] [place] [address] Kristina Anne MD [address] [place] [address] Chronic pain syndrome Social History Tobacco Use [...] Upcoming Encounters Date Type Department Care Team ([facility] st Contact Info) Description 04/04/2025 9:00 AM EDT Clinical Support [facility] MED & PEDS [address] [place] [address] Alayna Ambrosio RN [address] [place] [address] 06/04/2025 9:30 AM EST Clinical Support [facility] MED & PEDS [address] [place] [address] documented as of this encounter Visit Diagnoses Diagnosis Chronic pain syndrome documented in this encounter Additional Health Concerns Assessment Noted Time PHQ-9 Depression Total Score: 4 11/30/19 25 11:03 AM EDT documented as of this encounter Care Teams Biometrics Head Relationship Specialty Start Date End Date Kristina Anne MD [address] [place] [address] PCP - General Internal Medicine 06/26/15 documented as of this encounter
--- OUTSIDE RECORDS SUMMARY | 2025-02-27 17:46 | XMS_ITS | Encounter Summary ---
Author Organization [employer] Address [address] [address] Care Team Providers Care Training Program Assistant Name Role Phone Kristina Anne MD Primary Care Provider +1- [phone] Reason for Visit * Reason Onset Date Comments Appointment Request 08/04/2024 Encounter Details Date Type Department Care Team ([facility] Contact Info) Description 08/04/2024 Telephone [facility] MEDICINE [address] [place] [address] Kristina Anne MD [address] [place] [address] Appointment Request Social History Tobacco Use Types [...] Appt Next on 08/09/24. Contact pt at [phone] documented in this encounter Plan of Treatment Upcoming Encounters Date Type Department Care Team ([facility] st Contact Info) Description 04/04/2025 9:00 AM EDT Clinical Support [facility] MED & PEDS [address] [place] [address] Alayna Ambrosio RN [address] [place] [address] 06/04/2025 9:30 AM EST Clinical Support [facility] MED & PEDS [address] [place] [address] documented as of this encounter Visit Diagnoses Not on filedocumented in this encounter Additional Health Concerns Assessment Noted Time PHQ-9 Depression Total Score: 2 07/10/19 23 11:06 AM EST documented as of this encounter Care Teams Training Program Assistant Relationship Specialty Start Date End Date Kristina Anne MD [address] [place] [address] PCP - General Internal Medicine 06/26/15 documented as of this encounter
--- OUTSIDE RECORDS SUMMARY | 2025-02-27 17:46 | XMS_ITS | Encounter Summary ---
Author Organization [employer] Address [address] [place] [address] Care Team Providers Care Information Technology Architect Name Role Phone Kristina Anne MD Primary Care Provider +1- [phone] Reason for Visit * Reason Onset Date Comments Med Refill 02/25/2025 Encounter Details Date Type Department Care Team ([facility] st Contact Info) Description 02/25/2025 Refill [facility] CHC MED & PEDS [address] [place] [address] Kristina Anne MD [address] [place] [address] Chronic pain syndrome Social History Tobacco Use [...] Upcoming Encounters Date Type Department Care Team ([facility] st Contact Info) Description 04/04/2025 9:00 AM EDT Clinical Support [facility] MED & PEDS [address] [place] [address] Alayna Ambrosio RN [address] [place] [address] 06/04/2025 9:30 AM EST Clinical Support [facility] MED & PEDS [address] [place] [address] documented as of this encounter Visit Diagnoses Diagnosis Chronic pain syndrome documented in this encounter Additional Health Concerns Assessment Noted Time PHQ-9 Depression Total Score: 4 11/30/19 25 11:03 AM EDT documented as of this encounter Care Teams Information Technology Architect Relationship Specialty Start Date End Date Kristina Anne MD [address] [place] [address] PCP - General Internal Medicine 06/26/15 documented as of this encounter
--- OUTSIDE RECORDS SUMMARY | 2025-02-27 17:46 | XMS_ITS | Encounter Summary ---
Author Organization [employer] Address [address] [place] [address] Care Team Providers Care Anatomical Embalmer Name Role Phone Kristina Anne MD Primary Care Provider +1- [phone] Reason for Referral * Consultation (Routine) - Closed Specialty Diagnoses / Procedures Referred By Contac t Referred To Contact Gastroenterology Diagnoses Encounter for screening colonoscopy Kristina Anne MD [address] [place] [address] Phone: tel: fax: Perri Gregorio MD [address] [place] [address] Phone: tel: fax: Referral ID Status Reason Start Date Expiration Date V isits Requested Visits Authorized [id number] Closed Specialty Services Required 12/20/2023 12/19/2024 1 1 Encounter Details Date Type Department Care Team (Late st Contact Info) Description 12/20/2023 Orders Only [facility] CHC MED & PEDS [address] [place], [place] [id number] Kristina Anne MD [address] [place] [address] Encounter for screening colonoscopy (Primary Dx) Social [...] Description 04/04/2025 9:00 AM EDT Clinical Support [facility] MED & PEDS [address] [place] [address] Alayna Ambrosio RN [address] [place] [address] 06/04/2025 9:30 AM EST Clinical Support [facility] MED & PEDS [address] [place] [address] Scheduled Referrals Name Type Priority Associated Diagnoses [...] documented as of this encounter Care Teams Anatomical Embalmer Relationship Specialty Start Date End Date Kristina Anne MD [address] [place] [address] PCP - General Internal Medicine 06/26/15 documented as of this encounter
[2025-02-28 08:46] LABS: HIV Num 1 0.08 S/CO (0.00-0.99)
== END 2025-02-27 14:36 | disposition home or self-care (01) ==
LOC: HO.LAB 14:35
PROVIDERS: PCP Internal Medicine; Visit Provider Internal Medicine
DX: Z11.4 Encounter for screening for human immunodeficiency virus [HIV] (principal); Z01.84 Encounter for antibody response examination; Z11.3 Encounter for screening for infections with a predominantly sexual mode of transmission; L30.9 Dermatitis, unspecified
CPT/HCPCS: 36415; 85025; 86592; 86695; 86696; 87389